=== PATIENT | male | born 1975 | race Caucasian/White ===

== ENCOUNTER → 2019-09-09 16:33 | Outpatient (CLI) | payer OTHER, SELFPAY ==
[2016-07-17 22:47] VITALS: BMI 33.4
[2019-09-09 17:07] LABS: Absolute Neutrophil Count 7.8 X10^3/uL (2.0-7.7); Basophil# 0.14 X10^3/uL; Basophil% 1.2 % (0-1); Eosinophil# 0.31 X10^3/uL; Eosinophils% 2.6 % (0-5); Hematocrit 51.2 % (40-54); Lymphocyte % 18.5 % (19-41); Mean Corp Hgb Conc 33.2 g/dL (32-36); Mean Corpuscular Hgb 29.3 pg (27.0-32.0); Mean Corpuscular Volume 88.1 fL (80-94); Mean Platelet Vol. 10.8 fl (6.2-12.0); Monocyte# 1.34 X10^3/uL; Monocyte% 11.3 % (0-10); NRBC Flagged by Analyzer 0 % (0-5); Neutrophil # 7.78 X10^3/uL (2.7-7.7); Neutrophil % 65.6 % (47-70); Platelet Count 300 K/mm3 (150-450); RBC Distribution Width CV 12.6 % (11.6-14.6); RBC Distribution Width SD 40.9 fl (35.1-43.9); Red Blood Count 5.81 M/mm3 (4.6-6.2); White Blood Count 11.9 K/mm3 (4.4-11.0)
[2019-09-09 17:31] LABS: ALB/GLOB Ratio 0.9 RATIO (0.9-2.4); AST(SGOT) 25 U/L (15-37); Alanine Aminotransfer ALT/SGPT 74 U/L (16-61); Albumin, Serum 3.6 g/dL (3.2-5.0); Alkaline Phosphatase 86 U/L (45-117); Anion Gap 5 (5-15); BUN 13 mg/dL (7-18); BUN/Creat Ratio 13.9 RATIO (10-20); Calcium,Total 9.7 mg/dL (8.5-10.1); Chloride 105 mmol/L (98-107); Creatinine, Serum 0.93 mg/dL (0.70-1.30); EST Glomerular Filtration Rate 94 mL/min (>60); Est Glom Filt Rate - Afr Amer 114 mL/min (>60); Globulin 4.2 g/dL (2.2-4.2); Glucose 94 mg/dL (74-106); Potassium 4.4 mmol/L (3.5-5.1); Protein, Total 7.8 g/dL (6.4-8.2); Sodium Level 141 mmol/L (136-145); Thyroid Stim Hormone (TSH) 2.47 uIU/mL (0.358-3.74)
== END ==
PROVIDERS: Visit Provider Family Medicine Geriatric Medicine
DX: I10 Essential (primary) hypertension (principal)
CPT/HCPCS: 36415; 80053; 84443; 85025

== ENCOUNTER 2019-10-11 21:22 | Emergency (ER) | payer OTHER, SELFPAY ==
[2019-10-11 21:23] VITALS: BP 206/131; PULSE 103; RESP 15; TEMP 36.2; O2SAT 97; BMI 42.4
--- NOTE | 2019-10-11 21:58 | EKG12_ITS ---
Test Reason : CP Blood Pressure : / mmHG Vent. Rate : 100 BPM Atrial Rate : 100 BPM P-R Int : 110 ms QRS Dur : 078 ms QT Int : 344 ms P-R-T Axes : 046 029 047 degrees QTc Int : 443 ms Sinus rhythm with short DC Nonspecific ST and T wave abnormality Abnormal ECG Confirmed by JUICE EDWARDS, MADDY ([id number]), offline editor STACIE SCOTT ([id number]) on 10/14/2019 2:38:04 PM Referred By: MARY Confirmed By:MADDY BOSE MD
[2019-10-11] MEDS: Aspirin 81 MG TAB.CHEW 324 MG PO (22:03)
[2019-10-11 22:04] VITALS: O2SAT 94
--- NOTE | 2019-10-11 22:04 | ED.DCSUM_ITS ---
History of Present Illness Chief Complaint: Chest Pain Informant: Patient Narrative: Patient is a 43-year-old male presenting with 3 days of chest tightness. Patient states he thought it would go away and it has not. He states he is had some slight associated shortness of breath on exertion but has not thought too much of it. He denies any associated cough or fever. He states he feels hot now but thinks it is because the room is hot and he is wearing a mask. He is not had chest pain with it. He denies any associated nausea, vomiting or diaphoresis. He denies any swelling of his legs. He states a couple years ago he had a similar episode of chest tightness and it turned out to be nothing. Patient has been told he has borderline high blood pressure but is not on any medication. He does have obstructive sleep apnea and is compliant with his CPAP. He has had no change in his sleep habits lately. He denies any orthopnea. He denies any sick contacts. He denies any other complaints at this time. Prior Similar Symptoms: No CVD Risk Factors: Hypertension, Smoking Past Medical History - Allergies and Home Meds Allergies/Adverse Reactions: Allergies shellfish derived Allergy (Verified 10/11/19 21:30) Rash Primary Care Physician: Roni Luke MD [Primary Care Provider] - Past Medical History: - - Hypertension?not currently on any medications, obstructive sleep apnea Surgical History: noncontributory Smoking Status: Current every day smoker - Family History Maternal Family History: Reports: No pertinent history Paternal Family History: Reports: No pertinent history Review of Systems General: Denies: Chills, Fever, Sweats Eyes: Denies: Visual changes - bilaterally, Diplopia ENT: Denies: Rhinorrhea, Sore throat Cardiovascular: Reports: Chest pain - Tightness. Denies: Palpitations Respiratory: Reports: Dyspnea. Denies: Cough, Dyspnea on exertion Gastrointestinal: Denies: Abdominal pain, Nausea, Vomiting, Diarrhea, Melena, Hematochezia Genitourinary: Denies: Dysuria, Hematuria, Frequency Musculoskeletal: Denies: Back pain, Extremity Pain Skin: Denies: Rash, Wounds Neurological: Denies: Headache, Weakness, Numbness Physical Exam Vital Signs/Narrative: Vital Signs Temp Pulse Resp BP Pulse Ox 10/11/19 21:23 97.1 F L 103 H 15 206/131 H 97 Inital Vital Signs reviewed: Yes General: Well nourished, Well developed, Obese, No Acute Distress Head: Normocephalic, Atraumatic Eyes: Perrl, EOMI ENT: Moist mucous membranes, No rhinorrhea Neck: Supple, Nontender Cardiovascular: Regular rhythm, No murmurs, Tachycardia Respiratory: No distress, CTA bilaterally, Chest nontender Abdomen: Soft, Nontender, Nondistended, Normal bowel sounds Back: Nontender, Normal Inspection Extremities: Nontender, No edema. Negative for: Calf Tenderness Skin: Normal color, No rash, - - Patient sweating Neurological: Alert, Oriented x3, Cranial nerves II-XII grossly intact, Normal Strength, Normal Sensation Psychological: Normal affect, Normal Mood Diagnostic/Tx/Re-eval Chest X-Ray - ED: 1 View, Read by ED Physician, Read by Radiologist, No Acute Disease Clinical Impression(s) from Imaging Studies Chest X-Ray 10/11/19 22:05 IMPRESSION: Stable elevation of the right hemidiaphragm. No acute pulmonary findings. Electronically Signed: Danny Sanderson MD at 22:25 EDT Tel , Service support , Laboratory Data 10/11/19 10/11/19 10/11/19 21:45 21:45 21:45 WBC 12.9 H RBC 6.01 Hgb 17.9 H Hct 53.4 MCV 88.9 MCH 29.8 MCHC 33.5 RDW Std Deviation 41.0 RDW Coeff of Kassidy 12.6 Plt Count 313 MPV 10.6 Immature Gran % (Auto) 0.800 Neut % (Auto) 66.9 Lymph % (Auto) 18.4 L [place] % (Auto) 10.7 H Eos % (Auto) 2.1 Baso % (Auto) 1.1 H Absolute Neuts (auto) 8.6 H Absolute Lymphs (auto) 2.37 Nucleated RBC % 0 PT 11.8 INR 0.9 D-Dimer Quant (PE/DVT) 0.30 Sodium 139 Potassium 4.5 Chloride 107 Carbon Dioxide 27.0 Anion Gap 5 BUN 11 Creatinine 1.04 Estim Creat Clear Calc 92.53 Est GFR (MDRD) Af Amer 100 Est GFR (MDRD) Non-Af 83 BUN/Creatinine Ratio 10.6 Glucose 167 H Calcium 9.3 Troponin I < 0.015 B-Natriuretic Peptide 10/11/19 21:45 WBC RBC Hgb Hct MCV MCH MCHC RDW Std Deviation RDW Coeff of Kassidy Plt Count MPV Immature Gran % (Auto) Neut % (Auto) Lymph % (Auto) [place] % (Auto) Eos % (Auto) Baso % (Auto) Absolute Neuts (auto) Absolute Lymphs (auto) Nucleated RBC % PT INR D-Dimer Quant (PE/DVT) Sodium Potassium Chloride Carbon Dioxide Anion Gap BUN Creatinine Estim Creat Clear Calc Est GFR (MDRD) Af Amer Est GFR (MDRD) Non-Af BUN/Creatinine Ratio Glucose Calcium Troponin I B-Natriuretic Peptide 29.8 - Rhythm Strip Rhythm Strip: Sinus Tach Rate: 100 Ectopy: None - EKG Initial EKG Interpretation: Sinus Tachycardia, - - Sinus tachycardia at a rate of 100 IL interval 110 QRS 78 QTc [address] segments Treatment: Aspirin TRUDY Risk: No Positive TRUDY Elements Score: 0 - Medical Decision Making Patient is evaluated for hypertension and chest tightness. He denies chest pain per se just has this diffuse tightness in his chest. Is been ongoing for 3 days. He has some very mild shortness of breath associated with it. No associated jaw or arm pain. No swelling of his legs. No upper respiratory or flulike symptoms. Vital signs are significant for hypertension. Patient's been told his blood pressures been elevated the past is not sure how high. He is not on any medications for it. EKG is relatively unremarkable with no dynamic ST segment changes. Is not consistent with a STEMI. As patient is tachycardic on arrival otherwise low risk for PE, I did check a d-dimer. This was normal. Troponin was normal. Chest x-ray not show an acute process. Normal proBNP and no signs of fluid overload. His heart score is 2 and he is low risk. His chest pain is atypical for ACS. While patient is hypertensive he does not have any fi ndings consistent with a hypertensive emergency. He is given 1 dose of hydrochlorothiazide in the emergency room. He is counseled to check his blood pressure over the next few days and to return if it worsens or he is significantly worsening symptoms. He will follow-up with his PCP on [place] for likely blood pressure check and arrangement for outpatient cardiac evaluation. Did discuss with on-call physician, Dr. Smith who is agreeable with this plan. Patient has not started on antihypertensive from the ER as I only have today as evidence of high blood pressures. Patient is counseled on signs and symptoms requiring return to the emergency room. Patient verbalizes agreement and understand this plan. Patient discharged home in stable and improved condition. ED Disposition - Plan for ED Patient: Disposition: Home or Assisted Living Diagnosis: Chest tightness, Hypertension Instructions: ED HBP No Tx, ED Chest Pain Atypical Unkn Cause Referrals: Roni Luke MD [Primary Care Provider] - Additional Instructions: Please check your blood pressure tomorrow. If he continues to be significantly elevated (top number over 200) and you continue to have chest tightness please return to the emergency room. Your symptoms worsen return the emergency room. Otherwise please follow-up with your primary care doctor on Monday for blood pressure check and further evaluation of this chest tightness.
--- NOTE | 2019-10-11 22:05 | RAD_ITS ---
STUDY: X-RAY CHEST REASON FOR EXAM: Male, 43 years old. chest pain TECHNIQUE: Single frontal view of the chest. COMPARISON: 07/17/2016 FINDINGS: Stable elevation of the right hemidiaphragm. No acute pulmonary findings. There is no demonstrated pleural abnormality. Normal size heart. Normal mediastinum and sammy. Normal visualized pulmonary arteries. Normal visualized aortic arch and descending thoracic aorta. Normal visualized thoracic spine. Normal visualized ribs, clavicles, and shoulders. There is no demonstrated abnormality of the visualized soft tissue structures of the upper abdomen. RAD/Chest 1 View (Portable) IMPRESSION: Stable elevation of the right hemidiaphragm. No acute pulmonary findings. Electronically Signed: Danny Sanderson MD at 22:25 EDT Tel , Service support ,
[2019-10-11 22:13] LABS: Absolute Lymphocyte Count 2.37 X10^3/uL (0.83-4.51); Absolute Neutrophil Count 8.6 X10^3/uL (2.0-7.7); Basophil# 0.14 X10^3/uL; Basophil% 1.1 % (0-1); Eosinophil# 0.27 X10^3/uL; Eosinophils% 2.1 % (0-5); Hematocrit 53.4 % (40-54); Hemoglobin 17.9 g/dL (13.0-16.5); Lymphocyte # 2.37 X10^3/ul (4.0); Lymphocyte % 18.4 % (19-41); Mean Corp Hgb Conc 33.5 g/dL (32-36); Mean Corpuscular Hgb 29.8 pg (27.0-32.0); Mean Corpuscular Volume 88.9 fL (80-94); Mean Platelet Vol. 10.6 fl (6.2-12.0); Monocyte# 1.38 X10^3/uL; Monocyte% 10.7 % (0-10); NRBC Flagged by Analyzer 0 % (0-5); Neutrophil # 8.64 X10^3/uL (2.7-7.7); Neutrophil % 66.9 % (47-70); Platelet Count 313 K/mm3 (150-450); RBC Distribution Width CV 12.6 % (11.6-14.6); Red Blood Count 6.01 M/mm3 (4.6-6.2); White Blood Count 12.9 K/mm3 (4.4-11.0)
[2019-10-11 22:16] LABS: International Normalized Ratio 0.9; Prothrombin Time (Protime)PT. 11.8 SECONDS (11.7-14.9)
[2019-10-11 22:20] LABS: Anion Gap 5 (5-15); BUN 11 mg/dL (7-18); BUN/Creat Ratio 10.6 RATIO (10-20); Calcium,Total 9.3 mg/dL (8.5-10.1); Chloride 107 mmol/L (98-107); Creatinine, Serum 1.04 mg/dL (0.70-1.30); EST Glomerular Filtration Rate 83 mL/min (>60); Est Glom Filt Rate - Afr Amer 100 mL/min (>60); Estimated Creatinine Clearance 92.53 ml/min; Glucose 167 mg/dL (74-106); Potassium 4.5 mmol/L (3.5-5.1); Sodium Level 139 mmol/L (136-145)
[2019-10-11 22:22] VITALS: BP 184/102
[2019-10-11 22:34] LABS: BNP,B-Type NATRIURETIC PEPTIDE 29.8 pg/mL (0-100)
[2019-10-11 23:12] VITALS: BP 176/75; PULSE 81; RESP 22
[2019-10-11] MEDS: hydroCHLOROthiazide 25 MG Tablet PO (23:46)
== END 2019-10-12 00:01 | disposition home or self-care (01) ==
PROVIDERS: Emergency Provider Emergency Medicine; PCP Family Medicine
DX: R07.89 Other chest pain (principal); I10 Essential (primary) hypertension; E66.9 Obesity, unspecified; F17.200 Nicotine dependence, unspecified, uncomplicated; R06.02 Shortness of breath
CPT/HCPCS: 71045; 80048; 83880; 84484; 85025; 85379; 85610; 93005; 99284; A4216

== ENCOUNTER 2019-12-13 11:24 | Emergency (ER) | payer OTHER, SELFPAY ==
[2019-12-13 11:25] VITALS: BP 193/120; PULSE 101; RESP 17; TEMP 36.1; O2SAT 96; BMI 41.5
--- NOTE | 2019-12-13 11:35 | CT_ITS ---
STUDY: CT BRAIN WITHOUT CONTRAST REASON FOR EXAM: Male, 44 years old. PT STATED HEADACHE, BP OF 177/123 RADIATION DOSAGE (If Supplied By Facility): CTDIvol = ( 44.99 ) mGy, DLP = ( 796.11 ) mGycm TECHNIQUE: Transaxial CT imaging of the brain was performed without administration of intravenous contrast material. Individualized dose optimization techniques were used for this CT. COMPARISON: No relevant priors. FINDINGS: Normal soft tissue structures. Normal calvarium. Normal size ventricles and extra-axial spaces for the patient''s age. Normal white matter tracts of the cerebral hemispheres. Normal basal ganglia and thalami. Normal brainstem. Normal cerebellum. There is no intracranial hemorrhage. There are no findings of an acute ischemic infarction. Mild mucosal thickening and probable retention cysts in the paranasal sinuses. CT/Brain/Head without Contrast IMPRESSION: Normal unenhanced CT scan of the brain. Mild paranasal sinus disease. Electronically Signed: Sathish Ansari DO at 12:22 EDT Tel [phone], Service support ,
--- NOTE | 2019-12-13 11:35 | EKG12_ITS ---
Test Reason : HTN Blood Pressure : / mmHG Vent. Rate : 071 BPM Atrial Rate : 071 BPM P-R Int : 134 ms QRS Dur : 082 ms QT Int : 422 ms P-R-T Axes : 019 010 157 degrees QTc Int : 458 ms Normal sinus rhythm Nonspecific T wave abnormality Abnormal ECG Confirmed by LUCIANA SHARP ([id number]), editor greeting card MAURA TAYLOR ([id number]) on 12/16/2019 2:12:41 PM Referred By: RONY Confirmed By:LUCIANA SHARP
--- NOTE | 2019-12-13 11:38 | ED.VIS.GEN ---
History of Present Illness Chief Complaint: Hypertension Detail of Chief Complaint: Headache, sweats Informant: Patient, Family Onset: Days - 3 days Current Severity: Mild Maximum Severity: Moderate Narrative: Patient presents with headache for the past 3 days. He points to the bilateral temporal area. states that he has been sweating a lot in spite of having central air conditioning. Blood pressure was checked and he was noted be quite hypertensive. On review of records patient was here 2 months ago with atypical chest pain. He was found to be significantly hypertensive at that time. Plan was to follow-up with his PCPs office for repeat blood pressure check and initiation of medication if needed. Patient never followed up for that visit. Past Medical History - Allergies and Home Meds Allergies/Adverse Reactions: Allergies shellfish derived Allergy (Verified 12/13/19 11:25) Rash Primary Care Physician: Roni Luke MD [Primary Care Provider] - Past Medical History: None Surgical History: noncontributory Lives: With Family Smoking Status: Current every day smoker - Family History Maternal Family History: Reports: No pertinent history Paternal Family History: Reports: No pertinent history Review of Systems General: Denies: Chills, Fever Eyes: Denies: Visual changes - bilaterally ENT: Denies: Bilateral ear pain Cardiovascular: Denies: Chest pain Respiratory: Denies: Dyspnea, Cough Gastrointestinal: Reports: Nausea. Denies: Abdominal pain, Vomiting Genitourinary: Denies: Dysuria Neurological: Reports: Headache Hematologic: Denies: Easy bruising, Easy bleeding Allergy: Denies: Uticaria Physical Exam Vital Signs/Narrative: Vital Signs Temp Pulse Resp BP Pulse Ox 12/13/19 11:25 96.9 F L 101 H 17 193/120 H 96 Inital Vital Signs reviewed: Yes General: Well nourished, Well developed Head: Normocephalic ENT: Moist mucous membranes Neck: Supple Cardiovascular: Regular rate, Regular rhythm Respiratory: No distress, CTA bilaterally Abdomen: Soft, Nontender Extremities: Nontender Skin: Normal color, No rash Neurological: Alert, Oriented x3, Normal Strength, Normal Sensation Psychological: Normal affect Diagnostic/Tx/Re-eval Impressions Brain CT 12/13/19 11:35 IMPRESSION: Normal unenhanced CT scan of the brain. Mild paranasal sinus disease. Electronically Signed: Sathish Ansari DO at 12:22 EDT Tel [phone], Service support , 12/13/19 11:35 Brain/Head without Contrast [CT] Stat Laboratory Results 12/13/19 12/13/19 11:40 11:40 WBC 15.8 H RBC 5.81 Hgb 17.7 H Hct 50.5 MCV 86.9 MCH 30.5 MCHC 35.0 RDW Std Deviation 39.4 RDW Coeff of Kassidy 13.0 Plt Count 315 MPV 10.1 Immature Gran % (Auto) 0.900 Neut % (Auto) 67.9 Lymph % (Auto) 17.8 L [place] % (Auto) 11.1 H Eos % (Auto) 1.4 Baso % (Auto) 0.9 Absolute Neuts (auto) 10.7 H Absolute Lymphs (auto) 2.80 Nucleated RBC % 0 [address] Review May foll Reactive Lymphocytes RARE Platelet Estimate ADEQUATE RBC Morphology NORM C+C Sodium 137 Potassium 3.4 L Chloride 102 Carbon Dioxide 28.0 Anion Gap 7 BUN 12 Creatinine 0.94 Estim Creat Clear Calc 101.33 Est GFR (MDRD) Af Amer 113 Est GFR (MDRD) Non-Af 93 BUN/Creatinine Ratio 12.8 Glucose 125 H Calcium 8.8 Troponin I < 0.015 - EKG Initial EKG Interpretation: Sinus Rhythm - Sinus at [address] change. - Medical Decision Making Patient was given 10 mg of IV labetalol. Blood pressure did come down into the 160s. Blood pressure is currently 180 systolic. Patient does state that his headache feels better. I spoke with Dr. Rodrigues, on-call for the patient's PCP. We will start the patient on Lopressor 50 mg. Patient is to follow-up in the office for repeat blood pressure checks. ED Disposition - Plan for ED Patient: Disposition: Home or Assisted Living Diagnosis: Hypertension Instructions: ED Hypertension New Begin Treatment Prescriptions: Metoprolol Tartrate [Lopressor (Beta Silvio)] 50 mg PO BID #60 tab Transmission Status: Pending to [id number] Referrals: Roni Luke MD [Primary Care Provider] - 1-2 Weeks
[2019-12-13 11:50] LABS: Absolute Neutrophil Count 10.7 X10^3/uL (2.0-7.7); Basophil# 0.14 X10^3/uL; Basophil% 0.9 % (0-1); Eosinophil# 0.22 X10^3/uL; Eosinophils% 1.4 % (0-5); Hematocrit 50.5 % (40-54); Hemoglobin 17.7 g/dL (13.0-16.5); Lymphocyte % 17.8 % (19-41); Mean Corpuscular Hgb 30.5 pg (27.0-32.0); Mean Corpuscular Volume 86.9 fL (80-94); Mean Platelet Vol. 10.1 fl (6.2-12.0); Monocyte# 1.75 X10^3/uL; Monocyte% 11.1 % (0-10); NRBC Flagged by Analyzer 0 % (0-5); Neutrophil # 10.71 X10^3/uL (2.7-7.7); Neutrophil % 67.9 % (47-70); POSITIVE DIFFERENTIAL YES; Platelet Count 315 K/mm3 (150-450); RBC Distribution Width SD 39.4 fl (35.1-43.9); Red Blood Count 5.81 M/mm3 (4.6-6.2); White Blood Count 15.8 K/mm3 (4.4-11.0)
[2019-12-13 11:52] VITALS: BP 193/114
[2019-12-13 11:52] LABS: Differential Indicated SCAN CRITERIA MET
[2019-12-13 11:57] VITALS: BP 163/99; PULSE 75
[2019-12-13 12:08] LABS: Anion Gap 7 (5-15); BUN 12 mg/dL (7-18); BUN/Creat Ratio 12.8 RATIO (10-20); Calcium,Total 8.8 mg/dL (8.5-10.1); Chloride 102 mmol/L (98-107); Creatinine, Serum 0.94 mg/dL (0.70-1.30); EST Glomerular Filtration Rate 93 mL/min (>60); Est Glom Filt Rate - Afr Amer 113 mL/min (>60); Estimated Creatinine Clearance 101.33 ml/min; Glucose 125 mg/dL (74-106); Potassium 3.4 mmol/L (3.5-5.1); Sodium Level 137 mmol/L (136-145)
[2019-12-13 12:24] VITALS: BP 166/113
[2019-12-13 12:31] LABS: Platelet Estimate ADEQUATE (ADEQ); Reactive Lymphocyte RARE; Red Cell Morphology NORM C+C NORMAL (NORM C&C)
[2019-12-13 12:41] VITALS: BP 153/106
[2019-12-13 13:35] VITALS: BP 182/112; PULSE 72; O2SAT 97
[2019-12-13] MEDS: Metoprolol Tartrate 25 MG Tablet 50 MG PO (13:51)
[2019-12-16 11:40] LABS: Pathologist Review Reviewed
== END 2019-12-13 13:52 | disposition home or self-care (01) ==
PROVIDERS: Emergency Provider Emergency Medicine; PCP Family Medicine
DX: I10 Essential (primary) hypertension (principal); F17.200 Nicotine dependence, unspecified, uncomplicated
CPT/HCPCS: 70450; 80048; 84484; 85025; 93005; 96374; 99284; A4216

== ENCOUNTER 2021-07-04 12:33 | Emergency (ER) | payer OTHER, SELFPAY ==
[2021-07-04 12:33] VITALS: BP 158/87; PULSE 68; RESP 18; TEMP 36.4; O2SAT 97; BMI 41.8
--- NOTE | 2021-07-04 13:22 | RAD_ITS ---
STUDY: X-RAY - UNILATERAL RIBS ( RIGHT ) WITH CHEST REASON FOR EXAM: Male, 45 years old. Injury TECHNIQUE - RIBS: 4 view(s) of the ribs. TECHNIQUE - CHEST: Single frontal view of the chest. COMPARISON: Chest x-ray October 11, 2019 FINDINGS - RIBS: There are right fifth through seventh rib fractures of uncertain age. FINDINGS - CHEST: The lungs are clear and expanded. There is no demonstrated pleural abnormality. Normal size heart. Normal mediastinum and sammy. Normal visualized pulmonary arteries. Normal visualized aortic arch and descending thoracic aorta. Normal visualized thoracic spine. There are right fifth through seventh rib fractures of uncertain age. There is no demonstrated abnormality of the visualized soft tissue structures of the upper abdomen. RAD/Ribs Uni Min 3V w/PA Chest IMPRESSION: RIBS: Right rib fractures of uncertain age. CHEST: Right rib fractures of uncertain age. No pneumothorax. Electronically Signed: Mynor Coppola MD at 15:19 EST , Service support ,
[2021-07-04] MEDS: cycloBENZAPRine HCl 10 MG Tablet PO (13:30)
[2021-07-04] MEDS: HYDROcodone Bitartrate/Apap 5/325 Tablet PO (13:30)
[2021-07-04 14:33] VITALS: PULSE 16
[2021-07-04 16:00] VITALS: PULSE 70; RESP 18
--- NOTE | 2021-07-04 16:24 | EDS_ITS ---
HPI History of Present Illness Chief Complaint: Cough Detail of Chief Complaint: Right chest wall pain Informant: patient Onset/Context/Timing Onset: Weeks Current Severity: Moderate Maximum Severity: Moderate Narrative Narrative: Patient presents secondary to right-sided chest wall pain. Patient states just before [place] he had bronchitis. He coughed hard and felt pain in the right lateral ribs. Over the next couple weeks symptoms were improving. Today he had another coughing fit and has increased pain. He will report intermittent spasm-like pain on the right chest wall. No fever or chills. He was diagnosed with COVID 2 weeks ago [facility] Medical History Hypertension Home Medications escitalopram oxalate 20 mg PO DAILY 10/11/19 [History Last Taken Unknown] bupropion HCl 150 mg PO DAILY 12/13/19 [History Last Taken Unknown] metoprolol tartrate 50 mg PO BID #60 tab 12/13/19 [Rx Last Taken Unknown] cyclobenzaprine 10 mg PO BID PRN #10 tab 07/04/21 [Rx Last Taken Unknown] hydrocodone-acetaminophen 1 tab PO Q6H PRN 3 Days #10 tab 07/04/21 [Rx Last Taken Unknown] Allergy/AdvReac Type Severity Reaction Status Date / Time shellfish derived Allergy Rash Verified 07/04/21 13:13 Social History Smoking Status: Current every day smoker tobacco type: cigarettes ROS ROS ED Constitutional Constitutional ED: Denies chills or fever(s) Eyes Eyes: Denies change in vision ENT ENT ED: Denies sore throat Cardiovascular Cardiovascular: Reports chest pain Respiratory/Chest Respiratory/Chest: Reports cough; Denies dyspnea Gastrointestinal Gastrointestinal: Denies abdominal pain, nausea or vomiting Genitourinary Genitourinary ED: Denies dysuria Musculoskeletal Musculoskeletal: Denies back pain Integumentary Denies rash Neurologic Neurologic: Denies headache(s) or weakness Allergic/Immunologic Allergic/Immunologic ED: Denies urticaria EXAM Physical Exam Const Vital Signs: 07/04/21 12:33 07/04/21 13:10 07/04/21 14:33 Temperature 97.6 F L Temperature Source Temporal Pulse Rate 68 16 L Respiratory Rate 18 Respiratory Effort Normal Respiratory Pattern Normal Blood Pressure 158/87 H Blood Pressure Mean 110 Pulse Ox 97 Oxygen Delivery Method Room Air 07/04/21 16:00 07/04/21 16:36 Temperature Temperature Source Pulse Rate 70 Respiratory Rate 18 16 Respiratory Effort Respiratory Pattern Blood Pressure Blood Pressure Mean Pulse Ox Oxygen Delivery Method Positive well nourished and well developed General Appearance ED: well developed HEENT Reports moist mucous membranes Eyes PERRL and EOMs intact bilaterally Neck no lymphadenopathy and supple Chest Wall inspection of chest normal Chest Narrative: Right lateral chest wall pain on palpation. No crepitus. Resp normal respiratory effort and clear to auscultation bilaterally Cardio regular rate and regular rhythm GI non-tender Palpation: soft Extremity normal to inspection Neuro oriented x3 Sensorium / Orientation: alert Psych mental status grossly normal Skin no rashes or lesions noted MDM MDM MDM Narrative Medical decision making narrative: Patient given [place] and Flexeril for pain and spasm. Rib series with chest x-ray obtained. Radiography Diagnostic Testing: Clinical Impression(s) from Imaging Studies Ribs w/Chest X-Ray 07/04/21 13:22 IMPRESSION: RIBS: Right rib fractures of uncertain age. CHEST: Right rib fractures of uncertain age. No pneumothorax. Electronically Signed: Mynor Coppola MD at 15:19 EST , Service support , Treatment and Re-Evaluation Comments:: Rib x-rays per my interpretation reveal right-sided fracture. Radiology to rotation is reviewed and does include fractures of ribs 5, 6, and 7 of uncertain age. No evidence of pneumothorax. Test results discussed with the patient. Patient given prescription for [place] and Flexeril. He is given work restrictions for this week. Discharge Plan Triage Chief Complaint: Cough ED Provider: Sherie Simpson Dx/Rx/DC Orders Clinical Impression: Fracture, ribs Instructions: ED Rib Fracture Prescriptions: New hydrocodone-acetaminophen 5-325 mg tablet 1 tab PO Q6H PRN (Reason: pain) 3 Days Qty: 10 RF: 0 cyclobenzaprine 10 mg tablet 10 mg PO BID PRN (Reason: muscle spasm) Qty: 10 RF: 0 No Action escitalopram oxalate 20 MG tablet 20 mg PO DAILY RF: 0 bupropion HCl 150 MG tablet extended release 24 hr 150 mg PO DAILY RF: 0 metoprolol tartrate 50 MG tablet 50 mg PO BID Qty: 60 RF: 0 Stand Alone Forms: ED Work / School Excuse Primary Care Provider: Roni Luke Referrals: Roni Luke MD [Primary Care Provider] - 1 Week Disposition Disposition: Home, Self Care Discharge Date/Time: 07/04/21 16:36
[2021-07-04 16:36] VITALS: RESP 16
== END 2021-07-04 16:36 | disposition home or self-care (01) ==
PROVIDERS: Emergency Provider Emergency Medicine; PCP Family Medicine; Visit Provider Emergency Medicine
DX: S22.41XA Multiple fractures of ribs, right side, initial encounter for closed fracture (principal); F17.210 Nicotine dependence, cigarettes, uncomplicated; I10 Essential (primary) hypertension; X58.XXXA Exposure to other specified factors, initial encounter; Z79.899 Other long term (current) drug therapy
CPT/HCPCS: 71101; 99283

== ENCOUNTER 2021-07-24 07:01 | Emergency (ER) | payer OTHER, SELFPAY ==
[2021-07-24 07:03] VITALS: BP 116/88; PULSE 75; RESP 18; TEMP 36.7; O2SAT 94; BMI 41.0
--- NOTE | 2021-07-24 07:13 | ED.VIS.CHEST ---
HPI History of Present Illness Chief Complaint: Other, Pain/Inj Detail of Chief Complaint: Right lateral lower chest wall pain with a history of 3 rib fractures. Informant: patient Onset/Context/Timing Onset: Weeks Activity at onset: gradual Timing: Intermittent Quality: Positive for Aching, Sharp and Stabbing Location: Right Chest Current Severity: Mild Maximum Severity: Moderate Worsened By: Movement of Torso and Breathing Relieved By: Remaining Still Associated Symptoms: Positive for Cough; Negative for Nausea, Vomiting, Diaphoresis, Dyspnea, Fever, Acid Reflux and Palpitations Narrative Narrative: 45-year history of hypertension. For the last several weeks he has had a known diagnosis of 3 rib fractures on the right chest from numbers 5 6, 6 and 7. He had a prior emergency visit around July 04 and x-ray obtained at that time. I believe this occurred from coughing. He has had no chest wall trauma. States today he was coughing again on his way to work and got significant right-sided chest wall pain. No shortness of breath. No other symptoms. He has had no fever. Prior Similar Symptoms: Yes Recent Illness/Hospitalization: No CVD Risk Factors: Positive for Hypertension PE Risk Factors: Negative for Recent Travel/Surgery, Recent Immobilization, Prior DVT or PE, Cancer and OCP + Smoking + >/=35 PFSH PFSH Medical History Hypertension Home Medications escitalopram oxalate 20 mg PO DAILY 10/11/19 [History Last Taken Unknown] bupropion HCl 150 mg PO DAILY 12/13/19 [History Last Taken Unknown] metoprolol tartrate 50 mg PO BID #60 tab 12/13/19 [Rx Last Taken Unknown] cyclobenzaprine 10 mg PO BID PRN #10 tab 07/04/21 [Rx Last Taken Unknown] hydrocodone-acetaminophen 1 tab PO Q6H PRN 3 Days #10 tab 07/04/21 [Rx Last Taken Unknown] Allergy/AdvReac Type Severity Reaction Status Date / Time shellfish derived Allergy Rash Verified 07/24/21 07:09 Social History Smoking Status: Current every day smoker tobacco type: cigarettes ROS ROS ED ROS Narrative Right chest wall pain. No recent illness. He had COVID 1 to 2 months ago. Review of Systems ROS Unobtainable: Denies due to encephalopathy Constitutional Constitutional ED: Denies fever(s) or subjective Eyes Eyes: Denies none ENT ENT ED: Denies ear pain or rhinorrhea Cardiovascular Cardiovascular: Reports as per HPI and chest pain; Denies palpitations Respiratory/Chest Respiratory/Chest: Reports cough; Denies dyspnea Gastrointestinal Gastrointestinal: Denies abdominal pain, diarrhea, nausea or vomiting Genitourinary Genitourinary ED: Denies dysuria Musculoskeletal Musculoskeletal: Denies myalgias Integumentary Denies rash Neurologic Neurologic: Denies headache(s) Psychiatric Psychiatric: Denies depression Endocrine Endocrinology: Denies polyuria Hematologic/Lymphatic Hematologic/Lymphatic: Denies easy bruising Allergic/Immunologic Allergic/Immunologic ED: Denies urticaria EXAM Physical Exam Narrative Exam Narrative: 46-year-old male no acute distress. Sitting upright in the chair. Vital signs stable afebrile. Pulse ox 94% on room air. H EENT exam unremarkable. Neck nontender no JVD. No lymphadenopathy. Lungs clear to auscultation bilaterally. Splinting on the right. Right lateral lower rib cage tenderness. No ecchymosis or bruising. No subcu air crepitance. Heart regular rhythm no murmur rate about 80. Abdomen morbidly obese with soft nontender normal bowel sounds no peritoneal signs. Patient moving all 4 extremities. Calves are nontender without edema or cords. Neurologically is awake and alert. Const Vital Signs: 07/24/21 07:03 07/24/21 07:09 Temperature 98.1 F Temperature Source Oral Pulse Rate 75 Respiratory Rate 18 Respiratory Effort Normal Non-Labored Respiratory Pattern Normal Blood Pressure 116/88 H Blood Pressure Mean 97 Pulse Ox 94 Oxygen Delivery Method Room Air Positive well nourished, well developed and obese; Negative for cachectic, contractures or unkempt General Appearance ED: well developed and NAD; Negative for unkempt, cachectic, contractures or pallor Nutritional Appearance: obese; Negative for cachectic HEENT Reports moist mucous membranes normocephalic and atraumatic; Negative for trauma or tenderness Eyes PERRL and EOMs intact bilaterally General Eye ED: Yes pale conjunctiva; Negative for scleral icterus Neck no lymphadenopathy, supple and no JVD General: Negative for tenderness Chest Wall inspection of chest normal and palpation of chest normal Chest: Negative for tenderness Resp normal respiratory effort and clear to auscultation bilaterally Effort and Inspection: respiratory distress Auscultation: Negative for rales, rhonchi or wheezes Cardio regular rate, regular rhythm, S1 normal heart sound, S2 normal heart sound and no murmurs Rate: Negative for bradycardia or tachycardic GI normal to inspection, nondistended, normoactive bowel sounds, soft to palpation, non-tender, non-distended and no masses Back/Spine no CVA tenderness and no thoracic nor lumbar tenderness General Back: Negative for CVA tenderness Extremity normal to inspection General Extremety ED: Negative for edema or tenderness General Extremity: Negative for edema Neuro oriented x3 and CN's II-XII intact bilaterally Sensorium / Orientation: awake, alert, oriented to person, oriented to place and oriented to time Motor Exam: strength 5/5 throughout Psych mental status grossly normal Appearance: Negative for unkempt Mood & Affect: Negative for depressed or tearful Skin no rashes or lesions noted and no wounds General Skin Exam: Negative for jaundice or pallor MDM MDM MDM Narrative Medical decision making narrative: 45-year-old male with known rib fractures on the right numbers 5, 6 and seventh rib. With pain. Chest x-ray being obtained. Otherwise exam benign. I did review his last emergency department visit. Patient was offered but did not anything else for pain. He took Aleve earlier today. Patient doing well on repeat exam at 7:50 AM. We went over his x-rays and discussed the plan and will be discharged home. Radiography Chest X-Ray - ED: 2 View, Read by ED Physician, Heart, Lungs, Mediastinum, Bony Structures, No Acute Disease and Chronic Changes Diagnostic Testing: Clinical Impression(s) from Imaging Studies Chest X-Ray 07/24/21 07:21 IMPRESSION: No active disease. Electronically Signed: Billy Faulkner MD at 7:35 EST , Chest x-ray today, 2 views, AP and lateral, interpreted myself radiology shows no acute abnormality. I reviewed also the old films there is rib fractures on the right that I suspect are old. They are not seen well at all today on the AP and lateral view. There is no infiltrate there is no pneumothorax. I did go over the films with the patient. Discharge Plan Triage Chief Complaint: Other, Pain/Inj ED Provider: Dev Jacob Dx/Rx/DC Orders Clinical Impression: Acute chest wall pain, History of rib fracture, History of chronic hypertension Instructions: ED Rib Fracture Prescriptions: No Action escitalopram oxalate 20 MG tablet 20 mg PO DAILY RF: 0 bupropion HCl 150 MG tablet extended release 24 hr 150 mg PO DAILY RF: 0 metoprolol tartrate 50 MG tablet 50 mg PO BID Qty: 60 RF: 0 hydrocodone-acetaminophen 5-325 mg tablet 1 tab PO Q6H PRN (Reason: pain) 3 Days Qty: 10 RF: 0 cyclobenzaprine 10 mg tablet 10 mg PO BID PRN (Reason: muscle spasm) Qty: 10 RF: 0 Primary Care Provider: Roni Luke Referrals: Roni Luke MD [Primary Care Provider] - As Needed Activity Restrictions/Additional Instructions: Your chest x-ray looks good today. There is no collapsed lung. The ribs are healed or healing and this is probably an old injury. Ice to your chest wall. Use a pillow to brace your chest wall. Motrin, Aleve and/or Tylenol for pain. Disposition Disposition: Home, Self Care
--- NOTE | 2021-07-24 07:21 | RAD_ITS ---
STUDY: X-RAY CHEST REASON FOR EXAM: Male, 45 years old. hx of right rib fractures. pain TECHNIQUE: PA and lateral views of the chest. COMPARISON: 07/04/2021 FINDINGS: The lungs are clear and expanded. There is no demonstrated pleural abnormality. There is moderate cardiac enlargement. Normal mediastinum and sammy. Normal visualized pulmonary arteries. Normal visualized aortic arch and descending thoracic aorta. Normal visualized thoracic spine. Normal visualized ribs, clavicles, and shoulders. There is no demonstrated abnormality of the visualized soft tissue structures of the upper abdomen. RAD/Chest PA and Lateral IMPRESSION: No active disease. Electronically Signed: Billy Faulkner MD at 7:35 EST ,
== END 2021-07-24 07:58 | disposition home or self-care (01) ==
PROVIDERS: Emergency Provider Emergency Medicine; PCP Family Medicine; Visit Provider Emergency Medicine
DX: R07.89 Other chest pain (principal); F17.210 Nicotine dependence, cigarettes, uncomplicated; E66.9 Obesity, unspecified
CPT/HCPCS: 71046; 99282

== ENCOUNTER 2022-03-16 09:28 | Emergency (ER) | payer OTHER, SELFPAY ==
[2022-03-16 09:29] VITALS: BP 132/76; PULSE 65; RESP 18; TEMP 36.6; O2SAT 99; BMI 43.3
--- NOTE | 2022-03-16 09:53 | CT_ITS ---
STUDY: CT ABDOMEN AND PELVIS WITH CONTRAST REASON FOR EXAM: Male, 46 years old. Abdominal pain, abdominal ecchymosis RADIATION DOSAGE (If Supplied By Facility): CTDIvol = ( 18.74 ) mGy, DLP = ( 1435.35 ) mGycm TECHNIQUE: Transaxial images were obtained from the dome of the diaphragm to the symphysis pubis without oral contrast. IV 100mL Isovue-300 was administered. Sagittal and coronal images were reconstructed. Individualized dose optimization techniques were used for this CT. COMPARISON: None. FINDINGS: Minimal right pleural effusion with right basilar atelectasis. Coronary artery calcification. There is decreased attenuation of the liver consistent with steatosis. Hepatomegaly. There is evidence of a soft tissue hematoma overlying the right lower thorax and upper abdominal wall. This extends down into the lower abdomen on the right side. There is evidence of a nondisplaced right lower rib fractures. Normal gallbladder and extrahepatic biliary system. Normal spleen. Normal pancreas. Normal bilateral adrenal glands. Normal right kidney. There is a 4.8 signed by 4.4 cm cyst in the lower pole of the left kidney. There is a small hiatal hernia. Normal small intestine. Normal colon. The appendix is visualized and appears normal. Normal abdominal aorta. Normal inferior vena cava. Normal retroperitoneum. Normal urinary bladder. There are prostatic calcifications. Increased markings in the subcutaneous fat overlying the right lateral abdomen. There are mild degenerative changes of the visualized lumbar spine. CT/Abdomen/Pelvis W IV Cont ONLY IMPRESSION: Soft tissue hematoma overlying the lower right thorax and abdomen as described in keeping with history of trauma. Underlying nondisplaced rib fractures. Minimal right pleural effusion with right basilar atelectasis. Hepatomegaly and diffuse fatty infiltration of the liver. Left renal cyst. Electronically Signed: Jerry Ames MD at 11:15 EDT ,
--- NOTE | 2022-03-16 09:56 | EDS_ITS ---
HPI HPI - GI History of Present Illness Chief Complaint: Abd Pain Detail of Chief Complaint: Abdominal pain x1 week Informant: patient Narrative Narrative: Patient presents to the emergency department complaint not feeling well for the last week. Patient states that he developed a cough and about a week ago when he coughed he felt a pop in his right upper quadrant and flank. This morning he noticed ecchymosis and bruising to the abdomen after showering and he comes in for evaluation. Patient states that he had a similar episode a year ago. Patient denies any fevers. He did not take a COVID test. He has had the COVID- vaccine. Cough is mostly nonproductive. He denies shortness of breath. He denies chest pain. [facility] Medical History (Updated 03/16/22 @ 12:[address] April Martin DO) Depression Hypertension Home Medications escitalopram oxalate 20 mg tablet 20 mg PO DAILY 10/11/19 [History Last Taken Unknown] bupropion HCl 150 mg 24 hr tablet, extended release 150 mg PO DAILY 12/13/19 [History Last Taken Unknown] metoprolol tartrate 50 mg tablet 50 mg PO BID #60 tabs 12/13/19 [Rx Last Taken Unknown] cyclobenzaprine 10 mg tablet 10 mg PO BID PRN muscle spasm #10 tabs 07/04/21 [Rx Last Taken Unknown] hydrocodone-acetaminophen 5-325mg 5mg-325mg 1 tab PO Q4H PRN PRN Pain 3 days #20 TABLETS 03/16/22 [Rx Last Taken Unknown] Allergy/AdvReac Type Severity Reaction Status Date / Time shellfish derived Allergy Rash Verified 03/16/22 09:32 Social History Smoking Status: Current every day smoker tobacco type: cigarettes ROS ROS ED Review of Systems ROS Unobtainable: other Constitutional Constitutional ED: Reports lethargy; Denies chills, fever(s), sweats or weight loss Eyes Eyes: Denies blurry vision, change in vision or diplopia ENT ENT ED: Denies rhinorrhea or sore throat Cardiovascular Cardiovascular: Reports chest pain and racing heartbeat; Denies orthopnea Respiratory/Chest Respiratory/Chest: Reports dyspnea and dyspnea on exertion; Denies cough, orthopnea or sputum Gastrointestinal Gastrointestinal: Reports abdominal pain; Denies diarrhea, nausea or vomiting Genitourinary Genitourinary ED: Denies dysuria, hematuria or urinary frequency Musculoskeletal Musculoskeletal: Denies arthralgias, back pain, myalgias or neck pain Integumentary Reports other Details: Ecchymosis and bruising to abdomen ; Denies abscess, Abrasions or rash Neurologic Neurologic: Denies headache(s) or weakness Psychiatric Psychiatric: Denies anxiety, depression or suicidal thoughts Endocrine Endocrinology: Denies polydipsia, polyphagia or polyuria Hematologic/Lymphatic Hematologic/Lymphatic: Denies easy bleeding, easy bruising or lymphadenopathy Allergic/Immunologic Allergic/Immunologic ED: Denies mouth swelling, tongue swelling or urticaria EXAM Physical Exam Const Vital Signs: 03/16/22 09:29 03/16/22 11:04 Temperature 98 F 97.7 F L Temperature Source Temporal Oral Pulse Rate 65 63 Respiratory Rate 18 22 H Blood Pressure 132/76 H 149/81 H Blood Pressure Mean 94 103 Pulse Ox 99 96 Oxygen Delivery Method Room Air Room Air Positive well nourished and well developed General Appearance ED: well developed and NAD HEENT Reports TM's clear and moist mucous membranes normocephalic and atraumatic; Negative for trauma or tenderness Tympanic Membrane ED: Yes TM's clear Eyes PERRL and EOMs intact bilaterally General Eye ED: Negative for pale conjunctiva or scleral icterus Neck no lymphadenopathy, supple and no JVD General: Negative for tenderness Chest Wall inspection of chest normal and palpation of chest normal Chest: Negative for tenderness Resp normal respiratory effort and clear to auscultation bilaterally Effort and Inspection: Negative for respiratory distress or pain with movement Auscultation: Negative for rhonchi, wheezes or diminished lung sounds Cardio regular rate, regular rhythm, S1 normal heart sound, S2 normal heart sound and no murmurs Peripheral Pulses: pulses 2+ throughout GI normal to inspection, nondistended, normoactive bowel sounds, soft to palpation, non-tender, non-distended and no masses GI Narrative: Patient morbidly obese. Patient has mild diffuse tenderness on exam. Patient has ecchymosis and bruising noted mostly to the right flank and abdomen wrapping around the lower abdomen to the left lower quadrant. Back/Spine no CVA tenderness and no thoracic nor lumbar tenderness Extremity normal to inspection General Extremety ED: Negative for edema General Extremity: Negative for edema Neuro oriented x3, CN's II-XII intact bilaterally, no sensory deficits noted and gait normal Sensorium / Orientation: awake, alert, oriented to person, oriented to place and oriented to time Motor Exam: strength 5/5 throughout and strength abnormal Psych mental status grossly normal Skin no rashes or lesions noted and no wounds MDM MDM MDM Narrative Medical decision making narrative: IV line established on arrival. Lab work-up obtained showed a slightly elevated white count 15.9 which chronically seems to be elevated for this patient. Hemoglobin was 11.8 and hematocrit was 36. Chemistries unremarkable. Lactate was elevated 4.0 although clinical significance unclear. I do not feel patient is septic. CT scan of the abdomen pelvis does show right rib fractures with soft tissue hematoma extending down to the abdomen. This point he has rib fractures likely from coughing and he states that he has broken ribs before with coughing. He again is adamant he has had no other trauma. At this point he will be given a prescription for [place] for pain. Given some work restrictions and off work for few days as he is too uncomfortable to work. Lab Data Attestation: I reviewed the patient's lab results. Labs: Laboratory Results - last 24 hr 03/16/22 03/16/22 03/16/22 09:45 09:45 09:45 WBC 15.9 H RBC 3.81 L Hgb 11.8 L Hct 35.7 L MCV 93.7 MCH 31.0 MCHC 33.1 RDW Std Deviation 43.2 RDW Coeff of Kassidy 12.8 Plt Count 318 MPV 11.1 Neut % (Auto) Not Reportable Absolute Neuts (auto) 11.0 H Absolute Lymphs (auto) 2.10 Total Counted 100 Neutrophils % (Manual) 69 Lymphocytes % (Manual) 13 L Monocytes % (Manual) 12 H Eosinophils % (Manual) 5 Metamyelocytes % 1 Diff Path Review May foll Platelet Estimate ADEQUATE Poikilocytosis RARE Ovalocytes RARE Sodium 136 Potassium 4.2 Chloride 106 Carbon Dioxide 22.0 Anion Gap 8 BUN 12 Creatinine 1.03 Estim Creat Clear Calc 87.62 Est GFR (MDRD) Af Amer 100 Est GFR (MDRD) Non-Af 83 BUN/Creatinine Ratio 11.7 Glucose 208 H Lactic Acid 4.0 H* Calcium 8.9 Total Bilirubin 0.70 AST 38 H ALT 65 H Alkaline Phosphatase 77 Total Protein 7.3 Albumin 3.0 L Globulin 4.3 H Albumin/Globulin Ratio 0.7 L Radiography Diagnostic Testing: Clinical Impression(s) from Imaging Studies Abdomen/Pelvis CT 03/16/22 09:53 IMPRESSION: Soft tissue hematoma overlying the lower right thorax and abdomen as described in keeping with history of trauma. Underlying nondisplaced rib fractures. Minimal right pleural effusion with right basilar atelectasis. Hepatomegaly and diffuse fatty infiltration of the liver. Left renal cyst. Electronically Signed: Jerry Ames MD at 11:15 EDT , Chest X-Ray 03/16/22 09:56 IMPRESSION: 1 tear of the right cusp and angle with mild increased markings at the right lung base. Electronically Signed: Jerry Ames MD at 11:16 EDT , 1 view chest x-ray obtained interpreted by myself as right lower rib fractures relatively nondisplaced. Radiology in agreement. Discharge Plan Triage Chief Complaint: Abd Pain ED Provider: April Martin Dx/Rx/DC Orders Clinical Impression: Right rib fracture, Hematoma Instructions: Rib Fracture (Broken Rib), ED Hematoma Prescriptions: New hydrocodone-acetaminophen [hydrocodone-acetaminophen] 1 TABLET tablet 1 tab PO Q4H PRN PRN (Reason: Pain) 3 Days Qty: 20 0RF No Action escitalopram oxalate 20 MG tablet 20 mg PO DAILY bupropion HCl 150 MG tablet extended release 24 hr 150 mg PO DAILY metoprolol tartrate 50 MG tablet 50 mg PO BID Qty: 60 0RF cyclobenzaprine 10 mg tablet 10 mg PO BID PRN (Reason: muscle spasm) Qty: 10 0RF Primary Care Provider: Roni Luke Referrals: Roni Luke MD [Primary Care Provider] - 5-7 Days Disposition Disposition: Home, Self Care
--- NOTE | 2022-03-16 09:56 | RAD_ITS ---
STUDY: X-RAY CHEST REASON FOR EXAM: Male, 46 years old. Cough TECHNIQUE: Single AP portable view of the chest. COMPARISON: Comparison is made with prior study dated 07/24/2021. FINDINGS: Stable elevation of the right hemidiaphragm. Minimal right basilar atelectasis. There is no demonstrated pleural abnormality. Normal size heart. Normal mediastinum and sammy. Normal visualized pulmonary arteries. Normal visualized aortic arch and descending thoracic aorta. Normal visualized thoracic spine. Healed right rib fractures. There is no demonstrated abnormality of the visualized soft tissue structures of the upper abdomen. RAD/Chest 1 View (Portable) IMPRESSION: 1 tear of the right cusp and angle with mild increased markings at the right lung base. Electronically Signed: Jerry Ames MD at 11:16 EDT ,
[2022-03-16 10:06] LABS: Hematocrit 35.7 % (40-54); Hemoglobin 11.8 g/dL (13.0-16.5); Mean Corp Hgb Conc 33.1 g/dL (32-36); Mean Corpuscular Volume 93.7 fL (80-94); Mean Platelet Vol. 11.1 fl (6.2-12.0); POSITIVE DIFFERENTIAL YES; Platelet Count 318 K/mm3 (150-450); RBC Distribution Width CV 12.8 % (11.6-14.6); RBC Distribution Width SD 43.2 fl (35.1-43.9); Red Blood Count 3.81 M/mm3 (4.6-6.2); White Blood Count 15.9 K/mm3 (4.4-11.0)
[2022-03-16 10:08] LABS: Differential Indicated MANUAL DIFF
[2022-03-16] MEDS: 0.9% Normal Saline 1,000 ML 125 ML IV (10:09)
[2022-03-16 10:20] LABS: ALB/GLOB Ratio 0.7 RATIO (0.9-2.4); AST(SGOT) 38 U/L (15-37); Alanine Aminotransfer ALT/SGPT 65 U/L (16-61); Alkaline Phosphatase 77 U/L (45-117); Anion Gap 8 (5-15); BUN 12 mg/dL (7-18); BUN/Creat Ratio 11.7 RATIO (10-20); Calcium,Total 8.9 mg/dL (8.5-10.1); Chloride 106 mmol/L (98-107); Creatinine, Serum 1.03 mg/dL (0.70-1.30); EST Glomerular Filtration Rate 83 mL/min (>60); Est Glom Filt Rate - Afr Amer 100 mL/min (>60); Estimated Creatinine Clearance 87.62 ml/min; Globulin 4.3 g/dL (2.2-4.2); Glucose 208 mg/dL (74-106); Potassium 4.2 mmol/L (3.5-5.1); Protein, Total 7.3 g/dL (6.4-8.2); Sodium Level 136 mmol/L (136-145)
[2022-03-16 11:04] VITALS: BP 149/81; PULSE 63; RESP 22; TEMP 36.5; O2SAT 96
[2022-03-16 11:11] LABS: Eosinophil 5 % (0-5); Lymphocyte 13 % (19-41); Metamyelocyte 1 % (0-1); Monocyte 12 % (0-10); Neutrophil-Segmented 69 % (47-70); Platelet Estimate ADEQUATE (ADEQ); Total Cells Counted 100 (MANUAL DIFF)
[2022-03-16 11:12] LABS: Ovalocyte RARE
[2022-03-16 11:13] LABS: Poikilocytosis RARE
[2022-03-16 14:01] LABS: Reflex Lactate? Y
[2022-03-17 09:29] LABS: Pathologist Review Reviewed
== END 2022-03-16 13:19 | disposition home or self-care (01) ==
PROVIDERS: Emergency Provider Emergency Medicine; PCP Family Medicine; Visit Provider Emergency Medicine
DX: S22.41XA Multiple fractures of ribs, right side, initial encounter for closed fracture (principal); S20.211A Contusion of right front wall of thorax, initial encounter; F17.210 Nicotine dependence, cigarettes, uncomplicated; X58.XXXA Exposure to other specified factors, initial encounter
CPT/HCPCS: 71045; 74177; 80053; 83605; 85025; 87811; 99283; J7030; Q9967; A4216

== ENCOUNTER 2022-04-01 20:58 | Inpatient (IN) | payer OTHER, SELFPAY ==
[2022-04-01 20:59] VITALS: BP 130/80; PULSE 80; RESP 32; TEMP 35.6; O2SAT 80; BMI 46.5
[2022-04-01 21:02] VITALS: BP 130/80; PULSE 80; RESP 28; TEMP 35.6; O2SAT 92
[2022-04-01 21:09] VITALS: O2SAT 93
--- NOTE | 2022-04-01 21:18 | EKG12_ITS ---
Test Reason : SOB Blood Pressure : / mmHG Vent. Rate : 070 BPM Atrial Rate : 070 BPM P-R Int : 142 ms QRS Dur : 078 ms QT Int : 408 ms P-R-T Axes : 016 030 045 degrees QTc Int : 440 ms Normal sinus rhythm Normal ECG Confirmed by JUICE EDWARDS, MADDY ([id number]), graphic editor MAURA TAYLOR ([id number]) on 04/05/2022 9:45:00 AM Referred By: Confirmed By:MADDY BOSE MD
--- NOTE | 2022-04-01 21:19 | EDS_ITS ---
HPI History of Present Illness Chief Complaint: Shortness of Breath Informant: patient and family Narrative Narrative: Presents worsening dyspnea today. Per family he got up off the couch and ran to the door short of breath. Patient noted more short of breath when laying down. He has been having cough for 3 weeks clear sputum. He was seen approximately 2 weeks ago significant cough causing rib fractures on CT. He has not followed up he took his hydrocodone last dose a week ago. States pain has not been as significant. However progressive dyspnea. Tobacco history denies asthma or COPD. History of hypertension. Denies any leg swelling. [facility] Medical History Depression Hypertension Home Medications escitalopram oxalate 20 mg tablet 20 mg PO DAILY 10/11/19 [History Last Taken Unknown] bupropion HCl 150 mg 24 hr tablet, extended release 150 mg PO DAILY 12/13/19 [History Last Taken Unknown] metoprolol tartrate 50 mg tablet 50 mg PO BID #60 tabs 12/13/19 [Rx Last Taken Unknown] Allergy/AdvReac Type Severity Reaction Status Date / Time shellfish derived Allergy Rash Verified 03/16/22 09:32 Family History (Updated 04/01/22 @ 23:[address] Pa Pollock MD) Other Colon cancer Social History Smoking Status: Light Smoker (<10/day) ROS ROS ED Constitutional Constitutional ED: Denies chills, fever(s) or sweats Eyes Eyes: Denies change in vision ENT ENT ED: Denies dysphagia or sore throat Cardiovascular Cardiovascular: Denies chest pain, leg edema, palpitations or racing heartbeat Respiratory/Chest Respiratory/Chest: Reports cough and dyspnea; Denies dyspnea on exertion Gastrointestinal Gastrointestinal: Denies abdominal pain, diarrhea, nausea or vomiting Genitourinary Genitourinary ED: Denies dysuria, hematuria or urinary frequency Musculoskeletal Musculoskeletal: Denies back pain, extremity pain or neck pain Integumentary Denies rash or wounds Neurologic Neurologic: Denies headache(s), paresthesias or weakness EXAM Physical Exam Const Vital Signs: 04/01/22 20:59 04/01/22 21:02 04/01/22 21:09 Temperature 96.0 F L 96.0 F L Temperature Source Temporal Temporal Pulse Rate 80 80 Pulse Strength Respiratory Rate 32 H 28 H Respiratory Effort Short of Breath Respiratory Depth Shallow Respiratory Pattern Normal Blood Pressure 130/80 H 130/80 H Blood Pressure Mean 96 96 Pulse Ox 80 92 Oxygen Delivery Method Room Air Room Air Nasal Cannula Oxygen Flow Rate (L/min) 2 04/01/22 22:02 Temperature Temperature Source Pulse Rate Pulse Strength Weak (1+) Respiratory Rate Respiratory Effort Respiratory Depth Respiratory Pattern Blood Pressure Blood Pressure Mean Pulse Ox Oxygen Delivery Method Oxygen Flow Rate (L/min) Positive well nourished and well developed Constitutional Narrative: 2 L nasal cannula speaking in short sentences. General Appearance ED: well developed HEENT Reports moist mucous membranes normocephalic and atraumatic Eyes PERRL, EOMs intact bilaterally and conjunctivae normal General Eye ED: Yes normal appearance of both eyes Neck no lymphadenopathy and supple General: Negative for tenderness Chest Wall Chest: Negative for tenderness Resp Resp Narrative: Blunting of breath sounds right middle lung down. Effort and Inspection: symmetric chest movement; Negative for respiratory distress Cardio regular rate, regular rhythm and no murmurs Peripheral Pulses: pulses 2+ throughout GI normal to inspection, nondistended, normoactive bowel sounds and non-tender Palpation: Negative for guarding or rebound tenderness present Back/Spine no CVA tenderness and no thoracic nor lumbar tenderness Extremity normal to inspection General Extremety ED: Negative for edema or tenderness General Extremity: Negative for edema Neuro oriented x3 and no sensory deficits noted Sensorium / Orientation: awake and alert Skin no rashes or lesions noted and no wounds MDM MDM MDM Narrative Medical decision making narrative: Patient blunting sounds hypoxic on arrival right lower chest. Improved with 2 L nasal cannula. EKG sinus rhythm. Labs were checked. Chest x-ray obtained and reviewed myself read by radiology right pleural effusion with atelectasis. Labs stable white count 12.2. Creatinine 0.8. BNP 54. He remained stable on 2 L of oxygen. With his hypoxia and pleural effusion discussed with hospitalist Dr. Pollock for admission for further management. Lab Data Attestation: I reviewed the patient's lab results. Labs: Laboratory Results - last 24 hr 04/01/22 04/01/22 04/01/22 21:31 21:31 21:31 WBC 12.2 H RBC 4.28 L Hgb 12.8 L Hct 39.7 L MCV 92.8 MCH 29.9 MCHC 32.2 RDW Std Deviation 43.9 RDW Coeff of Kassidy 13.1 Plt Count 633 H MPV 10.0 Immature Gran % (Auto) 0.700 Neut % (Auto) 57.8 Lymph % (Auto) 14.5 L Major % (Auto) 10.2 H Eos % (Auto) 14.8 H Baso % (Auto) 2.0 H Absolute Neuts (auto) 7.0 Absolute Lymphs (auto) 1.77 Nucleated RBC % 0 PT 14.2 INR 1.1 APTT 35.0 Sodium 137 Potassium 3.8 Chloride 105 Carbon Dioxide 24.0 Anion Gap 8 BUN 12 Creatinine 0.88 Estim Creat Clear Calc 106.01 Est GFR (MDRD) Af Amer 120 Est GFR (MDRD) Non-Af 99 BUN/Creatinine Ratio 13.6 Glucose 125 H Calcium 8.3 L B-Natriuretic Peptide 04/01/22 21:31 WBC RBC Hgb Hct MCV MCH MCHC RDW Std Deviation RDW Coeff of Kassidy Plt Count MPV Immature Gran % (Auto) Neut % (Auto) Lymph % (Auto) Major % (Auto) Eos % (Auto) Baso % (Auto) Absolute Neuts (auto) Absolute Lymphs (auto) Nucleated RBC % PT INR APTT Sodium Potassium Chloride Carbon Dioxide Anion Gap BUN Creatinine Estim Creat Clear Calc Est GFR (MDRD) Af Amer Est GFR (MDRD) Non-Af BUN/Creatinine Ratio Glucose Calcium B-Natriuretic Peptide 54.1 Radiography Diagnostic Testing: Clinical Impression(s) from Imaging Studies Chest X-Ray 04/01/22 21:50 IMPRESSION: Moderate right pleural effusion with right lower lobe atelectasis. Electronically Signed: Billy Faulkner MD at 22:05 EDT , Discharge Plan Dx/Rx/DC Orders Clinical Impression: Pleural effusion on right, Hypoxia, Dyspnea Disposition Disposition: Acute Care Hospital [facility] Discharge Date/Time: 04/01/22 23:54
[2022-04-01 21:47] LABS: Absolute Lymphocyte Count 1.77 X10^3/uL (0.83-4.51); Basophil# 0.24 X10^3/uL; Eosinophil# 1.81 X10^3/uL; Eosinophils% 14.8 % (0-5); Hematocrit 39.7 % (40-54); Hemoglobin 12.8 g/dL (13.0-16.5); Lymphocyte # 1.77 X10^3/ul (0.83-4.51); Lymphocyte % 14.5 % (19-41); Mean Corp Hgb Conc 32.2 g/dL (32-36); Mean Corpuscular Hgb 29.9 pg (27.0-32.0); Mean Corpuscular Volume 92.8 fL (80-94); Monocyte# 1.25 X10^3/uL; Monocyte% 10.2 % (0-10); NRBC Flagged by Analyzer 0 % (0-5); Neutrophil # 7.04 X10^3/uL (2.7-7.7); Neutrophil % 57.8 % (47-70); Platelet Count 633 K/mm3 (150-450); RBC Distribution Width CV 13.1 % (11.6-14.6); RBC Distribution Width SD 43.9 fl (35.1-43.9); Red Blood Count 4.28 M/mm3 (4.6-6.2); White Blood Count 12.2 K/mm3 (4.4-11.0)
--- NOTE | 2022-04-01 21:50 | RAD_ITS ---
STUDY: X-RAY CHEST REASON FOR EXAM: Male, 46 years old. sob TECHNIQUE: PA and lateral views of the chest. COMPARISON: 03/16/2022 FINDINGS: The lungs are clear and expanded. Moderate right pleural effusion with right lower lobe atelectasis. There is moderate cardiac enlargement. Normal mediastinum and sammy. Normal visualized pulmonary arteries. Normal visualized aortic arch and descending thoracic aorta. Normal visualized thoracic spine. Normal visualized ribs, clavicles, and shoulders. There is no demonstrated abnormality of the visualized soft tissue structures of the upper abdomen. RAD/Chest PA and Lateral IMPRESSION: Moderate right pleural effusion with right lower lobe atelectasis. Electronically Signed: Billy Faulkner MD at 22:05 EDT ,
[2022-04-01 21:51] LABS: International Normalized Ratio 1.1; Prothrombin Time (Protime)PT. 14.2 SECONDS (11.7-14.9)
[2022-04-01 21:53] LABS: Anion Gap 8 (5-15); BUN 12 mg/dL (7-18); BUN/Creat Ratio 13.6 RATIO (10-20); Calcium,Total 8.3 mg/dL (8.5-10.1); Chloride 105 mmol/L (98-107); Creatinine, Serum 0.88 mg/dL (0.70-1.30); EST Glomerular Filtration Rate 99 mL/min (>60); Est Glom Filt Rate - Afr Amer 120 mL/min (>60); Estimated Creatinine Clearance 106.01 ml/min; Glucose 125 mg/dL (74-106); Potassium 3.8 mmol/L (3.5-5.1); Sodium Level 137 mmol/L (136-145)
[2022-04-01 22:14] LABS: BNP,B-Type NATRIURETIC PEPTIDE 54.1 pg/mL (0-100)
--- NOTE | 2022-04-01 23:05 | HP.PCM.HOS_ITS ---
HPI - General General Date of Admission: 04/01/22 Date of Service: 04/01/22 Chief Complaint: Shortness of breath HPI Narrative ERASTO ALMANZAR, is a 46 M with a significant history of hypertension; obstructive sleep apnea on CPAP; depression; tobacco abuse and morbid obesity who presents to the emergency department with 7 to 10-day history of a fluctuating shortness of breath. His shortness of breath is with mild exertion. Associated with his symptoms is a productive cough of clear sputum; and fatigue. He denies fever or anorexia. Of note patient was at our hospital ED on 03/16/2022 for rib fractures secondary to coughing. At that time he had a hematoma. [facility] Medical History Depression Hypertension Home Medications escitalopram oxalate 20 mg tablet 20 mg PO DAILY 10/11/19 [History Last Taken Unknown] bupropion HCl 150 mg 24 hr tablet, extended release 150 mg PO DAILY 12/13/19 [History Last Taken Unknown] metoprolol tartrate 50 mg tablet 50 mg PO BID #60 tabs 12/13/19 [Rx Last Taken Unknown] Allergy/AdvReac Type Severity Reaction Status Date / Time shellfish derived Allergy Rash Verified 03/16/22 09:32 Family History Other Colon cancer Surgical History no surgical history no surgical history Social History Smoking Status: Light Smoker (<10/day) ROS ROS Narrative Pertinent positives and pertinent negatives as noted in HPI. All other systems were reviewed and are negative Vital Signs Vital Signs Vital Signs: 04/01/22 20:59 04/01/22 21:02 04/01/22 21:09 Temperature 96.0 F L 96.0 F L Temperature Source Temporal Temporal Pulse Rate 80 80 Respiratory Rate 32 H 28 H Respiratory Effort Short of Breath Respiratory Depth Shallow Respiratory Pattern Normal Blood Pressure 130/80 H 130/80 H Blood Pressure Mean 96 96 Pulse Ox 80 92 Oxygen Delivery Method Room Air Room Air Nasal Cannula Oxygen Flow Rate (L/min) 2 Weight Weight: 143 kg Body Mass Index (BMI) 46.5 Physical Exam Narrative Physical exam: General: Well-nourished, well-developed. Head: Normocephalic, atraumatic, no tenderness Eyes: Vision is grossly intact. EOMI ENT, no trauma, moist mucous membranes, no rhinorrhea Neck: Nontender, full range of motion, no spinal tenderness, deformities, step- off CVS: Regular rate and rhythm. S1-S2 present. No murmur, gallop or rub. Respiratory : Tachypnea; diminished. chest wall nontender, no wheezing Abdomen: Soft, nontender, nondistended, normal bowel sounds, no masses : Deferred Back: Nontender, no CVA tenderness, no midline spinal tenderness, deformities, step-offs Extremities: Nontender full range of motion, no trauma Skin: Normal color, no trauma, abrasions Neuro: Alert, oriented, cranial nerves II through XII grossly intact. Psychiatry: Normal mood. Normal affect. Not depressed. Not anxious. Results Lab / Micro Data Result Diagrams: 04/01/22 21:31 04/01/22 21:31 Labs: Laboratory Results - last 24 hr 04/01/22 21:31: WBC 12.2 H, RBC 4.28 L, Hgb 12.8 L, Hct 39.7 L, MCV 92.8, MCH 29.9, MCHC 32.2, RDW Std Deviation 43.9, RDW Coeff of Kassidy 13.1, Plt Count 633 H, MPV 10.0, Immature Gran % (Auto) 0.700, Neut % (Auto) 57.8, Lymph % (Auto) 14.5 L, [place] % (Auto) 10.2 H, Eos % (Auto) 14.8 H, Baso % (Auto) 2.0 H, Absolute Neuts (auto) 7.0, Absolute Lymphs (auto) 1.77, Nucleated RBC % 0 04/01/22 21:31: PT 14.2, INR 1.1, APTT 35.0 04/01/22 21:31: Sodium 137, Potassium 3.8, Chloride 105, Carbon Dioxide 24.0, Anion Gap 8, BUN 12, Creatinine 0.88, Estim Creat Clear Calc 106.01, Est GFR (MDRD) Af Amer 120, Est GFR (MDRD) Non-Af 99, BUN/Creatinine Ratio 13.6, Glucose 125 H, Calcium 8.3 L 04/01/22 21:31: B-Natriuretic Peptide 54.1 Micro: Microbiology 04/01/22 21:31 Nasal Secretion SARS-CoV-2 Antigen (Rapid) - Final Radiology Impression Chest X-Ray 04/01/22 21:50 IMPRESSION: Moderate right pleural effusion with right lower lobe atelectasis. Electronically Signed: Billy Faulkner MD at 22:05 EDT , Assessment & Plan Assessment/Plan (1) Pleural effusion: (2) Hypoxia: (3) Morbid (severe) obesity due to excess calories: PLAN: Plan Pleural effusion with hypoxia Chest x-ray image was visualized and independently interpreted. I agree with radiologist interpretation of Moderate right pleural effusion with right lower lobe atelectasis. Abdomen/pelvis CT on 03/16/2022 showed hematoma and nondisplaced right lower rib fractures as well as minimal right pleural effusion with right basilar atelectasis. Thoracentesis with fluid studies ordered. Nasal cannula oxygen placed at the emergency department and continued. Titrate oxygen as necessary. Leukocytosis White count 12.2. Likely reactive. Trend CBC. Thrombocytosis Platelet count of 633. Likely reactive. Trend. Hypertension Blood pressure is not within goal Metoprolol continued. Trend blood pressure and adjust blood pressure medications. Depression Stable Bupropion continued. Morbid Obesity : BMI: 46.5kg/m?. Complicates care. Lifestyle modification recommended. DVT prophylaxis SCD Charges/Coding Visit Charges Inpatient E&M: 33918 Init Hosp L3
[2022-04-01 23:39] VITALS: BP 130/80; PULSE 80; RESP 28; TEMP 35.6; O2SAT 92
[2022-04-02] VITALS (19 sets, daily range): BP systolic 119–140; BP diastolic 64–81; PULSE 65–88; RESP 16–26; TEMP 35.9–36.5; O2SAT 94–96; BMI 46.5
[2022-04-02 06:49] LABS: Absolute Lymphocyte Count 1.85 X10^3/uL (0.83-4.51); Absolute Neutrophil Count 5.5 X10^3/uL (2.0-7.7); Basophil# 0.24 X10^3/uL; Basophil% 2.2 % (0-1); Eosinophil# 1.88 X10^3/uL; Eosinophils% 17.2 % (0-5); Hematocrit 40.4 % (40-54); Hemoglobin 13.2 g/dL (13.0-16.5); Lymphocyte # 1.85 X10^3/ul (0.83-4.51); Mean Corp Hgb Conc 32.7 g/dL (32-36); Mean Corpuscular Hgb 30.1 pg (27.0-32.0); Mean Corpuscular Volume 92.2 fL (80-94); Mean Platelet Vol. 10.1 fl (6.2-12.0); Monocyte# 1.34 X10^3/uL; Monocyte% 12.3 % (0-10); NRBC Flagged by Analyzer 0 % (0-5); Neutrophil # 5.53 X10^3/uL (2.7-7.7); Neutrophil % 50.7 % (47-70); Platelet Count 598 K/mm3 (150-450); RBC Distribution Width SD 43.7 fl (35.1-43.9); Red Blood Count 4.38 M/mm3 (4.6-6.2); White Blood Count 10.9 K/mm3 (4.4-11.0)
[2022-04-02 07:24] LABS: ALB/GLOB Ratio 0.6 RATIO (0.9-2.4); Anion Gap 7 (5-15); BUN 13 mg/dL (7-18); BUN/Creat Ratio 13.1 RATIO (10-20); Calcium,Total 8.9 mg/dL (8.5-10.1); Chloride 104 mmol/L (98-107); Creatinine, Serum 0.99 mg/dL (0.70-1.30); EST Glomerular Filtration Rate 86 mL/min (>60); Est Glom Filt Rate - Afr Amer 105 mL/min (>60); Estimated Creatinine Clearance 94.23 ml/min; Glucose 122 mg/dL (74-106); Potassium 3.9 mmol/L (3.5-5.1); Protein, Total 8.1 g/dL (6.4-8.2); Sodium Level 137 mmol/L (136-145)
--- NOTE | 2022-04-02 10:05 | CASEMGMT ---
NAHED SMITH assessment: Face to Face with patient for initial transition planning/care coordination assessment. RN LUIS introduced self and role at [facility], pt voices understanding and consents to assessment. Pt is lying in bed on cpap and friend, Nancy Priest, is at bedside and answers most questions for pt. Pt is A/Ox4.? Care providers, pharmacy,?and demographics verified. ? Presentation: Pt seen 2 weeks ago for fractured ribs and now c/o cough, increased SOB Admitting dx: Pleural effusion w/ hypoxia [facility] Specialists: None Preferred [facility]acy: [facility] Insurance: [employer] Prescription Benefit:?[facility] Living Will/HPOA: Pt does not have LW/HPOA and declines AD info. LNOK: Pretty Chapman, mother; Nancy Priest, friend Living Arrangements: Pt lives alone in 1 story home and states no concerns at home. Pt is independent with ADL's. Transportation: Pt drives self and states no transportation concerns. DME/HHC: Pt has a cpap at home thru [employer]. Pt states no need for any further DME. Pt states no hx of HHC or SNF. Pt states no concerns with going home at time of discharge. Pt work daytime babysitter. Pt smokes 1/2 pack cigarettes daily and occasionally drinks ETOH. Pt states no further concerns/needs. CM to follow for any further discharge planning/needs. Advised pt to ask for CM if any further questions/concerns/needs arise, voices understanding. Pt Goal: Home ? Plan: [place] NAHED SMITH
[2022-04-02] MEDS: buPROPion (XL) 150 MG TABLET.XL PO (10:48)
[2022-04-02] MEDS: Escitalopram Oxalate 20 MG Tablet PO (10:48)
[2022-04-02] MEDS: Metoprolol Tartrate 50 MG Tablet PO ×2 (10:48→21:52)
--- NOTE | 2022-04-02 12:01 | PN.HOSP_ITS ---
Subjective Subjective Patient seen and examined. He had no active complaints today and had an uneventful night. He is still coughing, but denies any fever, chills, chest pain, nausea, vomiting or diarrhea. Review of systems is otherwise negative. Objective Data Objective Data Vital Signs: Vital Signs Temp Pulse Resp BP Pulse Ox O2 Del Method O2 Flow Rate 96.6 F L 65 18 129/68 H 94 Nasal Cannula 2 04/02/22 10:31 04/02/22 10:48 04/02/22 10:31 04/02/22 10:48 04/02/22 10:31 04/02/22 10:32 04/02/22 10:32 FiO2 28 04/02/22 00:18 Oxygen Flow Rate (L/min) 2 Oxygen Delivery Method Nasal Cannula Weight: 314 lb 13.121 oz Body Mass Index (BMI) 46.5 Lab / Micro Data Result Diagrams: 04/02/22 05:22 04/02/22 05:22 Labs: Laboratory Results - last 24 hr 04/01/22 21:31: WBC 12.2 H, RBC 4.28 L, Hgb 12.8 L, Hct 39.7 L, MCV 92.8, MCH 29.9, MCHC 32.2, RDW Std Deviation 43.9, RDW Coeff of Kassidy 13.1, Plt Count 633 H, MPV 10.0, Immature Gran % (Auto) 0.700, Neut % (Auto) 57.8, Lymph % (Auto) 14.5 L, Kane % (Auto) 10.2 H, Eos % (Auto) 14.8 H, Baso % (Auto) 2.0 H, Absolute Neuts (auto) 7.0, Absolute Lymphs (auto) 1.77, Nucleated RBC % 0 04/01/22 21:31: PT 14.2, INR 1.1, APTT 35.0 04/01/22 21:31: Sodium 137, Potassium 3.8, Chloride 105, Carbon Dioxide 24.0, Anion Gap 8, BUN 12, Creatinine 0.88, Estim Creat Clear Calc 106.01, Est GFR (MDRD) Af Amer 120, Est GFR (MDRD) Non-Af 99, BUN/Creatinine Ratio 13.6, Glucose 125 H, Calcium 8.3 L 04/01/22 21:31: B-Natriuretic Peptide 54.1 04/02/22 05:22: Sodium 137, Potassium 3.9, Chloride 104, Carbon Dioxide 26.0, Anion Gap 7, BUN 13, Creatinine 0.99, Estim Creat Clear Calc 94.23, Est GFR (MDRD) Af Amer 105, Est GFR (MDRD) Non-Af 86, BUN/Creatinine Ratio 13.1, Glucose 122 H, Calcium 8.9, Total Protein 8.1, Globulin 5.0 H, Albumin/Globulin Ratio 0.6 L 04/02/22 05:22: WBC 10.9, RBC 4.38 L, Hgb 13.2, Hct 40.4, MCV 92.2, MCH 30.1, MCHC 32.7, RDW Std Deviation 43.7, RDW Coeff of Kassidy 13.0, Plt Count 598 H, MPV 10.1, Immature Gran % (Auto) 0.600, Neut % (Auto) 50.7, Lymph % (Auto) 17.0 L, Kane % (Auto) 12.3 H, Eos % (Auto) 17.2 H, Baso % (Auto) 2.2 H, Absolute Neuts (auto) 5.5, Absolute Lymphs (auto) 1.85, Nucleated RBC % 0 Micro: Microbiology 04/01/22 21:31 Nasal Secretion SARS-CoV-2 Antigen (Rapid) - Final Radiography Diagnostic Testing: Radiology Impression Chest X-Ray 04/01/22 21:50 IMPRESSION: Moderate right pleural effusion with right lower lobe atelectasis. Electronically Signed: Billy Faulkner MD at 22:05 EDT , Physical Exam Const alert, oriented x3 and no apparent distress Constitutional Narrative: obese HEENT head/scalp atraumatic, moist oral mucous membranes and oropharynx normal Head and Scalp: normocephalic Mouth: oral and palatal mucosa normal Eyes EOMs intact bilaterally and conjunctivae normal Neck no lymphadenopathy, supple and no JVD Resp Resp Narrative: mildly diminished breath sounds in the right mid and lower lung price, no wheezes or crackles. was on CPAP at time of review this morning. Cardio regular rate, regular rhythm, S1 normal heart sound and S2 normal heart sound GI normal to inspection, nondistended, normoactive bowel sounds, soft to palpation and non-tender Extremity normal to inspection, full ROM and no clubbing, cyanosis or edema Neuro oriented x3, CN's II-XII intact bilaterally, moves all extremities and no focal motor deficits Sensorium / Orientation: awake and alert Motor Exam: strength 5/5 throughout Psych affect normal Assessment & Plan Assessment/Plan (1) Pleural effusion on right: (2) Hypoxia: PLAN: Plan #HYpoxia due to right pleural effusion * CXR showed right pleural effusion * he has an associated cough and says he has been coughing excessively for a while now. * he also had mildly elevated wbc on admission * etiology of pleural effusion is unclear. BNP wasnt elevated * I do think it is prudent to cover patient with antibiotics to cover for presumptive parapneumonic effusion * thoracentesis ordered; wont be done till Monday * titrate oxygen to maintain sats >90% * breathing treatment with bronchodilators * COVID test was negative * #Hypertension: well controlled. on metoprolol and lisinopril. IV hydralazine prn. #Nondisplaced right lower rib fractures * imaging from 03/16/2022 showed nondisplaced right lower rib fractures * he said he had excessive coughing which resulted in a pop in his right upper quadrant and flank. * right lower thorax soft tissue hematoma and upper abdominal wall hematoma * on pain meds * #DEpression; stable. On escitalopram and bupropion DVT prophylaxis; lovenox Charges/Coding Visit Charges Inpatient E&M: 35305 Subs Hosp L2
[2022-04-02] MEDS: Ceftriaxone 1 GM/50 ML BAG IV (15:08)
--- NOTE | 2022-04-02 18:40 | NURSING ---
Charting reviewed with Giana Montgomery RN
[2022-04-03] VITALS (17 sets, daily range): BP systolic 104–144; BP diastolic 64–87; PULSE 56–76; RESP 16–18; TEMP 36.1–37; O2SAT 94–99
[2022-04-03 08:33] LABS: Absolute Lymphocyte Count 1.69 X10^3/uL (0.83-4.51); Absolute Neutrophil Count 4.3 X10^3/uL (2.0-7.7); Basophil% 2.2 % (0-1); Eosinophil# 1.81 X10^3/uL; Eosinophils% 20.2 % (0-5); Hematocrit 41.2 % (40-54); Hemoglobin 13.2 g/dL (13.0-16.5); Lymphocyte # 1.69 X10^3/ul (0.83-4.51); Lymphocyte % 18.8 % (19-41); Mean Corpuscular Hgb 29.7 pg (27.0-32.0); Mean Corpuscular Volume 92.6 fL (80-94); Mean Platelet Vol. 9.6 fl (6.2-12.0); Monocyte# 0.93 X10^3/uL; Monocyte% 10.4 % (0-10); NRBC Flagged by Analyzer 0 % (0-5); Neutrophil % 47.8 % (47-70); Platelet Count 560 K/mm3 (150-450); RBC Distribution Width CV 13.1 % (11.6-14.6); RBC Distribution Width SD 44.3 fl (35.1-43.9); Red Blood Count 4.45 M/mm3 (4.6-6.2)
[2022-04-03 08:44] LABS: Anion Gap 4 (5-15); BUN 13 mg/dL (7-18); BUN/Creat Ratio 14.3 RATIO (10-20); Calcium,Total 8.5 mg/dL (8.5-10.1); Chloride 105 mmol/L (98-107); Creatinine, Serum 0.91 mg/dL (0.70-1.30); EST Glomerular Filtration Rate 96 mL/min (>60); Est Glom Filt Rate - Afr Amer 116 mL/min (>60); Estimated Creatinine Clearance 102.51 ml/min; Glucose 139 mg/dL (74-106); Potassium 4.2 mmol/L (3.5-5.1); Sodium Level 138 mmol/L (136-145)
[2022-04-03 09:14] LABS: LDL, Direct 120295 109 mg/dL (0-99)
[2022-04-03] MEDS: Ceftriaxone 1 GM/50 ML BAG IV (10:09)
[2022-04-03] MEDS: Escitalopram Oxalate 20 MG Tablet PO (10:09)
[2022-04-03] MEDS: buPROPion (XL) 150 MG TABLET.XL PO (10:09)
[2022-04-03] MEDS: 0.9% Saline Lock 10 ML Syringe IV (10:09)
[2022-04-03] MEDS: Metoprolol Tartrate 50 MG Tablet PO ×2 (10:09→22:17)
--- NOTE | 2022-04-03 11:14 | PN.HOSP_ITS ---
Subjective Subjective Patient seen and examined. He had no active complaints. His breathing is improving. Review of systems is otherwise negative. Objective Data Objective Data Vital Signs: Vital Signs Temp Pulse Resp BP Pulse Ox O2 Del Method O2 Flow Rate 97.5 F L 70 16 141/87 H 94 Nasal Cannula 2 04/03/22 09:50 04/03/22 10:09 04/03/22 09:50 04/03/22 10:09 04/03/22 09:50 04/03/22 09:50 04/03/22 09:50 FiO2 28 04/03/22 06:00 Oxygen Flow Rate (L/min) 2 Oxygen Delivery Method Nasal Cannula Weight: 314 lb 13.121 oz Body Mass Index (BMI) 46.5 Intake & Output: Intake and Output for Last 24 Hours 04/01/22 04/02/22 04/03/22 23:59 23:59 23:59 Intake Total 1505 / 2330 1225 / 1225 Balance 1505 / 2330 1225 / 1225 Lab / Micro Data Result Diagrams: 04/03/22 08:25 04/03/22 08:25 Labs: Laboratory Results - last 24 hr 04/02/22 05:22: LDL Cholesterol Direct 109 H, LDL Choles Direct Cmmnt TNP 04/03/22 08:25: WBC 9.0, RBC 4.45 L, Hgb 13.2, Hct 41.2, MCV 92.6, MCH 29.7, MCHC 32.0, RDW Std Deviation 44.3 H, RDW Coeff of Kassidy 13.1, Plt Count 560 H, MPV 9.6, Immature Gran % (Auto) 0.600, Neut % (Auto) 47.8, Lymph % (Auto) 18.8 L, [place] % (Auto) 10.4 H, Eos % (Auto) 20.2 H, Baso % (Auto) 2.2 H, Absolute Neuts (auto) 4.3, Absolute Lymphs (auto) 1.69, Nucleated RBC % 0 04/03/22 08:25: Sodium 138, Potassium 4.2, Chloride 105, Carbon Dioxide 29.0, Anion Gap 4 L, BUN 13, Creatinine 0.91, Estim Creat Clear Calc 102.51, Est GFR (MDRD) Af Amer 116, Est GFR (MDRD) Non-Af 96, BUN/Creatinine Ratio 14.3, Glucose 139 H, Calcium 8.5 Micro: Microbiology 04/01/22 21:31 Nasal Secretion SARS-CoV-2 Antigen (Rapid) - Final Physical Exam Const alert, oriented x3 and no apparent distress Constitutional Narrative: obese HEENT head/scalp atraumatic, moist oral mucous membranes and oropharynx normal Head and Scalp: normocephalic Mouth: oral and palatal mucosa normal Eyes PERRL, EOMs intact bilaterally and conjunctivae normal Neck no lymphadenopathy, supple and no JVD Resp Resp Narrative: diminished breath sounds bibasally, no wheezes or crackles. On 2L of oxygen. Cardio regular rate, regular rhythm, S1 normal heart sound and S2 normal heart sound GI normal to inspection, nondistended, normoactive bowel sounds, soft to palpation and non-tender Extremity normal to inspection, full ROM and no clubbing, cyanosis or edema Neuro oriented x3, CN's II-XII intact bilaterally, moves all extremities and no focal motor deficits Sensorium / Orientation: awake and alert Motor Exam: strength 5/5 throughout Psych affect normal Assessment & Plan Assessment/Plan (1) Pleural effusion on right: (2) Hypoxia: PLAN: Plan #HYpoxia due to right pleural effusion * CXR showed right pleural effusion * he has an associated cough and says he has been coughing excessively for a while now. * he also had mildly elevated wbc on admission * etiology of pleural effusion is unclear. BNP wasnt elevated * on IV ceftriaxone and azithromycin to cover for parapneumonic effusion * thoracentesis ordered; wont be done till Monday * titrate oxygen to maintain sats >90% * breathing treatment with bronchodilators * COVID test was negative * #Hypertension: well controlled. on metoprolol and lisinopril. IV hydralazine p rn. #Nondisplaced right lower rib fractures * imaging from 03/16/2022 showed nondisplaced right lower rib fractures * he said he had excessive coughing which resulted in a pop in his right upper quadrant and flank. * right lower thorax soft tissue hematoma and upper abdominal wall hematoma * on pain meds * #DEpression; stable. On escitalopram and bupropion DVT prophylaxis; lovenox Charges/Coding Visit Charges Inpatient E&M: 81517 Subs Hosp L2
[2022-04-03] MEDS: Lisinopril 20 MG Tablet PO (16:51)
[2022-04-03] MEDS: guaiFENesin 1,200 MG Tablet 1200 MG PO ×2 (16:51→22:17)
--- NOTE | 2022-04-03 18:24 | NURSING ---
Charting reviewed with Giana Montgomery RN
[2022-04-04] VITALS (19 sets, daily range): BP systolic 103–140; BP diastolic 37–85; PULSE 57–84; RESP 16–24; TEMP 35.7–37; O2SAT 90–98
--- NOTE | 2022-04-04 | FLU_PTH ---
PATIENT: ERASTO ALMANZAR LOC: [facility] U#:[id number] AGE/SX: 46/M ROOM: [facility] RE04/01/[address]: Dr. Roni Casanova DO : 1975 BED: 1 DIS: 04/04/2022 SPEC #: [id number] RECD: 04/04/22 09:00 STATUS: ANTHONY LURDES #: [id number] NIHARIKA: 04/04/22 00:[address]: Roni Casanova DEPT: CYTOLOGY RECD BY: Saeid Collier ENTERED: 04/05/22 09:00 SP TYPE: Fluid OTHR DR: MD Dr. Roni Marmolejo MD Dr. Nana Yaa Koram, MD Tissues: THORACIC FLUID Procedures: Special Stain Group II Surgery Specimen Level IV Cytospin Fluid HEADER OPERATION: Thoracentesis right PRE-OP DIAGNOSIS: Pleural effusion TISSUE SUBMITTED: Thoracentesis fluid for cytology DIAGNOSIS CYTOLOGY Thoracentesis fluid for cytology (cytospin and cell block): Negative for malignant cells. AM:sanya 04/06/2022 CYTOLOGY STUDY Slides are reviewed. CYTOLOGY GROSS Received is 100 ml of dark red cloudy fluid labeled with the patient's name and and designated per the requisition as thoracentesis. Submitted for cytology preparation including cell block. / sanya 04/05/2022 TC:5 CPT: 54629, 41556
--- NOTE | 2022-04-04 05:00 | US_ITS ---
PROCEDURE: ULTRASOUND GUIDED THORACENTESIS. DATE: 04/02/2022. INDICATION: Male, 46 years old. Right pleural effusion. PHYSICIAN: Jerry Ames M.D. PROCEDURE: The risks, benefits, and alternatives to the procedure were explained to the patient. The specific risks of bleeding, infection, and pneumothorax requiring chest tube insertion were discussed and accepted. Written informed consent was obtained. Ultrasonographic evaluation of the right lower pleural space was carried out. An adequate pocket was identified. The patient was placed in the sitting, upright position. The overlying skin was prepped and draped in sterile fashion. 1% lidocaine was administered subcutaneously for local anesthesia. Under ultrasound guidance, a 5 Estonian thoracentesis needle/catheter system was advanced into the right posterior lower pleural fluid collection. Approximately 1850 mL of bloody fluid was drained. The catheter was removed, and a sterile dressing was applied. A specimen was collected and sent to the laboratory for analysis, as requested by the referring clinician. The patient tolerated the procedure well. A chest x-ray was ordered. US/Thoracentesis W US IMPRESSION: Ultrasound-guided right thoracentesis. Electronically Signed: Jerry Ames MD at 14:00 EDT ,
[2022-04-04 07:20] LABS: Absolute Lymphocyte Count 1.94 X10^3/uL (0.83-4.51); Absolute Neutrophil Count 5.3 X10^3/uL (2.0-7.7); Eosinophil# 1.71 X10^3/uL; Eosinophils% 16.7 % (0-5); Hematocrit 38.9 % (40-54); Hemoglobin 12.7 g/dL (13.0-16.5); Lymphocyte # 1.94 X10^3/ul (0.83-4.51); Mean Corp Hgb Conc 32.6 g/dL (32-36); Mean Corpuscular Hgb 30.5 pg (27.0-32.0); Mean Corpuscular Volume 93.3 fL (80-94); Mean Platelet Vol. 10.1 fl (6.2-12.0); Monocyte# 1.01 X10^3/uL; Monocyte% 9.9 % (0-10); NRBC Flagged by Analyzer 0 % (0-5); Neutrophil # 5.29 X10^3/uL (2.7-7.7); Neutrophil % 51.8 % (47-70); Platelet Count 591 K/mm3 (150-450); RBC Distribution Width SD 44.5 fl (35.1-43.9); Red Blood Count 4.17 M/mm3 (4.6-6.2); White Blood Count 10.2 K/mm3 (4.4-11.0)
[2022-04-04 07:25] LABS: Anion Gap 5 (5-15); BUN 10 mg/dL (7-18); BUN/Creat Ratio 11.4 RATIO (10-20); Calcium,Total 8.5 mg/dL (8.5-10.1); Chloride 103 mmol/L (98-107); Creatinine, Serum 0.88 mg/dL (0.70-1.30); EST Glomerular Filtration Rate 100 mL/min (>60); Est Glom Filt Rate - Afr Amer 121 mL/min (>60); Estimated Creatinine Clearance 106.01 ml/min; Glucose 126 mg/dL (74-106); Sodium Level 136 mmol/L (136-145)
[2022-04-04] MEDS: buPROPion (XL) 150 MG TABLET.XL PO (09:37)
[2022-04-04] MEDS: Escitalopram Oxalate 20 MG Tablet PO (09:37)
[2022-04-04] MEDS: Lisinopril 20 MG Tablet PO (09:37)
[2022-04-04] MEDS: Metoprolol Tartrate 50 MG Tablet PO (09:37)
[2022-04-04] MEDS: guaiFENesin 1,200 MG Tablet 1200 MG PO (09:38)
[2022-04-04] MEDS: Ceftriaxone 1 GM/50 ML BAG IV (09:39)
[2022-04-04] MEDS: Lidocaine 2% (20 ml mdv) 20 ML Vial INFILT (13:35)
--- NOTE | 2022-04-04 13:45 | RAD_ITS ---
STUDY: X-RAY CHEST REASON FOR EXAM: Male, 46 years old. Post thoracentesis TECHNIQUE: AP inspiration and expiration views. COMPARISON: Comparison is made with prior study 04/01/2022. FINDINGS: EKG electrodes are seen the patient is status post right thoracentesis. Minimal residual atelectasis and blunting of the right costo phrenic angle is seen at this time. No evidence of pneumothorax. There is evidence of a subacute right rib fractures. RAD/Chest Insp/Exp 2 View IMPRESSION: Status post right thoracentesis. No evidence of pneumothorax. Electronically Signed: Jerry Ames MD at 13:59 EDT ,
[2022-04-04 14:20] LABS: Body Fluid Mononuclear WBC # 2.933 10^3/uL; Body Fluid Mononuclear WBC % 54.1 %; Body Fluid Polynuclear WBC # 2.485 10^3/uL; Body Fluid Polynuclear WBC % 45.9 %; Red Cell Count/Body Fluid 0.158 10^6/ul; White Blood Count/Body Fluid 5.418 10^3/uL
[2022-04-04 14:27] LABS: Auto B Fluid Analyzer BKGD Ct COUNTS W/IN LIMITS (W/IN LIMITS); Color/Body Fluid RED; Source- Body Fluid PLEURAL FLUID
[2022-04-04 14:28] LABS: Appearance/Body Fluid CLOUDY
[2022-04-04 15:06] LABS: Glucose, Body Fluid 109 mg/dL (40-70); LDH,Body Fluid 809 Units/l (Not Establ.); Lymphocytes 38 %; Monocytes 16 %
[2022-04-04 15:07] LABS: Body Fluid QC Type(s) BF1Q; Neutrophil (Segs) 46 %
--- NOTE | 2022-04-04 15:16 | CHAPLAIN ---
Type of Pastoral Visit _x__ Initial Visit ___ Follow-up Visit ___ On-call Visit ___ General Patient Visit ___ Spiritual Assessment ___ Family Conference ___ Bereavement ___ Rapid Response ___ Code Blue ___ Other (describe below) Pastoral Care Referral From _x__ Patient ___ Family ___ Nurse ___ Physician ___ Director Of Customer Service ___ Ux Researcher ___ Other (describe below) Sacrament/Intervention _x__ Active listening ___ Anointing ___ Cheondoism ___ Bereavement ___ Communion ___ Sola exploration ___ ___ Life review _x__ Prayer ___ Reconciliation ___ Sacrament of Sick _x__ Supportive presence ___ Wedding ___ Other (describe below) Pastoral Comments patient just returned to room from a procedure; pt describes his health issues and admission from ED; SO is with patient; pt requests prayer but is not involved in any jainism organization;
[2022-04-04 15:21] LABS: Protein, Body Fluid 5.2 g/dL (Not Establ.)
--- NOTE | 2022-04-04 16:18 | PCM.DC.SUM ---
Providers Date of Admission: 04/01/22 Date of Discharge: 04/04/22 Primary Care Physician: Dr. Roni Luke MD Reason For Visit: PLEURAL EFFUSION WITH HYPOXIA Diagnosis Discharge Diagnosis (1) Pleural effusion on right: Status: Resolved Code(s): J90 - Pleural effusion, not elsewhere classified (2) Hypoxia: Status: Resolved Code(s): R09.02 - Hypoxemia Plan #1 Right bloody pleural effusion secondary to subacute rib fractures #2 Hypoxia secondary to right pleural effusion #3 essential hypertension #4 chronic depression #5 multiple subacute right lower rib fractures-etiology unclear #6 morbid obesity Medications at Discharge Home Medications escitalopram oxalate 20 mg tablet 20 mg PO DAILY 10/11/19 bupropion HCl 150 mg 24 hr tablet, extended release 150 mg PO DAILY 12/13/19 metoprolol tartrate 50 mg tablet 50 mg PO BID #60 tabs 12/13/19 lisinopril 20 mg PO/SL DAILY blood pressure 04/02/22 Hospital Course Operations None Procedures Thoracentesis Summary of Care Provided Minutes Spent on Discharge: 31 Hospital Course: This 46-year-old white male was seen in the emergency room at [facility] with complaints of shortness of breath which had become worse over the last 24 hours. Patient was seen in the emergency room approximately 2 weeks prior with complaints of right-sided chest pain after coughing, he had noticed ecchymosis and bruising to his upper abdomen and came in for evaluationand was diagnosed as having a soft tissue hematoma overlying the right lower thorax and abdomen on an abdomen and pelvis CT, again nondisplaced rib fractures were noted to be present, patient had been given pain medication and instructed to follow-up with his PCP which he had not done yet. Patient had been seen also in June of this year and rib fractures on the right fifth, sixth, and seventh ribs were noted on that examination-patient stated that he coughed and had onset of severe rib pain, he returned to the emergency room in July of this year with complaints of right-sided chest pain, no new rib fractures were noted at that time. Work-up in the emergency room revealed the patient be hypoxic and he required supplemental nasal cannula oxygen in the low flow rate, chest x-ray was obtained and it showed a right pleural effusion with atelectasis, his white blood cell count was elevated at 12.2. Patient was admitted to PCU, he was given IV antibiotics due to concerns of a parapneumonic effusion, thoracentesis was performed however and it showed a grossly bloody pleural effusion of approximately 1850 cc. This examiner felt that the patient did not have pneumonia and that the bloody pleural effusion was due to rib fractures which occurred again earlier this month. On 04/04/2022, patient was seen and examined: On examination he appeared in good health and spirits, patient is morbidly obese. Vital signs as documented. Skin warm and dry and without overt rashes. Neck without JVD, neck was supple, trachea midline, thyroid was normal. Lungs clear bilaterally, normal air movement was noted. Heart exam notable for regular rhythm, normal sounds and absence of murmurs, rubs or gallops. Abdomen unremarkable and without evidence of organomegaly, masses, or abdominal aortic enlargement. Bowel sounds are present, abdomen is not distended. Extremities nonedematous, no cyanosis was noted, no clubbing was noted. Neuro: Cranial nerves II through XII are grossly intact, no focal motor deficits were noted, sensation to light touch and pinprick intact, motor exam 5/5 throughout. Psych: Patient is alert and oriented x3, he does not appear anxious or depressed, he does not appear agitated. Patient appears stable for discharge on 04/04/2022, he was instructed to follow-up with pulmonary medicine as well as his PCP regarding his rib fractures, I discussed the need for possible further work-up regarding the etiology of the rib fractures with the patient. Patient appeared to understand it was important to follow-up with his PCP and quarantine inspector regarding further work-up. Weight / BMI Weight Weight: 142.8 kg Body Mass Index (BMI) 46.5 ABG / Lab / Microbiology Data Result Diagrams: 04/04/22 05:58 04/04/22 05:58 Microbiology: Microbiology 04/01/22 21:31 Nasal Secretion SARS-CoV-2 Antigen (Rapid) - Final D/C Instructions Discharge Diet: No restrictions Return to work on: 04/08/22 Weight Bearing Status: Full weight bearing Meaningful Use Info Meaningful Use Diagnoses (Choose all that apply): None applicable Discharge Plan Admission Admit Date/Time: 04/01/22 22:56 Primary Reason for Your Visit: right pleural effusion, hypoxia Attending Provider: Roni Casanova Primary Care Provider: Roni Luke Consulting Providers: Pa Pollock ; Ani Villalba Instructions Patient Instructions: GABRIEL RN Thoracentesis Dc Discharge Orders/Prescriptions Prescriptions: Continued escitalopram oxalate 20 MG tablet 20 mg PO DAILY bupropion HCl 150 MG tablet extended release 24 hr 150 mg PO DAILY metoprolol tartrate 50 MG tablet 50 mg PO BID Qty: 60 0RF lisinopril 20 mg tablet 20 mg PO/SL DAILY Referrals / Follow Up: Ammon Liz MD [Med Staff - Active Staff] - See Referral Note (call office to be seen in 3-4 weeks, mention you were hospitalized for a pleural effusion and your hospital physician (Dr. Casanova) talked personally with Dr. Liz about your case) Roni Luke MD [Primary Care Provider] - Within 2 Weeks (you will need a repeat chest x-ray performed) Disposition Disposition (needs filled in before D/C Order can be placed): Home, Self Care Charges/Coding Visit Charges Inpatient E&M: 95726 Disch Hosp
--- NOTE | 2022-04-04 17:13 | DCINST_ITS ---
Discharge Instructions Diet Discharge Diet: No restrictions Activity Discharge Activity: Return to Normal Activity Return to work on:: 04/08/22 Weight Bearing Status: Full weight bearing Follow Up Care Test Results: Test results from this visit will be discussed in further detail at your follow- up appointment, if applicable. Discharge Plan Admission Admit Date/Time: 04/01/22 22:56 Primary Reason for Your Visit: right pleural effusion, hypoxia Attending Provider: Roni Casanova Primary Care Provider: Roni Luke Consulting Providers: Pa Pollock ; Ani Villalba Instructions Patient Instructions: GABRIEL RN Thoracentesis Dc Discharge Orders/Prescriptions Prescriptions: Continued escitalopram oxalate 20 MG tablet 20 mg PO DAILY bupropion HCl 150 MG tablet extended release 24 hr 150 mg PO DAILY metoprolol tartrate 50 MG tablet 50 mg PO BID Qty: 60 0RF lisinopril 20 mg tablet 20 mg PO/SL DAILY Referrals / Follow Up: Ammon Liz MD [Med Staff - Active Staff] - See Referral Note (call office to be seen in 3-4 weeks, mention you were hospitalized for a pleural effusion and your hospital physician (Dr. Casanova) talked personally with Dr. Liz about your case) Roni Luke MD [Primary Care Provider] - Within 2 Weeks (you will need a repeat chest x-ray performed) Disposition Disposition (needs filled in before D/C Order can be placed): Home, Self Care
[2022-04-04 17:22] LABS: LDH 329 U/L (87-241)
[2022-04-05 15:10] LABS: Pathologist Comment/Body Fluid Reviewed
== END 2022-04-04 17:39 | disposition home or self-care (01) | DRG 187 ==
LOC: ED 21:21 → PCU 04-02 03:28
PROVIDERS: Student in an Organized Health Care Education/Training Program; Admitting Provider Hospitalist; Emergency Provider Emergency Medicine; PCP Family Medicine; Visit Provider Internal Medicine
DX: J90 Pleural effusion, not elsewhere classified (principal); Z68.42 Body mass index [BMI] 45.0-49.9, adult; E66.01 Morbid (severe) obesity due to excess calories; F17.200 Nicotine dependence, unspecified, uncomplicated; I10 Essential (primary) hypertension; S20.20XA Contusion of thorax, unspecified, initial encounter; G47.33 Obstructive sleep apnea (adult) (pediatric); S22.41XD Multiple fractures of ribs, right side, subsequent encounter for fracture with routine healing; Z20.822 Contact with and (suspected) exposure to COVID-19; R09.02 Hypoxemia; F32.A Depression, unspecified; Z79.899 Other long term (current) drug therapy; Z87.891 Personal history of nicotine dependence
CPT/HCPCS: 32555; 36415; 71046; 80048; 82945; 83615; 83721; 83880; 84156; 84157; 85025; 85610; 85730; 87811; 88108; 88305; 88313; 89050; 93005; 94002; 94660; 94762; 97802; 99285; 99406; A4216

== ENCOUNTER 2022-05-17 16:50 | Emergency (ER) | payer OTHER, SELFPAY ==
[2022-05-17 16:52] VITALS: BP 125/69; PULSE 96; RESP 16; TEMP 36.2; O2SAT 96; BMI 44.3
[2022-05-17 18:00] LABS: Bedside Glucose > 500 mg/dL (74-106)
[2022-05-17] MEDS: 0.9% Normal Saline 1,000 ML 999 ML IV (18:12)
[2022-05-17 18:18] LABS: Absolute Lymphocyte Count 2.17 X10^3/uL (0.83-4.51); Basophil# 0.11 X10^3/uL; Basophil% 0.9 % (0-1); Eosinophil# 0.05 X10^3/uL; Eosinophils% 0.4 % (0-5); Hematocrit 47.1 % (40-54); Hemoglobin 16.7 g/dL (13.0-16.5); Lymphocyte # 2.17 X10^3/ul (0.83-4.51); Lymphocyte % 17.4 % (19-41); Mean Corp Hgb Conc 35.5 g/dL (32-36); Mean Corpuscular Hgb 29.7 pg (27.0-32.0); Mean Corpuscular Volume 83.8 fL (80-94); Mean Platelet Vol. 11.2 fl (6.2-12.0); Monocyte# 1.11 X10^3/uL; Monocyte% 8.9 % (0-10); NRBC Flagged by Analyzer 0 % (0-5); Platelet Count 331 K/mm3 (150-450); RBC Distribution Width CV 12.4 % (11.6-14.6); RBC Distribution Width SD 37.7 fl (35.1-43.9); Red Blood Count 5.62 M/mm3 (4.6-6.2); White Blood Count 12.5 K/mm3 (4.4-11.0)
[2022-05-17 18:38] LABS: Anion Gap 7 (5-15); BUN 11 mg/dL (7-18); Calcium,Total 9.5 mg/dL (8.5-10.1); Chloride 89 mmol/L (98-107); Creatinine, Serum 1.37 mg/dL (0.70-1.30); EST Glomerular Filtration Rate 60 mL/min (>60); Est Glom Filt Rate - Afr Amer 72 mL/min (>60); Estimated Creatinine Clearance 68.09 ml/min; Glucose 552 mg/dL (74-106); Potassium 4.3 mmol/L (3.5-5.1); Sodium Level 122 mmol/L (136-145)
[2022-05-17 19:51] LABS: Bedside Glucose 459 mg/dL (74-106)
[2022-05-17] MEDS: Insulin Lispro 100 UNIT/ML INSULN.PEN 15 UNIT SC (20:12)
[2022-05-17 20:30] LABS: Mucous, Urine 0 SEEN /hpf (<or=2+); Squamous Epithelial Cells - UA 0 SEEN /hpf (0-5)
[2022-05-17 20:31] LABS: Color, Urine Yellow (Yellow); Glucose, Dipstick 1000 mg/dl (Normal); Ketone-Dipstick 15 mg/dl (Negative); Leukocyte Esterase-Dipstick Negative /ul (Negative); Nitrite-Dipstick Negative (Negative); Occult Blood-Urine 50 /ul (Negative); Protein-Dipstick 30 mg/dl (Negative); Specific Gravity, Urine 1.015 (1.002-1.030); Urine Bilirubin Dipstick Negative (Negative); Urine Clarity Clear (Clear); Urine Urobilinogen Normal (Normal)
[2022-05-17 20:39] LABS: Red Blood Cells-Urine 0-5 SEEN /hpf (0-5); White Blood Cells 5-10 SEEN /hpf (0-5)
[2022-05-17 20:40] LABS: Bacteria 1+ /hpf (None Seen); Hyaline Cast 0-5 SEEN /lpf (0-5)
--- NOTE | 2022-05-17 20:43 | EDS_ITS ---
HPI History of Present Illness Chief Complaint: Hyperglycemia Informant: patient Onset/Context/Timing Onset: Days (5-6) Context: Gradual Onset Timing: Continuous Quality: Blurry vision, polyuria, polydipsia Worsened by: Nothing Relieved by: Nothing Narrative Narrative: Patient presents with elevated blood sugar and blurry vision that has been constant for the past 6 days. Patient states it came on gradually. Patient states it has been waxing and waning. Patient states his vision seemed more blurry today. Patient followed up with his detonator maker today who checked his blood sugar and saw that it was over 500. Patient was then referred to the emergency department. Patient does admit to some polyuria and polydipsia. Patient states nothing makes his symptoms any worse or any better. Patient admits to breaking out into a sweat today. Patient states he has been having some nausea and vomiting. Patient also admits to mild headache. [facility] Medical History Depression Diabetes Hypertension Home Medications escitalopram oxalate 20 mg tablet 20 mg PO DAILY 10/11/19 [History Last Taken Unknown] bupropion HCl 150 mg 24 hr tablet, extended release 150 mg PO DAILY 12/13/19 [History Last Taken Unknown] metoprolol tartrate 50 mg tablet 50 mg PO BID #60 tabs 12/13/19 [Rx Last Taken Unknown] lisinopril 20 mg PO/SL DAILY blood pressure 04/02/22 [History Last Taken Unknown] metformin 500 mg tablet 500 mg PO BID #20 tabs 05/17/22 [Rx Last Taken Unknown] Allergy/AdvReac Type Severity Reaction Status Date / Time shellfish derived Allergy Rash Verified 03/16/22 09:32 Family History Other Colon cancer Social History Smoking Status: Current every day smoker tobacco type: cigarettes ROS ROS ED Constitutional Constitutional ED: Reports sweats; Denies chills or fever(s) Eyes Eyes: Reports blurry vision; Denies diplopia ENT ENT ED: Denies rhinorrhea or sore throat Cardiovascular Cardiovascular: Denies chest pain or palpitations Respiratory/Chest Respiratory/Chest: Denies cough or dyspnea Gastrointestinal Gastrointestinal: Reports nausea and vomiting Genitourinary Genitourinary ED: Reports urinary frequency; Denies dysuria or hematuria Musculoskeletal Musculoskeletal: Denies back pain or neck pain Integumentary Denies abscess or rash Neurologic Neurologic: Reports headache(s); Denies weakness Endocrine Endocrinology: Reports polydipsia and polyuria Allergic/Immunologic Allergic/Immunologic ED: Denies mouth swelling or urticaria EXAM Physical Exam Const Vital Signs: 05/17/22 16:52 05/17/22 21:16 Temperature 97.2 F L Temperature Source Temporal Pulse Rate 96 91 Respiratory Rate 16 15 Blood Pressure 125/69 H 145/82 H Blood Pressure Mean 87 Pulse Ox 96 96 Oxygen Delivery Method Room Air Positive well nourished, well developed and obese General Appearance ED: well developed and NAD Nutritional Appearance: obese HEENT Reports moist mucous membranes Neck supple and no JVD Resp normal respiratory effort and clear to auscultation bilaterally Cardio regular rate, regular rhythm and no murmurs GI normal to inspection, nondistended, normoactive bowel sounds and non-tender Palpation: soft Extremity normal to inspection General Extremety ED: Negative for edema or tenderness General Extremity: Negative for edema Neuro oriented x3, CN's II-XII intact bilaterally and no sensory deficits noted Sensorium / Orientation: alert Motor Exam: strength 5/5 throughout Psych mental status grossly normal Skin no rashes or lesions noted MDM MDM MDM Narrative Medical decision making narrative: Patient was given IV fluids. CBC shows a mild leukocytosis of 12.5. Basic metabolic profile showed an elevated glucose of 552. Sodium was 122 and chloride was 89. Creatinine was slightly elevated at 1.37. Serum acetone was negative. Repeat GGT was obtained after IV fluids and was 459. Urinalysis shows glucosuria of 1000. Leukocyte esterase was negative. There were 5-10 white blood cells and 1+ bacteria. Urine culture will be obtained. Patient was given a dose of Humalog here. Patient was given a prescription for metformin. Patient was given diabetic diet instructions. Patient was instructed to follow- up with his primary care physician in 3 to 5 days. Patient understood and was agreeable with the plan. All questions were answered. Lab Data Attestation: I reviewed the patient's lab results. Labs: Laboratory Results - last 24 hr 05/17/22 05/17/22 05/17/22 16:56 18:05 18:05 WBC 12.5 H RBC 5.62 Hgb 16.7 H Hct 47.1 MCV 83.8 MCH 29.7 MCHC 35.5 RDW Std Deviation 37.7 RDW Coeff of Kassidy 12.4 Plt Count 331 MPV 11.2 Immature Gran % (Auto) 0.400 Neut % (Auto) 72.0 H Lymph % (Auto) 17.4 L [place] % (Auto) 8.9 Eos % (Auto) 0.4 Baso % (Auto) 0.9 Absolute Neuts (auto) 9.0 H Absolute Lymphs (auto) 2.17 Nucleated RBC % 0 Sodium 122 L Potassium 4.3 Chloride 89 L Carbon Dioxide 26.0 Anion Gap 7 BUN 11 Creatinine 1.37 H Estim Creat Clear Calc 68.09 Est GFR (MDRD) Af Amer 72 Est GFR (MDRD) Non-Af 60 BUN/Creatinine Ratio 8.0 L Glucose 552 H* Calcium 9.5 Urine Color Urine Clarity Urine pH Ur Specific [place] Urine Protein Urine Glucose (UA) Urine Ketones Urine Occult Blood Urine Nitrite Urine Bilirubin Urine Urobilinogen Ur Leukocyte Esterase Urine RBC Urine WBC Ur Squamous Epith Cells Urine Bacteria Hyaline Casts Urine Mucus Acetone Level POC Glucose > 500 H* 05/17/22 05/17/22 05/17/22 18:05 19:28 20:22 WBC RBC Hgb Hct MCV MCH MCHC RDW Std Deviation RDW Coeff of [place] Plt Count MPV Immature Gran % (Auto) Neut % (Auto) Lymph % (Auto) [place] % (Auto) Eos % (Auto) Baso % (Auto) Absolute Neuts (auto) Absolute Lymphs (auto) Nucleated RBC % Sodium Potassium Chloride Carbon Dioxide Anion Gap BUN Creatinine Estim Creat Clear Calc Est GFR (MDRD) Af Amer Est GFR (MDRD) Non-Af BUN/Creatinine Ratio Glucose Calcium Urine Color Yellow Urine Clarity Clear Urine pH 6.0 Ur Specific [place] 1.015 Urine Protein 30 H Urine Glucose (UA) 1000 H Urine Ketones 15 H Urine Occult Blood 50 H Urine Nitrite Negative Urine Bilirubin Negative Urine Urobilinogen Normal Ur Leukocyte Esterase Negative Urine RBC 0-5 SEEN Urine WBC 5-10 SEEN Ur Squamous Epith Cells 0 SEEN Urine Bacteria 1+ Hyaline Casts 0-5 SEEN Urine Mucus 0 SEEN Acetone Level NEGATIVE POC Glucose 459 H* Discharge Plan Triage Chief Complaint: Hyperglycemia ED Provider: Fred Stahl Dx/Rx/DC Orders Clinical Impression: Diabetes mellitus, new onset, Hyperglycemia Instructions: ED Diabetes- Overview, ED Diabetic Hyperglycemia, ED Diet: Diabetes Prescriptions: New metformin 500 mg tablet 500 mg PO BID Qty: 20 0RF No Action escitalopram oxalate 20 MG tablet 20 mg PO DAILY bupropion HCl 150 MG tablet extended release 24 hr 150 mg PO DAILY metoprolol tartrate 50 MG tablet 50 mg PO BID Qty: 60 0RF lisinopril 20 mg tablet 20 mg PO/SL DAILY Primary Care Provider: Roni Luke Referrals: Roni Luke MD [Primary Care Provider] - 3-5 Days Disposition Disposition: Home, Self Care Discharge Date/Time: 05/17/22 21:18
[2022-05-17 21:16] VITALS: BP 145/82; PULSE 91; RESP 15; O2SAT 96
[2022-05-17 21:36] LABS: Bedside Glucose 439 mg/dL (74-106)
== END 2022-05-17 21:18 | disposition home or self-care (01) ==
PROVIDERS: Emergency Provider Emergency Medicine; PCP Family Medicine; Visit Provider Emergency Medicine
DX: E11.65 Type 2 diabetes mellitus with hyperglycemia (principal); R51.9 Headache, unspecified; I10 Essential (primary) hypertension; F17.210 Nicotine dependence, cigarettes, uncomplicated; Z79.84 Long term (current) use of oral hypoglycemic drugs
CPT/HCPCS: 80048; 81001; 82009; 82962; 85025; 99283

== ENCOUNTER 2022-11-14 22:52 | Emergency (ER) | payer OTHER, SELFPAY ==
[2022-11-14 22:53] VITALS: BP 130/80; PULSE 56; RESP 17; TEMP 36.4; O2SAT 96; BMI 38.2
--- NOTE | 2022-11-14 23:42 | EKG12_ITS ---
Test Reason : DYSRHYTHMIA Blood Pressure : / mmHG Vent. Rate : 060 BPM Atrial Rate : 060 BPM P-R Int : 154 ms QRS Dur : 090 ms QT Int : 444 ms P-R-T Axes : 041 014 022 degrees QTc Int : 444 ms Normal sinus rhythm Normal ECG Confirmed by SOFI EDWARDS, SAMY ([id number]), sports editor MAURA TAYLOR ([id number]) on 11/16/2022 9:36:59 AM Referred By: MARY Confirmed By:SAMY FARAH MD
[2022-11-14 23:55] LABS: Absolute Lymphocyte Count 3.65 X10^3/uL (0.83-4.51); Absolute Neutrophil Count 7.4 X10^3/uL (2.0-7.7); Basophil% 0.8 % (0-1); Eosinophil# 0.21 X10^3/uL; Eosinophils% 1.6 % (0-5); Hematocrit 46.1 % (40-54); Hemoglobin 16.1 g/dL (13.0-16.5); Lymphocyte # 3.65 X10^3/ul (0.83-4.51); Lymphocyte % 28.1 % (19-41); Mean Corp Hgb Conc 34.9 g/dL (32-36); Mean Corpuscular Hgb 30.2 pg (27.0-32.0); Mean Corpuscular Volume 86.5 fL (80-94); Mean Platelet Vol. 11.3 fl (6.2-12.0); Monocyte# 1.54 X10^3/uL; Monocyte% 11.9 % (0-10); NRBC Flagged by Analyzer 0 % (0-5); Neutrophil # 7.38 X10^3/uL (2.7-7.7); Neutrophil % 56.9 % (47-70); POSITIVE DIFFERENTIAL YES; Platelet Count 329 K/mm3 (150-450); RBC Distribution Width CV 11.9 % (11.6-14.6); RBC Distribution Width SD 37.5 fl (35.1-43.9); Red Blood Count 5.33 M/mm3 (4.6-6.2)
[2022-11-14] MEDS: 0.9% Normal Saline 1,000 ML 1000 ML IV (23:55)
[2022-11-14] MEDS: Ondansetron 4 MG/2 ML Vial IV (23:55)
[2022-11-14] MEDS: diazePAM 5 MG Tablet PO (23:57)
[2022-11-15] LABS: Differential Indicated SCAN CRITERIA MET
--- NOTE | 2022-11-15 00:01 | RAD_ITS ---
INDICATION: dizziness EXAMINATION/TECHNIQUE: X-RAY - XR Chest 1 View COMPARISON: 04/04/2010 FINDINGS: LINES/DEVICES: None. LUNGS: No consolidation, edema or effusion. No pneumothorax. MEDIASTINUM AND CARDIOVASCULAR STRUCTURES: Cardiac silhouette not enlarged. Central airways and mediastinal contour are unremarkable. BONES AND SOFT TISSUES: Unremarkable. RAD/Chest 1 View (Portable) IMPRESSION: No radiographic evidence of acute cardiopulmonary disease. Electronically Signed: Inocencio Xie MD at 0:57 EDT ,
[2022-11-15 00:14] LABS: AST(SGOT) 15 U/L (15-37); Alanine Aminotransfer ALT/SGPT 36 U/L (16-61); Albumin, Serum 3.9 g/dL (3.2-5.0); Alkaline Phosphatase 80 U/L (45-117); Anion Gap 10 (5-15); BUN 11 mg/dL (7-18); BUN/Creat Ratio 12.1 RATIO (10-20); Calcium,Total 9.3 mg/dL (8.5-10.1); Chloride 105 mmol/L (98-107); Creatinine, Serum 0.91 mg/dL (0.70-1.30); EST Glomerular Filtration Rate 95 mL/min (>60); Est Glom Filt Rate - Afr Amer 115 mL/min (>60); Estimated Creatinine Clearance 102.51 ml/min; Globulin 4.1 g/dL (2.2-4.2); Glucose 354 mg/dL (74-106); Potassium 3.1 mmol/L (3.5-5.1); Sodium Level 138 mmol/L (136-145); Troponin-I HS 4 pg/mL (3.0-78.0)
[2022-11-15 00:51] VITALS: BP 115/60; PULSE 58; RESP 21; O2SAT 96
[2022-11-15 00:55] LABS: Differential Comment SCANNED
[2022-11-15] MEDS: Potassium Chloride Oral Tablet 20 MEQ PO (01:53)
--- NOTE | 2022-11-15 01:58 | EX.ED.DYSGE1 ---
HPI History of Present Illness Chief Complaint: Nausea/Vomiting Informant: patient Narrative Narrative: Patient is a 46-year-old male with history of diabetes mellitus, hypertension obstructive sleep apnea on CPAP and anxiety/depression presenting with dizziness. Patient describes it more as a spinning sensation or as if he is on a boat but has had some intermittent lightheadedness as well. Denies any history of vertigo. Had a similar episode Monday or of last week but it self resolved. Notes around the same time he did have cold with sinus congestion and cough. Those symptoms are since resolved. When the dizziness was bad he felt very nauseous and episode of vomiting. He states when he was try to walk to the bathroom he felt like he was stumbling and unsteady. Symptoms do seem to be worse when he looks to the left. No other complaints or concerns at this time. No associated chest pain difficulty breathing. Denies any hearing change or ringing in his ears. PFSH PFSH Medical History Depression Diabetes Hypertension Home Medications escitalopram oxalate 20 mg tablet 20 mg PO DAILY 10/11/19 [History Last Taken Unknown] bupropion HCl 150 mg 24 hr tablet, extended release 150 mg PO DAILY 12/13/19 [History Last Taken Unknown] lisinopril 20 mg PO/SL DAILY blood pressure 04/02/22 [History Last Taken Unknown] metformin 500 mg tablet 500 mg PO BID #20 tabs 05/17/22 [Rx Last Taken Unknown] metoprolol tartrate 50 mg tablet 100 mg PO BID 11/14/22 [History Last Taken Unknown] meclizine 25 mg tablet 25 mg PO 4X/DAY PRN PRN Dizziness #20 tabs 11/15/22 [Rx Last Taken Unknown] Allergy/AdvReac Type Severity Reaction Status Date / Time shellfish derived Allergy Rash Verified 11/14/22 22:56 Family History Other Colon cancer Social History Smoking Status: Current every day smoker tobacco type: cigarettes ROS ROS ED Constitutional Constitutional ED: Denies chills or fever(s) Eyes Eyes: Denies change in vision or diplopia ENT ENT ED: Denies ear pain, rhinorrhea or sore throat Cardiovascular Cardiovascular: Denies chest pain or palpitations Respiratory/Chest Respiratory/Chest: Denies cough Gastrointestinal Gastrointestinal: Reports nausea and vomiting; Denies abdominal pain or diarrhea Genitourinary Genitourinary ED: Denies dysuria or hematuria Musculoskeletal Musculoskeletal: Denies arthralgias or myalgias Integumentary Denies rash Neurologic Neurologic: Reports other Details: Dizziness ; Denies headache(s), paresthesias or weakness Psychiatric Psychiatric: Denies anxiety Hematologic/Lymphatic Hematologic/Lymphatic: Denies easy bleeding or easy bruising EXAM Physical Exam Const Vital Signs: 11/14/22 22:53 11/15/22 00:51 11/15/22 02:17 Temperature 97.6 F L Temperature Source Oral Pulse Rate 56 L 58 L 68 Respiratory Rate 17 21 H 16 Blood Pressure 130/80 H 115/60 136/75 H Blood Pressure Mean 96 78 Pulse Ox 96 96 98 Oxygen Delivery Method Room Air Room Air Positive well nourished, well developed and obese General Appearance ED: well developed and NAD Nutritional Appearance: obese HEENT Reports TM's clear and moist mucous membranes Negative for trauma Tympanic Membrane ED: Yes TM's clear Eyes PERRL and EOMs intact bilaterally Eyes Narrative: Mild fatiguing horizontal nystagmus bilateral, most pronounced with leftward gaze Neck supple and no JVD Chest Wall inspection of chest normal and palpation of chest normal Resp normal respiratory effort and clear to auscultation bilaterally Cardio regular rhythm and no murmurs Rate: bradycardia GI normal to inspection, nondistended, normoactive bowel sounds and non-tender Back/Spine no CVA tenderness Extremity normal to inspection General Extremety ED: Negative for edema or tenderness General Extremity: Negative for edema Neuro oriented x3, CN's II-XII intact bilaterally and no sensory deficits noted Neuro Narrative: NIH equals 0. No truncal ataxia. Normal [id number] and [id number] Sensorium / Orientation: alert Motor Exam: strength 5/5 throughout Psych mental status grossly normal Skin no rashes or lesions noted and no wounds MDM MDM MDM Narrative Medical decision making narrative: Patient evaluated for dizziness. Initially described a near syncopal sensation with more talked with a more such as sound like a peripheral vertigo. Patient has positive nystagmus. He has no signs of central vertigo such as central nystagmus, truncal ataxia or abnormal coordination. His vital signs are normal. He has no other neurologic symptoms. Patient is given a dose of Valium and has resolution of his symptoms. He is feeling much better. He does have a history of poorly controlled diabetes mellitus so I did obtain baseline labs. He is found to be hyperglycemic with a glucose of 354 however he has a normal anion gap and only a mildly low potassium is his electrolyte abnormality. He is given oral potassium replacement the emergency room. He has a mild leukocytosis of 13.0 of uncertain clinical significance. This could be reactive associate with his vomiting earlier today. There is no obvious source of infection at this time. Unable to obtain a urine sample however patient does not complain of any urinary symptoms. Patient is given IV fluids in the emergency room. We discharged with a prescription for meclizine. I counseled the patient that he needs to better control his diabetes to prevent endorgan damage from diabetes such as CKD or neuropathy. Patient counseled that he should follow-up with his primary care doctor to seek more effective treatment for his diabetes and the importance of adhering to a diabetic diet which patient admits he is slacking in. Patient given return precautions. Counseled on the Ryan maneuver. Discharged home in stable and improved condition. Lab Data Attestation: I reviewed the patient's lab results. Labs: Laboratory Results - last 24 hr 11/14/22 11/14/22 22:45 22:45 WBC 13.0 H RBC 5.33 Hgb 16.1 Hct 46.1 MCV 86.5 MCH 30.2 MCHC 34.9 RDW Std Deviation 37.5 RDW Coeff of Kassidy 11.9 Plt Count 329 MPV 11.3 Immature Gran % (Auto) 0.700 Neut % (Auto) 56.9 Lymph % (Auto) 28.1 [place] % (Auto) 11.9 H Eos % (Auto) 1.6 Baso % (Auto) 0.8 Absolute Neuts (auto) 7.4 Absolute Lymphs (auto) 3.65 Nucleated RBC % 0 Differential Comment SCANNED Diff Path Review May foll Sodium 138 Potassium 3.1 L Chloride 105 Carbon Dioxide 23.0 Anion Gap 10 BUN 11 Creatinine 0.91 Estim Creat Clear Calc 102.51 Est GFR (MDRD) Af Amer 115 Est GFR (MDRD) Non-Af 95 BUN/Creatinine Ratio 12.1 Glucose 354 H Calcium 9.3 Total Bilirubin 0.50 AST 15 ALT 36 Alkaline Phosphatase 80 Troponin I High Sens 4 Total Protein 8.0 Albumin 3.9 Globulin 4.1 Albumin/Globulin Ratio 1.0 Radiography Chest X-Ray - ED: 1 View, Read by ED Physician, Read by Radiologist and No Acute Disease Diagnostic Testing: Clinical Impression(s) from Imaging Studies Chest X-Ray 11/15/22 00:01 IMPRESSION: No radiographic evidence of acute cardiopulmonary disease. Electronically Signed: Inocencio Xie MD at 0:57 EDT , Rhythm Strip Rhythm Strip: Sinus Rhythm Rate: 60 Ectopy: None EKG Initial EKG: Attestation: I personally reviewed and interpreted this EKG as follows: Interpretation: Sinus Rhythm Comments: Normal sinus rhythm rate of 60 bpm Normal axis Normal intervals Normal ST segments Prior EKG tracings: available for review Prior: Unchanged Discharge Plan Triage Chief Complaint: Nausea/Vomiting ED Provider: Eli Pedraza Dx/Rx/DC Orders Clinical Impression: Episodic peripheral vertigo, Hyperglycemia, Acute hypokalemia Instructions: ED BPV Vertigo, ED Diabetic Hyperglycemia Prescriptions: New meclizine 25 mg tablet 25 mg PO 4X/DAY PRN PRN (Reason: Dizziness) Qty: 20 0RF No Action escitalopram oxalate 20 MG tablet 20 mg PO DAILY bupropion HCl 150 MG tablet extended release 24 hr 150 mg PO DAILY lisinopril 20 mg tablet 20 mg PO/SL DAILY metformin 500 mg tablet 500 mg PO BID Qty: 20 0RF metoprolol tartrate 50 MG tablet 100 mg PO BID Primary Care Provider: Roni Luke Referrals: Roni Luke MD [Primary Care Provider] - Disposition Disposition: Home, Self Care Discharge Date/Time: 11/15/22 03:01
[2022-11-15 02:17] VITALS: BP 136/75; PULSE 68; RESP 16; O2SAT 98
[2022-11-15 13:49] LABS: Pathologist Review Reviewed
== END 2022-11-15 03:01 | disposition home or self-care (01) ==
PROVIDERS: Emergency Provider Emergency Medicine; PCP Family Medicine; Visit Provider Emergency Medicine
DX: H81.399 Other peripheral vertigo, unspecified ear (principal); E11.65 Type 2 diabetes mellitus with hyperglycemia; E87.6 Hypokalemia; F17.210 Nicotine dependence, cigarettes, uncomplicated; F41.9 Anxiety disorder, unspecified; I10 Essential (primary) hypertension; E66.9 Obesity, unspecified; Z79.899 Other long term (current) drug therapy; Z79.84 Long term (current) use of oral hypoglycemic drugs
CPT/HCPCS: 71045; 80053; 84484; 85025; 93005; 96361; 96374; 99285; J7030; J2405

== ENCOUNTER 2022-12-27 11:41 | Emergency (ER) | payer OTHER, SELFPAY ==
[2022-12-27 11:42] VITALS: BP 142/90; PULSE 55; RESP 14; TEMP 36.6; O2SAT 98
[2022-12-27 11:52] VITALS: BP 137/88; PULSE 56; RESP 16
--- NOTE | 2022-12-27 11:52 | EX.ED.DYSGE1 ---
HPI History of Present Illness Chief Complaint: Dizziness Narrative Narrative: Patient is a 47-year-old male who was sent over from urgent care secondary to being lightheaded, dizzy, and near syncopal. Patient's had vomiting as well. Patient has had vertigo 3 times now in the past 5 to 6 weeks. Patient works in the factory. Patient had his last episode when he was in a car and he was reaching down to get his cup. Patient had a episode previous to that. Patient is never follow-up with PCP or any specific physician for vertigo previously. Patient is diabetic. Patient takes oral meds, metformin. No recent traveling. No head trauma. Patient's girlfriend is at bedside. He currently has no headache or neck pain. No chest pain or shortness of breath. Minimal nausea, no vomiting, diarrhea, or other complaints. Patient was taking out a 55 gallon drum/garbage can to a dumpster to empty today, and patient picked it up to dump it out, then sit back down again, and the vertigo started. This is not a significantly heavy garbage can, no syncopal episode. No vision or hearing changes. [facility] Medical History (Updated 12/27/22 @ 15:[address] Joey Orozco, ) Depression Diabetes Hypertension Vertigo Home Medications escitalopram oxalate 20 mg tablet 20 mg PO DAILY 10/11/19 [History Last Taken Unknown] bupropion HCl 150 mg 24 hr tablet, extended release 150 mg PO DAILY 12/13/19 [History Last Taken Unknown] lisinopril 20 mg PO/SL DAILY blood pressure 04/02/22 [History Last Taken Unknown] metformin 500 mg tablet 500 mg PO BID #20 tabs 05/17/22 [Rx Last Taken Unknown] metoprolol tartrate 50 mg tablet 100 mg PO BID 11/14/22 [History Last Taken Unknown] meclizine 25 mg tablet 25 mg PO 4X/DAY PRN PRN Dizziness #20 tabs 11/15/22 [Rx Last Taken Unknown] diazepam 2 mg tablet (Valium) 2 mg PO QHS PRN anxiety, antivert #5 tabs 12/27/22 [Rx Last Taken Unknown] meclizine 25 mg tablet 25 mg PO BID #10 tabs 12/27/22 [Rx Last Taken Unknown] Allergy/AdvReac Type Severity Reaction Status Date / Time shellfish derived Allergy Rash Verified 12/27/22 11:44 Family History Other Colon cancer Social History Smoking Status: Current every day smoker tobacco type: cigarettes ROS ROS ED ROS Narrative REVIEW OF SYSTEMS: Unless otherwise stated in this report the patient's positive and negative responses for review of systems for constitutional, eyes, ENT, cardiovascular, respiratory, gastrointestinal, neurological, , musculoskeletal, and integument systems and related systems to the presenting problem are either stated in the history of present illness or were not pertinent or were negative for the symptoms and/or complaints related to the presenting medical problem. EXAM Physical Exam Narrative Exam Narrative: Vital signs reviewed and patient is not hypoxic. General: The patient appears well and in no apparent distress. Patient is resting comfortably on cart. Not toxic, lethargic, or listless. Skin: Warm, dry, no pallor noted. There is no rash noted. Head: Normocephalic, atraumatic; no carotid bruits bilateral. Eye: Normal conjunctiva, no drainage, EOMI. PERRL. No nystagmus. Ears, Nose, Mouth, and Throat: oral mucosa is moist. Nares patent. Mouth without vesicles. Patient does have mild cerumen impaction to bilateral ear canals. Bilateral TMs show no erythema, perforation or bulging. Cardiovascular: Regular Rate and Rhythm, no murmurs, gallops, or rubs Respiratory: Patient is in no distress, no accessory muscle use, lungs are clear to auscultation, no wheezing, rales or rhonchi. Back: non-tender, no CVA tenderness bilaterally to percussion. NO CTLS midline or paraspinal tenderness to palpation. GI: Soft, obese, no tenderness to palpation, no masses appreciated. No rebound, guarding, or rigidity noted. Musculoskeletal: The patient has full range of motion of all extremities and joints with no difficulty. Patient has no motor, no sensory deficits. Neurological: A&O x4, normal speech, no focal neurological deficits. NIH 0. Psychiatric: Cooperative Const Vital Signs: 12/27/22 11:42 12/27/22 11:52 12/27/22 11:52 Temperature 97.8 F Temperature Source Temporal Pulse Rate 55 L 56 L Pulse Rate [Lying] Pulse Rate [Standing (for 1 minute prior to obtaining)] Respiratory Rate 14 16 Respiratory Effort Normal Non-Labored Respiratory Pattern Normal Blood Pressure 142/90 H 137/88 H Blood Pressure [Lying] Blood Pressure [Sitting (for 1 minute prior to obtaining)] Blood Pressure [Standing (for 1 minute prior to obtaining)] Blood Pressure Mean 107 104 Blood Pressure Mean [Lying] Blood Pressure Mean [Sitting (for 1 minute prior to obtaining)] Blood Pressure Mean [Standing (for 1 minute prior to obtaining)] Pulse Ox 98 Oxygen Delivery Method Room Air 12/27/22 14:41 12/27/22 13:42 12/27/22 15:16 Temperature Temperature Source Pulse Rate 58 L 68 Pulse Rate [Lying] 62 Pulse Rate [Standing (for 1 minute prior to obtaining)] 60 Respiratory Rate 16 16 Respiratory Effort Respiratory Pattern Blood Pressure 100/71 114/62 Blood Pressure [Lying] 102/59 L Blood Pressure [Sitting (for 1 minute prior to obtaining)] 100/64 Blood Pressure [Standing (for 1 minute prior to obtaining)] 110/77 Blood Pressure Mean 80 Blood Pressure Mean [Lying] 73 Blood Pressure Mean [Sitting (for 1 minute prior to obtaining)] 76 Blood Pressure Mean [Standing (for 1 minute prior to obtaining)] 88 Pulse Ox 98 97 Oxygen Delivery Method Room Air [facility] Lab Data Attestation: I reviewed the patient's lab results. Labs: Laboratory Results - last 24 hr 12/27/22 12/27/22 12:05 13:20 WBC 11.4 H RBC 5.48 Hgb 16.4 Hct 47.2 MCV 86.1 MCH 29.9 MCHC 34.7 RDW Std Deviation 37.2 RDW Coeff of [place]idy 11.8 Plt Count 301 MPV 10.9 Immature Gran % (Auto) 0.800 Neut % (Auto) 61.7 Lymph % (Auto) 23.7 [place] % (Auto) 10.5 H Eos % (Auto) 2.2 Baso % (Auto) 1.1 H Absolute Neuts (auto) 7.0 Absolute Lymphs (auto) 2.69 Nucleated RBC % 0 Sodium 136 Potassium 3.7 Chloride 105 Carbon Dioxide 20.0 L Anion Gap 11 BUN 17 Creatinine 0.95 Estim Creat Clear Calc 97.16 Est GFR (MDRD) Af Amer 110 Est GFR (MDRD) Non-Af 91 BUN/Creatinine Ratio 18.0 Glucose 395 H Calcium 9.1 Total Bilirubin 0.50 AST 12 L ALT 28 Alkaline Phosphatase 90 Troponin I High Sens 5 Total Protein 7.9 Albumin 3.7 Globulin 4.2 Albumin/Globulin Ratio 0.9 Lipase 43 Urine Color Yellow Urine Clarity Clear Urine pH 5.0 Ur Specific [place] 1.020 Urine Protein 30 H Urine Glucose (UA) 1000 H Urine Ketones 50 H Urine Occult Blood 25 H Urine Nitrite Negative Urine Bilirubin Negative Urine Urobilinogen Normal Ur Leukocyte Esterase Negative Urine RBC 0 SEEN Urine WBC 0 SEEN Ur Squamous Epith Cells 0 SEEN Urine Bacteria 0 SEEN Urine Mucus 0 SEEN Radiography Chest X-Ray - ED: Read by ED Physician (Chest x-ray shows no acute cardial pulm disease, no filtrate, no effusion.) Diagnostic Testing: Clinical Impression(s) from Imaging Studies Chest X-Ray 12/27/22 12:10 IMPRESSION: Old healed mid to lower right rib fracture deformities again noted. No acute cardiopulmonary disease. Electronically Signed: Berry Guevara MD at 12:26 EDT Reading Location ID and State: [id number] / Unknown , Service support , Brain CT 12/27/22 14:00 IMPRESSION: No acute intracranial pathology. Stable mucosal thickening versus retention cysts in the bilateral maxillary sinuses. Electronically Signed: Berry Guevara MD at 14:19 EDT Reading Location ID and State: [id number] / Unknown , Service support , CT of the head was negative. This was ordered secondary to having 3 different episodes of vertigo in the past 5 to 6 weeks with no previous medical care that patient has sought after. EKG Initial EKG: Attestation: I personally reviewed and interpreted this EKG as follows: Comments: EKG interpretation. Sinus bradycardia 52 beats a minute. Normal axis deviation. No acute ST elevation, no acute ectopy. QTc of 424 Additional Tests and Interventions Additional Tests or Interventions: CT the brain was negative. Chest x-ray shows no acute disease. Patient's lab work shows no acute findings. Patient's vertigo has been resolved at discharge. Patient was sent with prescription for Antivert and Valium to use as secondary medication needed. Patient understands importance of following up with PCP and ENT for additional testing for air intermittent vertigo this occurred 3 times in the past 5 to 6 weeks. Vestibular training was discussed with patient as well. Patient and girlfriend at bedside and the question of discharge, patient is asymptomatic at discharge. Discharge Plan Triage Chief Complaint: Dizziness ED Provider: Joey Orozco Dx/Rx/DC Orders Clinical Impression: Dizziness, Hyperglycemia, Vertigo, Dehydration, mild Instructions: Dizziness Fainting Causes, Dehydration, Vertigo Medicine Tx, ED BPV Vertigo, ED Vertigo, Unspecified Prescriptions: New meclizine 25 mg tablet 25 mg PO BID Qty: 10 0RF diazepam [Valium] 2 mg tablet 2 mg PO QHS PRN (Reason: anxiety, antivert) Qty: 5 0RF No Action escitalopram oxalate 20 MG tablet 20 mg PO DAILY bupropion HCl 150 MG tablet extended release 24 hr 150 mg PO DAILY lisinopril 20 mg tablet 20 mg PO/SL DAILY metformin 500 mg tablet 500 mg PO BID Qty: 20 0RF metoprolol tartrate 50 MG tablet 100 mg PO BID meclizine 25 mg tablet 25 mg PO 4X/DAY PRN PRN (Reason: Dizziness) Qty: 20 0RF Stand Alone Forms: ED Work / School Excuse Primary Care Provider: Roni Luke Referrals: Mario Jaime MD [Med Staff - Active Staff] - Roni Luke MD [Primary Care Provider] - Activity Restrictions/Additional Instructions: Call PCP today for further follow-up for vertigo. ENT physician information has also been given to you as well. Increase fluids, if vertigo will occur again, use Antivert. Use Valium as a backup if needed. Disposition Disposition: Home, Self Care Discharge Date/Time: 12/27/22 15:29
[2022-12-27 11:53] VITALS: BMI 37.7
[2022-12-27] MEDS: Ondansetron 4 MG/2 ML Vial IV (12:03)
[2022-12-27] MEDS: 0.9% Normal Saline 1,000 ML 1000 ML IV (12:03)
--- NOTE | 2022-12-27 12:10 | RAD_ITS ---
INDICATION: Dizzy EXAMINATION/TECHNIQUE: X-RAY - XR Chest 2 Views COMPARISON: AP upright chest x-ray November 15, 2022 FINDINGS: LINES/DEVICES: None. LUNGS: No consolidation, edema or effusion. No pneumothorax. MEDIASTINUM AND CARDIOVASCULAR STRUCTURES: Cardiac silhouette not enlarged. Central airways and mediastinal contour are unremarkable. BONES AND SOFT TISSUES: A few old healed fracture deformities of anterolateral mid to lower right ribs again noted. RAD/Chest PA and Lateral IMPRESSION: Old healed mid to lower right rib fracture deformities again noted. No acute cardiopulmonary disease. Electronically Signed: Berry Guevara MD at 12:26 EDT Reading Location ID and State: [id number] / Unknown , Service support ,
[2022-12-27 12:19] LABS: Absolute Lymphocyte Count 2.69 X10^3/uL (0.83-4.51); Basophil# 0.13 X10^3/uL; Basophil% 1.1 % (0-1); Eosinophil# 0.25 X10^3/uL; Eosinophils% 2.2 % (0-5); Hematocrit 47.2 % (40-54); Hemoglobin 16.4 g/dL (13.0-16.5); Lymphocyte # 2.69 X10^3/ul (0.83-4.51); Lymphocyte % 23.7 % (19-41); Mean Corp Hgb Conc 34.7 g/dL (32-36); Mean Corpuscular Hgb 29.9 pg (27.0-32.0); Mean Corpuscular Volume 86.1 fL (80-94); Mean Platelet Vol. 10.9 fl (6.2-12.0); Monocyte# 1.19 X10^3/uL; Monocyte% 10.5 % (0-10); NRBC Flagged by Analyzer 0 % (0-5); Neutrophil # 7.01 X10^3/uL (2.7-7.7); Neutrophil % 61.7 % (47-70); Platelet Count 301 K/mm3 (150-450); RBC Distribution Width CV 11.8 % (11.6-14.6); RBC Distribution Width SD 37.2 fl (35.1-43.9); Red Blood Count 5.48 M/mm3 (4.6-6.2); White Blood Count 11.4 K/mm3 (4.4-11.0)
[2022-12-27 12:35] LABS: ALB/GLOB Ratio 0.9 RATIO (0.9-2.4); AST(SGOT) 12 U/L (15-37); Alanine Aminotransfer ALT/SGPT 28 U/L (16-61); Albumin, Serum 3.7 g/dL (3.2-5.0); Alkaline Phosphatase 90 U/L (45-117); Anion Gap 11 (5-15); BUN 17 mg/dL (7-18); Calcium,Total 9.1 mg/dL (8.5-10.1); Chloride 105 mmol/L (98-107); Creatinine, Serum 0.95 mg/dL (0.70-1.30); EST Glomerular Filtration Rate 91 mL/min (>60); Est Glom Filt Rate - Afr Amer 110 mL/min (>60); Estimated Creatinine Clearance 97.16 ml/min; Globulin 4.2 g/dL (2.2-4.2); Glucose 395 mg/dL (74-106); Lipase 43 U/L (13-75); Potassium 3.7 mmol/L (3.5-5.1); Protein, Total 7.9 g/dL (6.4-8.2); Sodium Level 136 mmol/L (136-145); Troponin-I HS 5 pg/mL (3.0-78.0)
[2022-12-27] MEDS: Meclizine HCl 25 MG Tablet PO (12:59)
[2022-12-27] MEDS: diazePAM 5 MG Tablet PO (13:00)
[2022-12-27 13:30] LABS: Bacteria 0 SEEN /hpf (None Seen); Mucous, Urine 0 SEEN /hpf (<or=2+); Red Blood Cells-Urine 0 SEEN /hpf (0-5); Squamous Epithelial Cells - UA 0 SEEN /hpf (0-5); White Blood Cells 0 SEEN /hpf (0-5)
[2022-12-27 13:36] LABS: Color, Urine Yellow (Yellow); Glucose, Dipstick 1000 mg/dl (Normal); Ketone-Dipstick 50 mg/dl (Negative); Leukocyte Esterase-Dipstick Negative /ul (Negative); Nitrite-Dipstick Negative (Negative); Occult Blood-Urine 25 /ul (Negative); Protein-Dipstick 30 mg/dl (Negative); Urine Bilirubin Dipstick Negative (Negative); Urine Clarity Clear (Clear); Urine Urobilinogen Normal (Normal)
[2022-12-27 13:42] VITALS: BP 100/71; PULSE 58; RESP 16; O2SAT 98
--- NOTE | 2022-12-27 14:00 | CT_ITS ---
INDICATION: Vertigo EXAMINATION: CT BRAIN - CT Head or Brain W/O Contrast Injection TECHNIQUE: Multiple axial images were obtained of the head without intravenous contrast. A radiation dose optimization technique was used for this scan. IV Contrast dosage and agent: None. RADIATION DOSAGE (If Supplied By Facility): CTDIvol = ( 44.99 ) mGy, DLP = ( 863.60 ) mGycm COMPARISON: Noncontrast CT brain December 13, 2019. FINDINGS: BRAIN PARENCHYMA: No intra- or extra-axial hemorrhage. No evidence of acute infarct. No intracranial mass or mass effect. There is preservation of the romo/white matter interface. Posterior fossa structures are unremarkable. CSF SPACES: Appropriate for age. No hydrocephalus. Basal cisterns are patent. CALVARIUM, SKULL BASE, PARANASAL SINUSES AND MASTOID AIR CELLS: Stable mucoperiosteal thickening versus retention cysts in the bilateral maxillary antra. No discrete lytic or blastic abnormalities. ORBITS: Both globes, extraocular muscles, optic nerves and retrobulbar fat appear unremarkable. CT/Brain/Head without Contrast IMPRESSION: No acute intracranial pathology. Stable mucosal thickening versus retention cysts in the bilateral maxillary sinuses. Electronically Signed: Berry Guevara MD at 14:19 EDT Reading Location ID and State: [id number] / Unknown , Service support ,
[2022-12-27] MEDS: 0.9% Normal Saline 1,000 ML 999 ML IV (14:34)
[2022-12-27 14:41] VITALS: BP 100/64; BP 102/59; BP 110/77; PULSE 60; PULSE 62
[2022-12-27 15:16] VITALS: BP 114/62; PULSE 68; RESP 16; O2SAT 97
== END 2022-12-27 15:29 | disposition home or self-care (01) ==
PROVIDERS: Emergency Provider Emergency Medicine; PCP Family Medicine; Visit Provider Emergency Medicine
DX: R42 Dizziness and giddiness (principal); E11.65 Type 2 diabetes mellitus with hyperglycemia; E86.0 Dehydration; F17.210 Nicotine dependence, cigarettes, uncomplicated; Z79.84 Long term (current) use of oral hypoglycemic drugs
CPT/HCPCS: 70450; 71046; 80053; 81001; 83690; 84484; 85025; 93005; 96361; 96374; 99285; J7030; A4216; J2405

== ENCOUNTER 2023-02-03 08:12 | Emergency (ER) | payer OTHER, SELFPAY ==
[2023-02-03 08:13] VITALS: BP 117/86; PULSE 57; RESP 14; TEMP 37.2; O2SAT 100
[2023-02-03 08:18] VITALS: BMI 37.2
--- NOTE | 2023-02-03 08:43 | EX.ED.DYSGE1 ---
HPI History of Present Illness Chief Complaint: Dizziness Informant: patient Onset/Context/Timing Onset: Hours (1) Context: Sudden Onset (When turned his head 1 way) Timing: Continuous Quality: Spinning vertigo Location: Head Current Severity: Moderate Maximum Severity: Severe Worsened by: Moving Relieved by: Remaining still Associated Symptoms Associated Symptoms: Nausea/vomiting no other symptoms Narrative Narrative: Recurrent episode of vertigo patient states he has had this multiple times, he saw someone with ENT and states they basically told him that there was nothing else to do. He has never taken any medication for this. Episodes typically last hours. He denies any symptoms of hearing issues or tinnitus or headache. No vision disturbance, trouble, or diplopia. No lateralizing neurologic symptoms. Just feels off balance when walking and nauseated due to the spinning. He was feeling fine prior to this starting, he was at work and turned his head 1 way and triggered severe vertigo similar to the prior episodes. [facility] Medical History Depression Diabetes Hypertension Vertigo Home Medications escitalopram oxalate 20 mg tablet 20 mg PO DAILY 10/11/19 [History Last Taken Unknown] bupropion HCl 150 mg 24 hr tablet, extended release 150 mg PO DAILY 12/13/19 [History Last Taken Unknown] lisinopril 20 mg PO/SL DAILY blood pressure 04/02/22 [History Last Taken Unknown] metformin 500 mg tablet 500 mg PO BID #20 tabs 05/17/22 [Rx Last Taken Unknown] metoprolol tartrate 50 mg tablet 100 mg PO BID 11/14/22 [History Last Taken Unknown] meclizine 25 mg tablet 25 mg PO 4X/DAY PRN PRN Dizziness #20 tabs 11/15/22 [Rx Last Taken Unknown] diazepam 2 mg tablet (Valium) 2 mg PO QHS PRN anxiety, antivert #5 tabs 12/27/22 [Rx Last Taken Unknown] meclizine 25 mg tablet 25 mg PO BID #10 tabs 12/27/22 [Rx Last Taken Unknown] meclizine 25 mg tablet 25 mg PO Q6H PRN PRN Dizziness #20 tabs 02/03/23 [Rx Last Taken Unknown] Allergy/AdvReac Type Severity Reaction Status Date / Time shellfish derived Allergy Rash Verified 02/03/23 08:13 Family History Other Colon cancer Social History Smoking Status: Current every day smoker tobacco type: cigarettes ROS ROS ED Constitutional Constitutional ED: Denies chills or fever(s) Eyes Eyes: Denies change in vision or diplopia ENT ENT ED: Reports as per HPI and vertigo; Denies hearing loss, hoarseness, nasal congestion, rhinorrhea, sinus pain, sore throat or tinnitus Cardiovascular Cardiovascular: Denies chest pain or palpitations Respiratory/Chest Respiratory/Chest: Denies cough or dyspnea Gastrointestinal Gastrointestinal: Reports nausea and vomiting; Denies abdominal pain or diarrhea Genitourinary Genitourinary ED: Denies dysuria or hematuria Musculoskeletal Musculoskeletal: Denies back pain or neck pain Integumentary Denies abscess or rash Neurologic Neurologic: Denies headache(s), paresthesias or weakness Psychiatric Psychiatric: Denies anxiety or suicidal thoughts EXAM Physical Exam Const Vital Signs: 02/03/23 08:13 Temperature 99 F Temperature Source Temporal Pulse Rate 57 L Respiratory Rate 14 Blood Pressure 117/86 H Blood Pressure Mean 96 Pulse Ox 100 Oxygen Delivery Method Room Air Positive well nourished and well developed General Appearance ED: well developed and NAD HEENT Reports TM's clear and moist mucous membranes normocephalic and atraumatic Tympanic Membrane ED: Yes TM's clear Eyes PERRL and EOMs intact bilaterally Eyes Narrative: None fatigable horizontal nystagmus, worse to the left. No vertical or rotatory nystagmus. Neck full ROM and supple Resp normal respiratory effort and clear to auscultation bilaterally Cardio regular rate, regular rhythm and no murmurs GI non-tender and non-distended Auscultation: normoactive bowel sounds Palpation: soft Back/Spine no CVA tenderness General Back: other FROM Extremity normal to inspection General Extremety ED: Negative for edema, pulses abnormal or tenderness General Extremity: Negative for edema or pulses abnormal Neuro oriented x3, CN's II-XII intact bilaterally and no sensory deficits noted Neuro Narrative: Normal [id number] and [id number] bilaterally Sensorium / Orientation: awake and alert Motor Exam: strength 5/5 throughout Psych mental status grossly normal Skin no rashes or lesions noted and no wounds MDM MDM MDM Narrative Medical decision making narrative: Patient with an abnormal jolt test, clearly having peripheral vertigo here. He was given meclizine 50 mg on reevaluation he is doing much better, is able to walk back and forth to the bathroom, he is comfortable with discharge. Otolaryngology follow-up advised. Discharge Plan Triage Chief Complaint: Dizziness ED Provider: Mynor Key Dx/Rx/DC Orders Clinical Impression: Episodic peripheral vertigo Instructions: ED BPV Vertigo Prescriptions: Changed meclizine 25 mg tablet 25 mg PO Q6H PRN PRN (Reason: Dizziness) Qty: 20 0RF No Action escitalopram oxalate 20 MG tablet 20 mg PO DAILY bupropion HCl 150 MG tablet extended release 24 hr 150 mg PO DAILY lisinopril 20 mg tablet 20 mg PO/SL DAILY metformin 500 mg tablet 500 mg PO BID Qty: 20 0RF metoprolol tartrate 50 MG tablet 100 mg PO BID meclizine 25 mg tablet 25 mg PO 4X/DAY PRN PRN (Reason: Dizziness) Qty: 20 0RF meclizine 25 mg tablet 25 mg PO BID Qty: 10 0RF diazepam [Valium] 2 mg tablet 2 mg PO QHS PRN (Reason: anxiety, antivert) Qty: 5 0RF Primary Care Provider: Roni Luke Referrals: Addy Liang MD [Med Staff - Active Staff] - Roni Luke MD [Primary Care Provider] - Disposition Disposition: Home, Self Care
[2023-02-03] MEDS: Meclizine HCl 25 MG Tablet 50 MG PO (09:02)
[2023-02-03] MEDS: Ondansetron 4 MG/2 ML Vial IV (09:02)
[2023-02-03 10:12] VITALS: BP 123/76; PULSE 78; RESP 14; O2SAT 98
[2023-02-03 11:00] VITALS: BP 134/78; PULSE 64; RESP 14; TEMP 37; O2SAT 99
== END 2023-02-03 11:02 | disposition home or self-care (01) ==
PROVIDERS: Emergency Provider Emergency Medicine; PCP Family Medicine; Visit Provider Emergency Medicine
DX: H81.399 Other peripheral vertigo, unspecified ear (principal); F17.210 Nicotine dependence, cigarettes, uncomplicated
CPT/HCPCS: 96374; 99284; A4216; J2405

== ENCOUNTER 2023-07-07 08:25 | Emergency (ER) | payer OTHER, SELFPAY ==
[2023-07-07 08:27] VITALS: BP 115/70; PULSE 59; RESP 16; TEMP 35; O2SAT 98; BMI 35.6
--- NOTE | 2023-07-07 08:32 | EDS_ITS ---
HPI History of Present Illness Chief Complaint: Hyperglycemia Informant: patient Onset/Context/Timing Onset: Days (3) Context: Gradual Onset Timing: Continuous Worsened by: Nothing Relieved by: Nothing Narrative Narrative: Patient presents with elevated blood sugars that have been getting progressively worse over the past 3 days. Patient states that today he was at work and the nurse at work checked his blood sugar and it was in the upper 300s and low 400s. Patient states the nurse at work sent him into the emergency department to get some insulin . Patient denies any polyuria or polydipsia. Patient denies any fevers but admits to some subjective chills recently. Patient denies any chest pain or shortness of breath. Patient denies any nausea or vomiting. Patient denies any abdominal pain. Patient states he takes metformin daily but is not on any insulin. PFSH PFS Medical History Depression Diabetes Hypertension Vertigo Home Medications escitalopram oxalate 20 mg tablet 20 mg PO DAILY 10/11/19 [History Last Taken 07/06/23] bupropion HCl 150 mg 24 hr tablet, extended release 150 mg PO DAILY 12/13/19 [History Last Taken 07/07/23] lisinopril 20 mg PO DAILY blood pressure 04/02/22 [History Last Taken 07/06/23] metformin 500 mg tablet 500 mg PO BID #20 tabs 05/17/22 [Rx Last Taken 07/07/23] metoprolol tartrate 100 mg tablet 100 mg PO Q12H 07/07/23 [History Last Taken 07/07/23] Allergy/AdvReac Type Severity Reaction Status Date / Time shellfish derived Allergy Rash Verified 07/07/23 08:27 Family History Other Colon cancer Surgical History no surgical history no surgical history Social History Smoking Status: Current every day smoker tobacco type: cigarettes ROS ROS ED Constitutional Constitutional ED: Reports chills and subjective; Denies fever(s) Eyes Eyes: Denies blurry vision or change in vision ENT ENT ED: Denies rhinorrhea or sore throat Cardiovascular Cardiovascular: Denies chest pain or palpitations Respiratory/Chest Respiratory/Chest: Denies cough or dyspnea Gastrointestinal Gastrointestinal: Denies nausea or vomiting Genitourinary Genitourinary ED: Denies dysuria or hematuria Musculoskeletal Musculoskeletal: Denies back pain or neck pain Integumentary Reports rash; Denies abscess Neurologic Neurologic: Denies headache(s) or weakness Allergic/Immunologic Allergic/Immunologic ED: Denies mouth swelling or urticaria EXAM Physical Exam Const Vital Signs: 07/07/23 08:27 07/07/23 09:11 07/07/23 11:04 Temperature 95 F L Temperature Source Temporal Pulse Rate 59 L 97 Respiratory Rate 16 15 Respiratory Effort Normal Non-Labored Respiratory Pattern Normal Blood Pressure 115/70 134/77 H Blood Pressure Mean 85 96 Pulse Ox 98 97 Oxygen Delivery Method Room Air Positive well nourished, well developed and obese General Appearance ED: well developed and NAD Nutritional Appearance: obese HEENT Reports moist mucous membranes Neck supple and no JVD Resp normal respiratory effort and clear to auscultation bilaterally Cardio regular rate and regular rhythm GI non-tender and non-distended Auscultation: normoactive bowel sounds Palpation: soft Extremity normal to inspection General Extremety ED: Negative for edema or tenderness General Extremity: Negative for edema Neuro oriented x3, CN's II-XII intact bilaterally and no sensory deficits noted Sensorium / Orientation: alert Motor Exam: strength 5/5 throughout Psych mental status grossly normal MDM MDM MDM Narrative Medical decision making narrative: Differential diagnosis includes hyperglycemia, diabetic ketoacidosis, hyperosmolar hyperglycemic state, and urinary tract infection. CBC will be obtained to assess for leukocytosis and anemia. Basic metabolic profile will be obtained to assess for hyperglycemia, electrolyte abnormality, and renal function. Urinalysis will be obtained to assess for glucosuria, ketonuria, and urinary tract infection. Lab Data Attestation: I reviewed the patient's lab results. Lab results narrative: CBC was reviewed and was within normal limits. Basic metabolic profile was reviewed. Glucose was elevated at 392. Sodium was low at 128 and chloride was 97. CO2 was also low at 17. Anion gap was 14. Urinalysis was reviewed. Glucose was 1000. Ketones were 150. There is no evidence of urinary tract infection or hematuria. Serum acetone was reviewed and was moderate. Labs: Laboratory Results - last 24 hr 07/07/23 07/07/23 07/07/23 08:55 09:09 09:50 WBC 9.7 RBC 5.04 Hgb 15.1 Hct 43.3 MCV 85.9 MCH 30.0 MCHC 34.9 RDW Std Deviation 37.0 RDW Coeff of Kassidy 11.9 Plt Count 251 MPV 11.2 Immature Gran % (Auto) 0.700 Neut % (Auto) 67.8 Lymph % (Auto) 19.4 Cass % (Auto) 8.9 Eos % (Auto) 2.1 Baso % (Auto) 1.1 H Absolute Neuts (auto) 6.6 Absolute Lymphs (auto) 1.88 Nucleated RBC % 0 Sodium 128 L Potassium 3.9 Chloride 97 L Carbon Dioxide 17.0 L Anion Gap 14 BUN 16 Creatinine 0.84 Estim Creat Clear Calc 129.83 Est GFR (MDRD) Af Amer 126 Est GFR (MDRD) Non-Af 104 BUN/Creatinine Ratio 19.0 Glucose 392 H Calcium 8.6 Urine Color Yellow Urine Clarity Clear Urine pH 5.0 Ur Specific [place] 1.020 Urine Protein 15 H Urine Glucose (UA) 1000 H Urine Ketones 150 A* Urine Occult Blood 25 H Urine Nitrite Negative Urine Bilirubin Negative Urine Urobilinogen Normal Ur Leukocyte Esterase Negative Urine RBC 0-5 SEEN Urine WBC 0 SEEN Ur Squamous Epith Cells 0-5 SEEN Urine Bacteria 0 SEEN Urine Mucus 0 SEEN Acetone Level MODERATE H Management Discussion w/another healthcare provider: Hospitalist Treatment and Re-Evaluation :: Patient was advised of his findings. Patient was started on insulin drip. Case will be discussed with the hospitalist for admission. Patient understood and was agreeable with the plan. All questions were answered. I was informed by nursing staff that the patient did not want to stay in the hospital and wanted his IV to be taken out. Patient left prior to being admitted. Nurse states that she discussed his results and the risks of hyperg lycemia and DKA with the patient. He did not want to stay. Patient left AGAINST MEDICAL ADVICE. Critical Care Time Critical Care Time: Yes Critical care time (excluding procedures): 30-74 minutes (31), Including time spent:, Discussing w/Patient &/or Family/Insurance Investigator, Discussing w/Consultants, Arranging Admission or Transfer and Performing Direct Patient Care at Bedside Discharge Plan Triage Chief Complaint: Hyperglycemia ED Provider: Fred Stahl Dx/Rx/DC Orders Clinical Impression: Diabetic ketoacidosis, Hypokalemia Prescriptions: No Action escitalopram oxalate 20 MG tablet 20 mg PO DAILY bupropion HCl 150 MG tablet extended release 24 hr 150 mg PO DAILY lisinopril 20 mg tablet 20 mg PO DAILY metformin 500 mg tablet 500 mg PO BID Qty: 20 0RF metoprolol tartrate 100 mg tablet 100 mg PO Q12H Primary Care Provider: Roni Luke Referrals: Roni Luke MD [Primary Care Provider] - Disposition Disposition: Against Medical Advice
[2023-07-07 09:14] LABS: Absolute Lymphocyte Count 1.88 X10^3/uL (0.83-4.51); Absolute Neutrophil Count 6.6 X10^3/uL (2.0-7.7); Basophil# 0.11 X10^3/uL; Basophil% 1.1 % (0-1); Eosinophils% 2.1 % (0-5); Hematocrit 43.3 % (40-54); Hemoglobin 15.1 g/dL (13.0-16.5); Lymphocyte # 1.88 X10^3/ul (0.83-4.51); Lymphocyte % 19.4 % (19-41); Mean Corp Hgb Conc 34.9 g/dL (32-36); Mean Corpuscular Volume 85.9 fL (80-94); Mean Platelet Vol. 11.2 fl (6.2-12.0); Monocyte# 0.86 X10^3/uL; Monocyte% 8.9 % (0-10); NRBC Flagged by Analyzer 0 % (0-5); Neutrophil # 6.55 X10^3/uL (2.7-7.7); Neutrophil % 67.8 % (47-70); Platelet Count 251 K/mm3 (150-450); RBC Distribution Width CV 11.9 % (11.6-14.6); Red Blood Count 5.04 M/mm3 (4.6-6.2); White Blood Count 9.7 K/mm3 (4.4-11.0)
[2023-07-07 09:17] LABS: Bacteria 0 SEEN /hpf (None Seen); Mucous, Urine 0 SEEN /hpf (<or=2+); White Blood Cells 0 SEEN /hpf (0-5)
[2023-07-07 09:21] LABS: Color, Urine Yellow (Yellow); Glucose, Dipstick 1000 mg/dl (Normal); Leukocyte Esterase-Dipstick Negative /ul (Negative); Nitrite-Dipstick Negative (Negative); Occult Blood-Urine 25 /ul (Negative); Protein-Dipstick 15 mg/dl (Negative); Urine Bilirubin Dipstick Negative (Negative); Urine Clarity Clear (Clear); Urine Urobilinogen Normal (Normal)
[2023-07-07 09:25] LABS: Anion Gap 14 (5-15); BUN 16 mg/dL (7-18); Calcium,Total 8.6 mg/dL (8.5-10.1); Chloride 97 mmol/L (98-107); Creatinine, Serum 0.84 mg/dL (0.70-1.30); EST Glomerular Filtration Rate 104 mL/min (>60); Est Glom Filt Rate - Afr Amer 126 mL/min (>60); Estimated Creatinine Clearance 129.83 ml/min; Glucose 392 mg/dL (74-106); Potassium 3.9 mmol/L (3.5-5.1); Sodium Level 128 mmol/L (136-145)
[2023-07-07 09:30] LABS: Red Blood Cells-Urine 0-5 SEEN /hpf (0-5); Squamous Epithelial Cells - UA 0-5 SEEN /hpf (0-5)
[2023-07-07 09:31] LABS: Ketone-Dipstick 150 mg/dl (Negative)
--- OUTSIDE RECORDS SUMMARY | 2023-07-07 09:47 | XMS RPT_ITS | CCD ---
Author Name Unknown Address [address] [place] [address] Organization [facility] Care Team Providers Care Sandblaster Supervisor Name Role Phone Luiz Savage MD Primary Care Provider LUIZ SAVAGE Primary Care Unavailable LUIZ SAVAGE Attending Unavailable LUIZ SAVAGE Primary Care Unavailable Allergies Allergy Classification Reported Allergen(s) Allergy Type Date of Onset Reaction(s) Facility (10 sources) Shellfish; Translations: [SHELLFISH DERIVED] Drug Allergy 07-17-2016 [facility] Medications Completed/Discontinued Medications Medication Drug Class(es) Dates Sig (Normalized) Sig (Original) [id number] 200 actuat albuterol 0.09 mg/actuat metered dose inhaler (4 sources) beta2-Adrenergic Agonist Start: 06-22-2021 End: 05-25-2022 take 2 puff(s) by inhalation every six hours as needed for wheezing albuterol HFA (PROVENTIL HFA, VENTOLIN HFA) 90 mcg/actuation inhaler Inhale 2 Puffs as instructed every 6 hours as needed for wheezing/shortness of breath. 1 Each 0 06/22/2021 05/25/2022 Discontinued Problems Active Problems Problem Classification Problem Date Documented Da te Episodic/Chronic Abdominal pain (1 source) Abdominal discomfort; Translations: [Unspecified abdominal pain] 12-27-2022 Episodic Conditions associated with dizziness or vertigo (1 source) Vertigo; Translations: [Dizziness and giddiness] 03-03-2023 Episodic Diabetes mellitus with complications (2 sources) Type 2 diabetes mellitus; Translations: [Type 2 diabetes mellitus with hyperglycemia] Chronic Essential hypertension (9 sources) Essential hypertension; Translations: [Essential (primary) hypertension] Onset: 01-07-2020 01-07-2020 Chronic Mood disorders (10 sources) Recurrent major depression in partial remission; Translations: [Major depressive disorder, recurrent, in partial remission] Onset: 02-10-2016 02-10-2016 Chronic Nausea and vomiting (1 source) Nausea and vomiting; Translations: [Nausea with vomiting, unspecified] 12-27-2022 Episodic Residual codes; unclassified (9 sources) Obstructive sleep apnea syndrome; Translations: [Obstructive sleep apnea (adult) (pediatric)] Onset: 09-05-2018 09-05-2018 Chronic Substance-related disorders (9 sources) Smoker; Translations: [Nicotine dependence, unspecified, uncomplicated] Onset: 09-05-2018 09-05-2018 Chronic Past or Other Problems Problem Classification Problem Date Documented Da te Episodic/Chronic Calculus of urinary tract (9 sources) Kidney stone; Translations: [Calculus of kidney] Onset: 01-11-2017 01-11-2017 Episodic Other diseases of kidney and ureters (9 sources) Cyst of kidney; Translations: [Cyst of kidney, acquired] Onset: 01-11-2017 01-11-2017 Episodic Residual codes; unclassified (9 sources) Insomnia; Translations: [Insomnia, unspecified] Onset: 02-10-2016 02-10-2016 Episodic Results Test Name Value Interpretation Reference Range Facil ity Vital Signs Date Time Vital Sign Value Performing Clinician Faci lity 05-25-2022 17:50-0500 Body weight 135.44 kg Luiz Savage MD Work Phone: [facility] 05-25-2022 17:50-0500 Diastolic blood pressure 84 mm[Hg] Luiz Savage MD Work Phone: [facility] 05-25-2022 17:50-0500 Heart rate 76 /min Luiz Savage MD Work Phone: [facility] 05-25-2022 17:50-0500 Respiratory rate 16 /min Luiz Savage MD Work Phone: [facility] 05-25-2022 17:50-0500 Systolic blood pressure 130 mm[Hg] Luiz Savage MD Work Phone: [facility] Encounters Encounter Date Encounter Type Care Provider Facility Start: 03-02-2023 Telephone encounter Nuzhat [address] Procedures Date Procedure Procedure Detail Performing Clinician Start: 04-04-2019 Lipid 1996 panel - S pat or Plasma Nuzhat [facility] Plan of Treatment Date Care Activity Detail Author Start: 02-14-2028 Urine microalbumin profile [facility] Start: 04-04-2024 Lipid 1996 panel - S pat or Plasma Lipid Screening [facility] Start: 04-04-2024 LIPID SCREEN LIPID SCREEN [facility] Start: 05-25-2023 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 ANNUAL PCP TEAM CHRONIC DISEASE VISIT [facility] Start: 02-10-2023 Influenza vaccination C [facility] Start: 06-25-2022 End: 08-25-2022 Comprehensive metabolic 2000 panel - Serum or Plasma COMP METABOLIC PANEL Lab Routine Type 2 diabetes mellitus with hyperglycemia, without long-term current use of insulin (HCC) Expected: 06/25/2022 (Approximate), Expires: 08/25/2022 [facility] Work Phone: Immunizations Immunization Date Immunization Notes Care Provider Delmar saleh 10-02-2020 COVID-19 original vaccine, age 12+ yr, monovalent (PFIZER-BIONTECH - PURPLE TOP) Luiz Savage MD Work Phone: [facility] 09-11-2020 COVID-19 original vaccine, age 12+ yr, monovalent (PFIZER-BIONTECH - PURPLE TOP) Luiz Savage MD Work Phone: [facility] 03-12-2020 influenza, seasonal, injectable Luiz Savage MD Work Phone: [facility] 03-12-2020 influenza virus vaccine, unspecified formulation Nuzhat Laureano [facility] 03-26-2019 influenza, seasonal, injectable Luiz Savage MD Work Phone: [facility] 04-12-2018 influenza, seasonal, injectable Luiz Savage MD Work Phone: [facility] 02-13-2018 tetanus toxoid, redu kelli diphtheria toxoid, and acellular pertussis vaccine, adsorbed Luiz Savage MD Work Phone: [facility] Payers Date Payer Category Payer Private Health Insurance [facility] [employer] [id number] 2018-Present [phone] [address] [address] [place] [address] [facility] [id number] 2018 Unknown [id number] Social History Date Type Detail Facility Start: 12-23-2020 End: 05-25-2022 Tobacco smoking status NHIS Smokes tobacco daily [facility] End: 11-08-2008 History of tobacco use Cigarette Smoker [facility] Start: 12-23-2020 End: 06-28-2022 Cigarettes smoked current (pack per day) - Reported 0.5 [facility] Start: 12-23-2020 End: 05-25-2022 Tobacco use and exposure Former smokeless tobacco user [facility] History of tobacco use Chews Tobacco [facility] Start: 06-22-2021 End: 05-25-2022 Alcohol intake Current drinker of alcohol (finding) [facility] Start: 12-21-2020 End: 05-23-2022 History SDOH Alcohol Frequency 3 [facility] Start: 12-21-2020 End: 05-23-2022 History SDOH Alcohol Std Drinks 2 [facility] Start: 12-21-2020 End: 05-23-2022 History SDOH Social Connections Get Together 1 [facility] Start: 12-21-2020 End: 05-23-2022 History SDOH Social Connections Living 5 [facility] Start: 12-21-2020 History SDOH Stress 4 [facility] Start: 12-21-2020 Education 12 [facility] Start: 04-04-2019 End: 05-25-2022 Tobacco Comment Trying to quit [facility] Start: 1975 Sex Assigned At Male C [facility] Start: 05-23-2022 History SDOH Social Connections Phone 98 [facility] Start: 05-23-2022 End: 06-28-2022 Social connection and isolation panel [facility] In a typical week, h ow many times do you talk on the telephone with family, friends, or neighbors? Patient refused [facility] Do you belong to any clubs or organizations such as yarsani groups, unions, fraternal or athletic groups, or school groups? No [facility] Are you now , , , , never or living with a partner? [facility] How often to you hav e a drink containing alcohol? 2-4 times a month [facility] How many standard dr inks containing alcohol do you have on a typical day? 3 or 4 [facility] How often do you hav e 6 or more drinks on 1 occasion? Less than monthly [facility] Do you feel stress - tense, restless, nervous, or anxious, or unable to sleep at night because your mind is troubled all the time - these days [OSQ] Only a little [facility] (I/We) worried an er (my/our) food would run out before (I/we) got money to buy more. Never true [facility] Start: 12-18-2020 Gender identity Identifies as male gender (finding) [facility] Clinical Notes 01-09-2009 to 03-03-2023 Telephone Encounter - Candi Perez RN - 03/03/2023 11:15 AM EDTTelephone Encounter - Jamia Teague LPN - 03/03/2023 9:13 AM EDTTelephone Encounter - Nuzhat Laureano PSS - 03/02/2023 8:54 AM EDT Note Date & Type Note Facility 03-03-2023 Miscellaneous Notes Formattin g of this note might be different from the original. Pt returned call and given provider's message below with verbalized understanding. TC to pt. LM to call office, ask for triage nurse to get results. Jamia Teague LPN Referral placed for ENT. Can go to my [facility] at [facility] or go to [facility] which is an outside facility. Manohar Nagel APRN.[place]ENCIA Patient is asking for a referral to an ENT provider for vertigo attacks he has been having recently. His employer will not let him go back to work until he sees the ENT due to the frequency of the issues. Please advise. BRYANT Garcia March 02, 2023 8:55 AM documented in this encounter [facility] 12-27-2022 Note HNO ID: [id number] Author: Juno Chamorro APRN.[employer] HE[employer] STIFFENER Service: ? Author Type: Nurse Practitioner Type: Progress Notes Filed: 12/27/2022 11:49 AM Note Text: Patient triaged at [facility] care, here for abdominal discomfort, profuse vomiting, high blood sugar. Patient sweating diffusely and vomiting during triage. I recommend ER, patient declines squad, coworker to drive pov to [facility]. [facility] 12-27-2022 History of Presen t illness Narrative Patient triaged at [facility], here for abdominal discomfort, profuse vomiting, high blood sugar. Patient sweating diffusely and vomiting during triage. I recommend ER, patient declines squad, coworker to drive pov to [facility]. documented in this encounter [facility] 09-05-2022 Miscellaneous Notes Formattin g of this note might be different from the original. Pt was d/c from ED with Metformin 500 mg bid. Rx written on med list is for once daily. Please advise. Alyssia Tapia Ma documented in this encounter [facility] 05-30-2022 Miscellaneous Notes Formattin g of this note might be different from the original. OK; noted Luiz Savage MD Routed to PCP to make him aware of this. Any other suggestions? Alyssia Tapia Ma Spoke with the patient and declined to schedule this as he stated he can not miss that much work. Pt has been referred to DM Management. Can we please contact him and help get him setup with these appt's. Thanks, Alyssia Tapia Ma documented in this encounter [facility] 05-26-2022 Miscellaneous Notes Formattin g of this note might be different from the original. Telephoned the patient to schedule a new Primary Care pharmacy appt. Left a message. documented in this encounter [facility] 05-25-2022 Note HNO ID: [id number] Author: Luiz Savage MD Service: ? Author Type: Physician Type: Progress Notes Filed: 05/25/2022 6:53 PM Note Text: Chief Complaint ER follow up/Diabetes new diagnosis HPI Erasto Chapman is a 46 year old male who presents here today for ER Follow Up.. Pt presented to [facility] ER on 05/17/22 for abdominal pain, elevated blood sugar and pleural effusion with hypoxia. He was started on Metformin 500 mg 1 pill BID. Glucose level at ER was 552. DM - About two weeks ago noticed that his vision was blurry. Went to [facility], they checked finger stick sugar and sent him to ER. He had been having increased thirst and urination also. Reports improvement in some of the symptoms he was having when he went to the ED. Still has some symptoms but better. No neuropathy symptoms. He did get a home glucometer and is checking sugars 2-3 x per day. FBS ranging from 200-220. He's changing his diet but still craves sugary type drinks. Currently taking Metformin 500 mg bid. No family history of DM. Below copied from [facility] [employer]: History of Present Illness Chief Complaint: Hyperglycemia Informant: patient Onset/Context/Timing Onset: Days (5-6) Context: Gradual Onset Timing: Continuous Quality: Blurry vision, polyuria, polydipsia Worsened by: Nothing Relieved by: Nothing Narrative Narrative: Patient presents with elevated blood sugar and blurry vision that has been constant for the past 6 days. Patient states it came on gradually. Patient states it has been waxing and waning. Patient states his vision seemed more blurry today. 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 Patient was then referred to the emergency department. Patient does admit to some polyuria and polydipsia. Patient states nothing makes his symptoms any worse or any better. Patient admits to breaking out into a sweat today. Patient states he has been having some nausea and vomiting. Patient also admits to mild headache. [facility] Narrative Medical decision making narrative: Patient was given IV fluids. CBC shows a mild leukocytosis of 12.5. Basic metabolic profile showed an elevated glucose of 552. Sodium was 122 and chloride was 89. Creatinine was slightly elevated at 1.37. Serum acetone was negative. Repeat GGT was obtained after IV fluids and was 459. Urinalysis shows glucosuria of 1000. Leukocyte esterase was negative. There were 5-10 white blood cells and 1+ bacteria. Urine culture will be obtained. Patient was given a dose of Humalog here. Patient was given a prescription for metformin. Patient was given diabetic diet instructions. Patient was instructed to follow-up with his primary care physician in 3 to 5 days. Patient understood and was agreeable with the plan. All questions were answered. Past medical history, appointments, medications, allergies reviewed. Previous Medical History No past medical history on file. Previous Surgical History No past surgical history on file. Family History FAMILY HISTORY Problem Relation Age of Onset Hypertension Mother Lipids Mother Patient Allergies ALLERGIES Allergen Reactions Shellfish Derived Rash Current Medications Current Outpatient Medications on File Prior to Visit Medication Sig escitalopram oxalate (LEXAPRO) 20 mg tablet Take 1 tablet by mouth once daily. buPROPion XL (WELLBUTRIN XL) 150 mg 24 hr tablet Take 1 tablet by mouth once daily. metoprolol tartrate, short acting, (LOPRESSOR) 100 mg tablet Take 1 tablet by mouth twice daily. lisinopril (ZESTRIL, PRINIVIL) 20 mg tablet Take 1 tablet by mouth once daily. albuterol HFA (PROVENTIL HFA, VENTOLIN HFA) 90 mcg/actuation inhaler Inhale 2 Puffs as instructed every 6 hours as needed for wheezing/shortness of breath. CPAP Initiate Auto PAP @ 8-14 cm of water with humidification. Mask (per patient preference) optional chin strap (if indicated) , filters, tubing, humidifier and lifetime supplies. No current facility-administered medications on file prior to visit. Social History Social History Tobacco Use Smoking status: Every Day Packs/day: 0.50 Years: 15.00 Pack years: 7.50 Types: Cigarettes Last attempt to quit: 11/08/2008 Years since quittin.5 Smokeless tobacco: Former Types: Chew Tobacco comments: Trying to quit Vaping Use Vaping Use: Never used Substance Use Topics Alcohol use: Yes Alcohol/week: 2.0 standard drinks Types: 2 Cans of beer per week Drug use: No EXAM: BP 130/84 (BP Site: Left Arm, BP Position: Sitting, BP Cuff Size: Large Adult) Pulse 76 Resp 16 Wt 135.4 kg (298 lb 9.6 oz) BMI 45.40 kg/m? General Appearance: Well appearing, alert, in no acute distress, well-hydrated, well nourished. and Morbidly obese. Lungs: Lungs clear to auscultation. No wheezing, rhonchi, rales.. Heart: RRR without murmur, gallop, or rubs. No ectopy. Health M (more content not included)... [facility] 05-25-2022 History of Presen t illness Narrative Chief Complaint ER follow up/Diabetes new diagnosis HPI Erasto Chapman is a 46 year old male who presents here today for ER Follow Up.. Pt presented to [facility] ER on 05/17/22 for abdominal pain, elevated blood sugar and pleural effusion with hypoxia. He was started on Metformin 500 mg 1 pill BID. Glucose level at ER was 552. DM - About two weeks ago noticed that his vision was blurry. Went to [facility], they checked finger stick sugar and sent him to ER. He had been having increased thirst and urination also. Reports improvement in some of the symptoms he was having when he went to the ED. Still has some symptoms but better. No neuropathy symptoms. He did get a home glucometer and is checking sugars 2-3 x per day. FBS ranging from 200-220. He's changing his diet but still craves sugary type drinks. Currently taking Metformin 500 mg bid. No family history of DM. Below copied from [facility]: History of Present Illness Chief Complaint: Hyperglycemia Informant: patient Onset/Context/Timing Onset: Days (5-6) Context: Gradual Onset Timing: Continuous Quality: Blurry vision, polyuria, polydipsia Worsened by: Nothing Relieved by: Nothing Narrative Narrative: Patient presents with elevated blood sugar and blurry vision that has been constant for the past 6 days. Patient states it came on gradually. Patient states it has been waxing and waning. Patient states his vision seemed more blurry today. 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 Patient was then referred to the emergency department. Patient does admit to some polyuria and polydipsia. Patient states nothing makes his symptoms any worse or any better. Patient admits to breaking out into a sweat today. Patient states he has been having some nausea and vomiting. Patient also admits to mild headache. [facility] Narrative Medical decision making narrative: Patient was given IV fluids. CBC shows a mild leukocytosis of 12.5. Basic metabolic profile showed an elevated glucose of 552. Sodium was 122 and chloride was 89. Creatinine was slightly elevated at 1.37. Serum acetone was negative. Repeat GGT was obtained after IV fluids and was 459. Urinalysis shows glucosuria of 1000. Leukocyte esterase was negative. There were 5-10 white blood cells and 1+ bacteria. Urine culture will be obtained. Patient was given a dose of Humalog here. Patient was given a prescription for metformin. Patient was given diabetic diet instructions. Patient was instructed to follow-up with his primary care physician in 3 to 5 days. Patient understood and was agreeable with the plan. All questions were answered. Past medical history, appointments, medications, allergies reviewed. Previous Medical History No past medical history on file. Previous Surgical History No past surgical history on file. Family History FAMILY HISTORY Problem Relation Age of Onset Hypertension Mother Lipids Mother Patient Allergies ALLERGIES Allergen Reactions Shellfish Derived Rash Current Medications Current Outpatient Medications on File Prior to Visit Medication Sig escitalopram oxalate (LEXAPRO) 20 mg tablet Take 1 tablet by mouth once daily. buPROPion XL (WELLBUTRIN XL) 150 mg 24 hr tablet Take 1 tablet by mouth once daily. metoprolol tartrate, short acting, (LOPRESSOR) 100 mg tablet Take 1 tablet by mouth twice daily. lisinopril (ZESTRIL, PRINIVIL) 20 mg tablet Take 1 tablet by mouth once daily. albuterol HFA (PROVENTIL HFA, VENTOLIN HFA) 90 mcg/actuation inhaler Inhale 2 Puffs as instructed every 6 hours as needed for wheezing/shortness of breath. CPAP Initiate Auto PAP @ 8-14 cm of water with humidification. Mask (per patient preference) optional chin strap (if indicated) , filters, tubing, humidifier and lifetime supplies. No current facility-administered medications on file prior to visit. Social History Social History Tobacco Use Smoking status: Every Day Packs/day: 0.50 Years: 15.00 Pack years: 7.50 Types: Cigarettes Last attempt to quit: 11/08/2008 Years since quittin.5 Smokeless tobacco: Former Types: Chew Tobacco comments: Trying to quit Vaping Use Vaping Use: Never used Substance Use Topics Alcohol use: Yes Alcohol/week: 2.0 standard drinks Types: 2 Cans of beer per week Drug use: No EXAM: BP 130/84 (BP Site: Left Arm, BP Position: Sitting, BP Cuff Size: Large Adult) Pulse 76 Resp 16 Wt 135.4 kg (298 lb 9.6 oz) BMI 45.40 kg/m General Appearance: Well appearing, alert, in no acute distress, well-hydrated, well nourished. and Morbidly obese. Lungs: Lungs clear to auscultation. No wheezing, rhonchi, rales.. Heart: RRR without murmur, gallop, or rubs. No ectopy. Health Maintenance List HEPATITIS B(1 of 3 - 3-dose series) Never done PNEUMOCOCCAL(1 - PCV) Never done HEPATITIS C SCREENING Never done HIV SCREENING Never done BP CONTROLLED (<130/80) Never done COVID-19 VACCINE(3 - Booster for Pfizer series) due on 11/27/2020 COLORECTAL CANCER SCREENING Never done ANNUAL PCP TEAM CHRONIC DISEASE VISIT due on 12/23/2021 INFLUENZA(1) due on 02/10/2022 DIABETES SCREEN due on 04/04/2022 LIPID SCREEN due on 04/04/2024 DTAP,TDAP,TD(2 - Td or Tdap) due on 02/14/2028 Data reviewed [facility] ER records from 05/17/22 ASSESSMENT/PLAN: 1. Type 2 diabetes mellitus with hyperglycemia, without long-term current use of insulin (HCC) - ICD9: 250.00, 790.29, ICD10: E11.65 newly diagnosed - Continue current medications - Structured Diabetes Program for education and assistance - CONSULT TO INTM NURSE DIABETES - DIRECTOR OF BLOOD [CONSULT TO SOCIAL WORK] - CONSULT TO DIABETES EDUCATION - CONSULT TO PHARMACY - METFORMIN 500 MG TABLET - COMP METABOLIC PANEL - LIPID PANEL BASIC - HGB A1C Follow up in 1 month with labs prior Medical Decision Making: Problems: Moderate: New problem with uncertain prognosis Data: Unique test(s) ordered: 3+ Risk: Moderate: Drug management Medical Decision Making Level: 4 - Moderate Luiz Savage MD documented in this encounter [facility] 04-27-2022 Miscellaneous Notes Formattin g of this note is different from the original. The following approved medication requests have been transmitted electronically. Requested Prescriptions Pending Prescriptions Disp Refills escitalopram oxalate (LEXAPRO) 20 mg tablet 30 tablet 5 Sig: Take 1 tablet by mouth once daily. buPROPion XL (WELLBUTRIN XL) 150 mg 24 hr tablet 30 tablet 5 Sig: Take 1 tablet by mouth once daily. Manohar Nagel APRN.FLORENCIA Patient phones requesting refills as follows: Requested Prescriptions Pending Prescriptions Disp Refills escitalopram oxalate (LEXAPRO) 20 mg tablet 30 tablet 5 Sig: Take 1 tablet by mouth once daily. buPROPion XL (WELLBUTRIN XL) 150 mg 24 hr tablet 30 tablet 5 Sig: Take 1 tablet by mouth once daily. ИВАН-12/23/20 Labs-10/29/19 NOV-none med filled 10/05/21 Please review and advise. Jamia Teague LPN documented in this encounter [facility] 04-19-2022 Note HNO ID: [id number] Author: Alyssia Tapia Ma Service: ? Author Type: ? Type: Progress Notes Filed: 04/19/2022 11:27 AM Note Text: Pt was contacted, see TE from today, 04/19/22. Closing this encounter. Alyssia Tapia Ma [facility] 04-18-2022 Note HNO ID: [id number] Author: Luiz Savage MD Service: ? Author Type: Physician Type: Progress Notes Filed: 04/19/2022 11:27 AM Note Text: Telephone call from Dr Casanova at [facility] with an update on pt. Renard was recently admitted to [facility] with recurrent rib fractures and pleural effusion. He should have appt for follow up in our office - he needs workup for his recurrent fractures ,and he is to follow up with María Garcia at [facility]. Please try to reach pt again about scheduling follow up. Luiz Savage MD [facility] 04-07-2022 Miscellaneous Notes Formattin g of this note might be different from the original. See pt outreach encounter. Amanda Bright Ma 1st attempt to reach patient for TCM appointment. Unable to reach patient. Left VM to return call to office. Please assist patient with scheduling. Olivia Abdalla MA documented in this encounter [facility] 04-06-2022 Note HNO ID: [id number] Author: Olivia Abdalla MA Service: ? Author Type: Air Conditioning Supervisor Type: Progress Notes Filed: 04/07/2022 11:55 AM Note Text: TRANSITION CARE MANAGEMENT (TCM) INITIAL CONTACT Air Conditioning Supervisor Outreach Provider Action/FYI: No contact made-04/06 VM left to call back Initial contact with patient post discharge, spoke to: N/A-contact not made left message on VM to RCTO to schedule. TRANSITION CARE MANAGEMENT INITIAL OUTREACH DOCUMENTATION: Date of Outreach: 04/06/2022 Date of Discharge 04/04/2022 Some recent data might be hidden SUMMARY: -Pt discharged from [facility] on 04/04/22. -Admitted for: Pleural effusion on right, Hypoxia, Dyspnea Do you have a hospital follow up appointment with your PCP? No. Assist patient with follow-up appointment within 1-14 calendar days from discharge date. If patient prefers not to schedule follow-up appointment at this time, notify PCP. MEDICATIONS: Many patients have questions or concerns about their medications once they are home. Were you prescribed any new medications? No Were you told to hold any medications? No Were any of your medications discontinued? No Do you have any questions about getting or taking your medications? N/A Your discharge instructions/After visit Summary (AVS) are important in guiding you through the recovery process. Is there anything I might help you understand? N/A Do you have all the necessary equipment and supplies at home? N/A Medical records from recent hospitalization: Placed for provider to review [facility] 04-06-2022 History of Presen t illness Narrative TRANSITION CARE MANAGEMENT (TCM) INITIAL CONTACT Air Conditioning Supervisor Outreach Provider Action/FYI: No contact made-04/06 VM left to call back Initial contact with patient post discharge, spoke to: N/A-contact not made left message on VM to RCTO to schedule. TRANSITION CARE MANAGEMENT INITIAL OUTREACH DOCUMENTATION: Date of Outreach: 04/06/2022 Date of Discharge 04/04/2022 Some recent data might be hidden SUMMARY: -Pt discharged from [facility] on 04/04/22. -Admitted for: Pleural effusion on right, Hypoxia, Dyspnea Do you have a hospital follow up appointment with your PCP? No. Assist patient with follow-up appointment within 1-14 calendar days from discharge date. If patient prefers not to schedule follow-up appointment at this time, notify PCP. MEDICATIONS: Many patients have questions or concerns about their medications once they are home. Were you prescribed any new medications? No Were you told to hold any medications? No Were any of your medications discontinued? No Do you have any questions about getting or taking your medications? N/A Your discharge instructions/After visit Summary (AVS) are important in guiding you through the recovery process. Is there anything I might help you understand? N/A Do you have all the necessary equipment and supplies at home? N/A Medical records from recent hospitalization: Placed for provider to review documented in this encounter [facility] 04-06-2022 Note Patient Outreach (FA MPWS) ERASTO CHAPMAN ([id number]) 1975 M Date Time Provider Department 04/06/22 OLIVIA ABDALLA During your visit today, we recorded the following information about you: Olivia Abdalla MA 04/07/2022 11:55 AM Signed TRANSITION CARE MANAGEMENT (TCM) INITIAL CONTACT Air Conditioning Supervisor Outreach Provider Action/FYI: No contact made-04/06 VM left to call back Initial contact with patient post discharge, spoke to: N/A-contact not made left message on VM to RCTO to schedule. TRANSITION CARE MANAGEMENT INITIAL OUTREACH DOCUMENTATION: Date of Outreach: 04/06/2022 Date of Discharge 04/04/2022 Some recent data might be hidden SUMMARY: -Pt discharged from [facility] on 04/04/22. -Admitted for: Pleural effusion on right, Hypoxia, Dyspnea Do you have a hospital follow up appointment with your PCP? No. Assist patient with follow-up appointment within 1-14 calendar days from discharge date. If patient prefers not to schedule follow-up appointment at this time, notify PCP. MEDICATIONS: Many patients have questions or concerns about their medications once they are home. Were you prescribed any new medications? No Were you told to hold any medications? No Were any of your medications discontinued? No Do you have any questions about getting or taking your medications? N/A Your discharge instructions/After visit Summary (AVS) are important in guiding you through the recovery process. Is there anything I might help you understand? N/A Do you have all the necessary equipment and supplies at home? N/A Medical records from recent hospitalization: Placed for provider to review Allergies As of Date: 04/06/2022 Noted Allergy Reaction SHELLFISH DERIVED 07/17/2016 2 - Rash Date Reviewed: 06/22/2021 Reviewed by: Angi Lopez LPN - Fully Assessed Reason for Visit: TCM [facility] D/C 04/04/22 [Other] Prescriptions as of 04/07/2022 - metoprolol tartrate, short acting, (LOPRESSOR) 100 mg tablet Take 1 tablet by mouth twice daily. - lisinopril (ZESTRIL, PRINIVIL) 20 mg tablet Take 1 tablet by mouth once daily. - escitalopram oxalate (LEXAPRO) 20 mg tablet Take 1 tablet by mouth once daily. - buPROPion XL (WELLBUTRIN XL) 150 mg 24 hr tablet Take 1 tablet by mouth once daily. - albuterol HFA (PROVENTIL HFA, VENTOLIN HFA) 90 mcg/actuation inhaler Inhale 2 Puffs as instructed every 6 hours as needed for wheezing/shortness of breath. - CPAP Initiate Auto PAP @ 8-14 cm of water with humidification. Mask (per patient preference) optional chin strap (if indicated) , filters, tubing, humidifier and lifetime supplies. Meds Comments as of 07/24/2014: No Rx, routine otc or Supplement Problem List As Of Date 04/06/2022 Noted Resolved Crushing injury of finger(s) [S67.10XA] 01/09/2009 02/10/2016 Recurrent major depression in partial remission*02/10/2016 Insomnia [G47.00] 02/10/2016 Renal calculi [N20.0] 01/11/2017 Renal cyst [N28.1] 01/11/2017 Smoker [F17.200] 09/05/2018 BILLY (obstructive sleep apnea) [G47.33] 09/05/2018 Essential hypertension [I10] 01/07/2020 Encounter Status:Closed by AMANDA BRIGHT MA on 04/07/22 [facility] documented as of this encounter (statuses as of 04/07/2022) [facility] History of Past illness Narrative* Problem Noted Date Resolved Date Crushing injury of finger(s) 01/09/2009 documented as of this encounter (statuses as of 04/27/2022) [facility] History of Past illness Narrative* Problem Noted Date Resolved Date Crushing injury of finger(s) 01/09/2009 documented as of this encounter (statuses as of 05/25/2022) [facility] History of Past illness Narrative* Problem Noted Date Resolved Date Crushing injury of finger(s) 01/09/2009 documented as of this encounter (statuses as of 05/26/2022) [facility] History of Past illness Narrative* Problem Noted Date Resolved Date Crushing injury of finger(s) 01/09/2009 documented as of this encounter (statuses as of 05/30/2022) [facility] History of Past illness Narrative* Problem Noted Date Resolved Date Crushing injury of finger(s) 01/09/2009 documented as of this encounter (statuses as of 09/06/2022) [facility] History of Past illness Narrative* Problem Noted Date Diagnosed Date Resolved Date Crushing injury of finger(s) 01/09/2009 02/10/2016 documented as of this encounter (statuses as of 12/27/2022) [facility] History of Past illness Narrative* Problem Noted Date Diagnosed Date Resolved Date Crushing injury of finger(s) 01/09/2009 02/10/2016 documented as of this encounter (statuses as of 03/03/2023) [facility] Diagnosis Recurrent major depression in partial remission (HCC) Major depressive disorder, recurrent episode, in partial or unspecified remission [facility] Diagnosis Type 2 diabetes mellitus with hyperglycemia, without long-term current use of insulin (HCC)- Primary [facility] Diagnosis Type 2 diabetes mellitus with hyperglycemia, without long-term current use of insulin (HCC) [facility] Diagnosis Nausea and vomiting, unspecified vomiting type- Primary Abdominal discomfort Abdominal pain, unspecified site [facility] Diagnosis Vertigo- Primary Dizziness and giddiness documented in this encounter [facility] Summary Purpose Family History No Family History Records FoundNo Family History Records Found Advance Directives No Advanced Directives Records FoundNo Advanced Directives Records Found Reason for Referral Specialty Diagnoses / Procedures Referred By Contac t Referred To Contact Diagnoses Type 2 diabetes mellitus with hyperglycemia, without long-term current use of insulin (HCC) Procedures CONSULT TO DIABETES EDUCATION OFFICE/OUTPATIENT NEW HIGH MDM 60-74 MINUTES Luiz Savage MD [address] [place] [address] [facility] [address] [place] [address] Referral ID Status Reason Start Date Expiration Date Visits Requested Visits Authorized [id number] Authorized PCP Requested Referral 2 05/25/2023 1 1 Specialty Diagnoses / Procedures Referred By Contac t Referred To Contact Ent - Otolaryngology Diagnoses Vertigo Procedures CONSULT TO ENT OFFICE/OUTPATIENT [facility] 60-74 MINUTES Manohar Nagel APRN.[employer] STIFFENER [address] [place] [address] Referral ID Status Reason Start Date Expiration Date Visits Requested Visits Authorized [id number] Authorized PCP Requested Referral 03/03/2023 03/02/2024 1 1 Additional Source Comments (unrecognized sect ion and content) No Status Records FoundNo Status Records Found INFORMATION SOURCE (unrecogn ized section and content) DATE CREATED AUTHOR AUTHOR'S ORGANIZ ATION 03/05/2023 [facility] Source Comments (unrecognize d section and content) In the event this informatio n is protected by the Federal Confidentiality of Alcohol and Drug Abuse Patient Records regulations: The Federal rules restrict any use of the information to criminally investigate or prosecute any alcohol or drug abuse patient.[facility] the event this information is protected by the Federal Confidentiality of Alcohol and Drug Abuse Patient Records regulations: The Federal rules restrict any use of the information to criminally investigate or prosecute any alcohol or drug abuse patient.[facility] the event this information is protected by the Federal Confidentiality of Alcohol and Drug Abuse Patient Records regulations: The Federal rules restrict any use of the information to criminally investigate or prosecute any alcohol or drug abuse patient.[facility] the event this information is protected by the Federal Confidentiality of Alcohol and Drug Abuse Patient Records regulations: The Federal rules restrict any use of the information to criminally investigate or prosecute any alcohol or drug abuse patient.[facility] the event this information is protected by the Federal Confidentiality of Alcohol and Drug Abuse Patient Records regulations: The Federal rules restrict any use of the information to criminally investigate or prosecute any alcohol or drug abuse patient.[facility] the event this information is protected by the Federal Confidentiality of Alcohol and Drug Abuse Patient Records regulations: The Federal rules restrict any use of the information to criminally investigate or prosecute any alcohol or drug abuse patient.[facility] the event this information is protected by the Federal Confidentiality of Alcohol and Drug Abuse Patient Records regulations: The Federal rules restrict any use of the information to criminally investigate or prosecute any alcohol or drug abuse patient.[facility] the event this information is protected by the Federal Confidentiality of Alcohol and Drug Abuse Patient Records regulations: The Federal rules restrict any use of the information to criminally investigate or prosecute any alcohol or drug abuse patient.[facility] the event this information is protected by the Federal Confidentiality of Alcohol and Drug Abuse Patient Records regulations: The Federal rules restrict any use of the information to criminally investigate or prosecute any alcohol or drug abuse patient.[facility] Reason for Visit (unrecogniz ed section and content) Reason Onset Date Comments TCM [facility] D/C 04/04/22 04/06/2022 Reason Onset Date Comments Refill Request 04/27/2022 Reason Comments New Primary Care Pharmacy Appt. Reason Comments Appointment Reason Comments Orders Care Teams (unrecognized sec tion and content) Sandblaster Supervisor Relationship Specialty Start Date End Date Luiz Savage MD [address] [place] [address] PCP - General Family Medicine 11/04/14 Sandblaster Supervisor Relationship Specialty Start Date End Date Luiz Savage MD [address] [place] [address] PCP - General Family Medicine 11/04/14 Sandblaster Supervisor Relationship Specialty Start Date End Date Luiz Savage MD [address] [place] [address] PCP - General Family Medicine 11/04/14 Sandblaster Supervisor Relationship Specialty Start Date End Date Luiz Savage MD [address] [place] [address] PCP - General Family Medicine 11/04/14 Sandblaster Supervisor Relationship Specialty Start Date End Date Luiz Savage MD [address] [place] [address] PCP - General Family Medicine 11/04/14 Sandblaster Supervisor Relationship Specialty Start Date End Date Luiz Savage MD [address] [place] [address] PCP - General Family Medicine 11/04/14 Sandblaster Supervisor Relationship Specialty Start Date End Date Liuz Savage MD [address] [place] [address] PCP - General Family Medicine 11/04/14 FOR RECORDS PERTAINING TO PATIENTS WHO ARE OR HAVE BEEN ENROLLED IN A CHEMICAL DEPENDENCY/SUBSTANCEABUSE PROGRAM, SOME INFORMATION MAY BE OMITTED. This clinical summary was aggregated from multiple sources. Caution should be exercised in using it in the provision of clinical care. This summary normalizes information from multiple sources, and as a consequence, information in this document may materially change the coding, format and clinical context of patient data. In addition, data may be omitted in some cases. CLINICAL DECISIONS SHOULD BE BASED ON THE PRIMARY CLINICAL RECORDS. [facility] [facility]. provides no warranty or guarantee of the accuracy or completeness of information in this document.
[2023-07-07 11:04] VITALS: BP 134/77; PULSE 97; RESP 15; O2SAT 97
--- NOTE | 2023-07-07 11:10 | PCM.HP.STD ---
HPI - General General Date of Admission: 07/07/23 Date of Service: 07/07/23 HPI Narrative ERASTO ALMANZAR, is a 47 M who presents [facility] Medical History Depression Diabetes Hypertension Vertigo Home Medications escitalopram oxalate 20 mg tablet 20 mg PO DAILY 10/11/19 [History Last Taken 07/06/23] bupropion HCl 150 mg 24 hr tablet, extended release 150 mg PO DAILY 12/13/19 [History Last Taken 07/07/23] lisinopril 20 mg PO DAILY blood pressure 04/02/22 [History Last Taken 07/06/23] metformin 500 mg tablet 500 mg PO BID #20 tabs 05/17/22 [Rx Last Taken 07/07/23] metoprolol tartrate 100 mg tablet 100 mg PO Q12H 07/07/23 [History Last Taken 07/07/23] Allergy/AdvReac Type Severity Reaction Status Date / Time shellfish derived Allergy Rash Verified 07/07/23 08:27 Family History Other Colon cancer Surgical History no surgical history Social History Smoking Status: Current every day smoker tobacco type: cigarettes Vital Signs Vital Signs Vital Signs: 07/07/23 08:27 07/07/23 09:11 07/07/23 11:04 Temperature 95 F L Temperature Source Temporal Pulse Rate 59 L 97 Respiratory Rate 16 15 Respiratory Effort Normal Non-Labored Respiratory Pattern Normal Blood Pressure 115/70 134/77 H Blood Pressure Mean 85 96 Pulse Ox 98 97 Oxygen Delivery Method Room Air Weight Weight: 234 lb 3.2 oz Body Mass Index (BMI) 35.6 Results Lab / Micro Data 07/07/23 08:55 07/07/23 08:55 Labs: Laboratory Results - last 24 hr 07/07/23 08:55: WBC 9.7, RBC 5.04, Hgb 15.1, Hct 43.3, MCV 85.9, MCH 30.0, MCHC 34.9, RDW Std Deviation 37.0, RDW Coeff of Kassidy 11.9, Plt Count 251, MPV 11.2, Immature Gran % (Auto) 0.700, Neut % (Auto) 67.8, Lymph % (Auto) 19.4, [place] % (Auto) 8.9, Eos % (Auto) 2.1, Baso % (Auto) 1.1 H, Absolute Neuts (auto) 6.6, Absolute Lymphs (auto) 1.88, Nucleated RBC % 0, Sodium 128 L, Potassium 3.9, Chloride 97 L, Carbon Dioxide 17.0 L, Anion Gap 14, BUN 16, Creatinine 0.84, Estim Creat Clear Calc 129.83, Est GFR (MDRD) Af Amer 126, Est GFR (MDRD) Non-Af 104, BUN/Creatinine Ratio 19.0, Glucose 392 H, Calcium 8.6 07/07/23 09:09: Urine Color Yellow, Urine Clarity Clear, Urine pH 5.0, Ur Specific Irving 1.020, Urine Protein 15 H, Urine Glucose (UA) 1000 H, Urine Ketones 150 A*, Urine Occult Blood 25 H, Urine Nitrite Negative, Urine Bilirubin Negative, Urine Urobilinogen Normal, Ur Leukocyte Esterase Negative, Urine RBC 0-5 SEEN, Urine WBC 0 SEEN, Ur Squamous Epith Cells 0-5 SEEN, Urine Bacteria 0 SEEN, Urine Mucus 0 SEEN 07/07/23 09:50: Acetone Level MODERATE H
--- NOTE | 2023-07-07 11:28 | ED.RN ---
THIS RN WALKED DOWN BACK HALLWAY TO PATIENT STANDING OUTSIDE HIS ROOM FULLY DRESSED AND ASKING TO HAVE THE IV TAKEN OUT SO HE COULD LEAVE. PT STATES HE DOES NOT WANT TO STAY. THIS RN REMOVED IV AND PT AMBULATED WITH FEMALE VISITOR OUT OF DEPARTMENT IN NO DISTRESS. DR. CARDONA NOTIFIED
--- NOTE | 2023-07-07 11:37 | PCM.HOSP.N ---
Hospitalist Note Patient signed AMA from ED shortly after called by ER for DKA admission.
--- OUTSIDE RECORDS SUMMARY | 2023-07-07 11:52 | XMS RPT_ITS | CCD ---
Author Name Unknown Address [address] [place] [address] Organization [facility] Care Team Providers Care Vocational Placement Specialist Name Role Phone Luiz Savage MD Primary Care Provider LUIZ SAVAGE Primary Care Unavailable LUIZ SAVAGE Attending Unavailable LUIZ SAVAGE Primary Care Unavailable Allergies Allergy Classification Reported Allergen(s) Allergy Type Date of Onset Reaction(s) Facility (10 sources) Shellfish; Translations: [SHELLFISH DERIVED] Drug Allergy 07-17-2016 [facility] Medications Completed/Discontinued Medications Medication Drug Class(es) Dates Sig (Normalized) Sig (Original) [id number] 200 actuat albuterol 0.09 mg/actuat metered dose [...] 135.44 kg Luiz Savage MD Work Phone: [facility] 05-25-2022 17:50-0500 Diastolic blood pressure 84 mm[Hg] Luiz Savage MD Work Phone: [facility] 05-25-2022 17:50-0500 Heart rate 76 /min Luiz Savage MD Work Phone: [facility] 05-25-2022 17:50-0500 Respiratory rate 16 /min Luiz Savage MD Work Phone: [facility] 05-25-2022 17:50-0500 Systolic blood pressure 130 mm[Hg] Luiz Savage MD Work Phone: [facility] Encounters Encounter Date Encounter Type Care Provider Facility Start: 03-02-2023 Telephone encounter Nuzhat [address] Procedures Date Procedure Procedure Detail Performing Clinician Start: 04-04-2019 Lipid 1996 panel - S pat or Plasma Nuzhat [facility] Plan of Treatment Date Care Activity Detail Author Start: 02-14-2028 Urine microalbumin profile [facility] Start: 04-04-2024 Lipid 1996 panel - S pat or Plasma Lipid Screening [facility] Start: 04-04-2024 LIPID SCREEN LIPID SCREEN [facility] Start: 05-25-2023 ANNUAL PCP TEAM BUSINESS CENTER ATTENDANT JOSE F DISEASE VISIT ANNUAL PCP TEAM CHRONIC DISEASE VISIT [facility] Start: 02-10-2023 Influenza vaccination [facility] Start: 06-25-2022 End: 08-25-2022 Comprehensive metabolic 2000 panel - Serum or Plasma COMP METABOLIC PANEL Lab Routine Type 2 diabetes mellitus with hyperglycemia, without long-term current use of insulin (HCC) Expected: 06/25/2022 (Approximate), Expires: 08/25/2022 [facility] Work Phone: Immunizations Immunization Date Immunization Notes Care Provider Delmar saleh 10-02-2020 COVID-19 original vaccine, age 12+ yr, monovalent (PFIZER-BIONTECH - PURPLE TOP) Luiz Savage MD Work Phone: [facility] 09-11-2020 COVID-19 original vaccine, age 12+ yr, monovalent (PFIZER-BIONTECH - PURPLE TOP) Luiz Savage MD Work Phone: [facility] 03-12-2020 influenza, seasonal, injectable Luiz Savage MD Work Phone: [facility] 03-12-2020 influenza virus vaccine, unspecified formulation Nuzhat [facility]ure[facility] 03-26-2019 influenza, seasonal, injectable Luiz Savage MD Work Phone: [facility] 04-12-2018 influenza, seasonal, injectable Luiz Savage MD Work Phone: [facility] 02-13-2018 tetanus toxoid, redu kelli diphtheria toxoid, and acellular pertussis vaccine, adsorbed Luiz Savage MD Work Phone: [facility] Payers Date Payer Category Payer Private Health Insurance [facility] [id number] 2018-Present [phone] [address] [address] [place] [address] [facility] [id number] 2018 Unknown [id number] Social History Date Type Detail Facility Start: 12-23-2020 End: 05-25-2022 Tobacco smoking status NHIS Smokes tobacco daily [facility] End: 11-08-2008 History of tobacco use Cigarette Smoker [facility] Start: 12-23-2020 End: 06-28-2022 Cigarettes smoked current (pack per day) - Reported 0.5 [facility] Start: 12-23-2020 End: 05-25-2022 Tobacco use and exposure Former smokeless tobacco user [facility] History of tobacco use Chews Tobacco [facility] Start: 06-22-2021 End: 05-25-2022 Alcohol intake Current drinker of alcohol (finding) [facility] Start: 12-21-2020 End: 05-23-2022 History SDOH Alcohol Frequency 3 [facility] Start: 12-21-2020 End: 05-23-2022 History SDOH Alcohol Std Drinks 2 [facility] Start: 12-21-2020 End: 05-23-2022 History SDOH Social Connections Get Together 1 [facility] Start: 12-21-2020 End: 05-23-2022 History SDOH Social Connections Living 5 [facility] Start: 12-21-2020 History SDOH Stress 4 [facility] Start: 12-21-2020 Education 12 [facility] Start: 04-04-2019 End: 05-25-2022 Tobacco Comment Trying to quit [facility] Start: 1975 Sex Assigned At Male [facility] Start: 05-23-2022 History SDOH Social Connections Phone 98 [facility] Start: 05-23-2022 End: 06-28-2022 Social connection and isolation panel [facility] In a typical week, h ow many times do you talk on the telephone with family, friends, or neighbors? Patient refused [facility] Do you belong to any clubs or organizations such as sikh groups, unions, fraternal or athletic groups, or school groups? No [facility] Are you now , , , , never or living with a partner? [facility] How often to you hav e a drink containing alcohol? 2-4 times a month [facility] How many standard dr inks containing alcohol do you have on a typical day? 3 or 4 [facility] How often do you hav e 6 or more drinks on 1 occasion? Less than monthly [facility] Do you feel stress - tense, restless, nervous, or anxious, or unable to sleep at night because your mind is troubled all the time - these days [OSQ] Only a little [facility] (I/We) worried an er (my/our) food would run out before (I/we) got money to buy more. Never true [facility] Start: 12-18-2020 Gender identity Identifies as male gender (finding) [facility] Clinical Notes 01-09-2009 to 03-03-2023 Telephone Encounter [...] Can go to my [facility] at [facility] or go to [facility] which [...] 2023 8:55 AM documented in this encounter [facility] 12-27-2022 Note HNO ID: [id number] Author: Juno Chamorro APRN.FAMILY DAY CARER Service: ? Author Type: Nurse Practitioner Type: Progress Notes Filed: 12/27/2022 11:49 AM Note Text: Patient triaged at [facility] care, here for abdominal discomfort, profuse vomiting, high blood sugar. Patient sweating diffusely and vomiting during triage. I recommend ER, patient declines squad, coworker to drive pov to [facility]. [facility] 12-27-2022 History of Presen t illness Narrative Patient triaged at [facility], here for abdominal discomfort, profuse vomiting, high blood sugar. Patient sweating diffusely and vomiting during triage. I recommend ER, patient declines squad, coworker to drive pov to [facility]. documented in this encounter [facility] 09-05-2022 Miscellaneous Notes Formattin g of this note might be different from the original. Pt was d/c from ED with Metformin 500 mg bid. Rx written on med list is for once daily. Please advise. Alyssia Tapia Ma documented in this encounter [facility] 05-30-2022 Miscellaneous Notes Formattin g of this [...] Alyssia Tapia Ma documented in this encounter [facility] 05-26-2022 Miscellaneous Notes Formattin g of this note might be different from the original. Telephoned the patient to schedule a new Primary Care pharmacy appt. Left a message. documented in this encounter [facility] 05-25-2022 Note HNO ID: [id number] Author: Luiz Savage MD Service: ? Author Type: Physician Type: Progress Notes Filed: 05/25/2022 6:53 PM Note Text: Chief Complaint ER follow up/Diabetes new diagnosis HPI Erasto Chapman is a 46 year old male who presents here today for ER Follow Up.. Pt presented to [facility] ER on 05/17/22 for abdominal pain, elevated [...] family history of DM. Below copied from [facility] Meiyou: History of Present Illness Chief Complaint: Hyperglycemia [...] blurry today. 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 Patient also admits to mild headache. [facility] Narrative Medical decision making narrative: Patient [...] ectopy. Health M (more content not included)... [facility] 05-25-2022 History of Presen t illness Narrative Chief Complaint ER follow up/Diabetes new diagnosis HPI Erasto Chapman is a 46 year old male who presents here today for ER Follow Up.. Pt presented to [facility] ER on 05/17/22 for abdominal pain, elevated [...] family history of DM. Below copied from [facility]: History of Present Illness Chief Complaint: Hyperglycemia [...] blurry today. 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 Patient also admits to mild headache. [facility] Narrative Medical decision making narrative: Patient [...] or Tdap) due on 02/14/2028 Data reviewed [facility] ER records from 05/17/22 ASSESSMENT/PLAN: 1. Type 2 diabetes mellitus with hyperglycemia, without long-term current use of insulin (HCC) - ICD9: 250.00, 790.29, ICD10: E11.65 newly diagnosed - Continue current medications - Structured Diabetes Program for education and assistance - CONSULT TO [facility] NURSE DIABETES - TECHNICAL SALES CONSULTANT [CONSULT TO SOCIAL WORK] - CONSULT TO [...] Luiz Savage MD documented in this encounter [facility] 04-27-2022 Miscellaneous Notes Formattin g of this [...] Jamia Teague LPN documented in this encounter [facility] 04-19-2022 Note HNO ID: [id number] Author: Alyssia Tapia Ma Service: ? Author Type: ? Type: Progress Notes Filed: 04/19/2022 11:27 AM Note Text: Pt was contacted, see TE from today, 04/19/22. Closing this encounter. Alyssia Tapia Ma [facility] 04-18-2022 Note HNO ID: [id number] Author: Luiz Savage MD Service: ? Author Type: Physician Type: Progress Notes Filed: 04/19/2022 11:27 AM Note Text: Telephone call from Dr Casanova at [facility] with an update on pt. Renard was recently admitted to [facility] with recurrent rib fractures and pleural effusion. He should have appt for follow up in our office - he needs workup for his recurrent fractures ,and he is to follow up with María Garcia at [facility]. Please try to reach pt again about scheduling follow up. Luiz Savage MD [facility] 04-07-2022 Miscellaneous Notes Formattin g of this note might be different from the original. See pt outreach encounter. Amanda Bright Ma 1st attempt to reach patient for TCM appointment. Unable to reach patient. Left VM to return call to office. Please assist patient with scheduling. Olivia Abdalla MA documented in this encounter [facility] 04-06-2022 Note HNO ID: [id number] Author: Olivia Abdalla MA Service: ? Author Type: Psychologist Military Personnel Type: Progress Notes Filed: 04/07/2022 11:55 AM Note Text: TRANSITION CARE MANAGEMENT (TCM) INITIAL CONTACT Psychologist [employer] Person[employer] Outreach Provider Action/FYI: No contact made-04/06 VM left to call back Initial contact with patient post discharge, spoke to: N/A-contact not made left message on VM to [facility]O to schedule. TRANSITION CARE MANAGEMENT INITIAL OUTREACH DOCUMENTATION: Date of Outreach: 04/06/2022 Date of Discharge 04/04/2022 Some recent data might be hidden SUMMARY: -Pt discharged from [facility] on 04/04/22. -Admitted for: Pleural effusion on [...] recent hospitalization: Placed for provider to review [facility] 04-06-2022 History of Presen t illness Narrative TRANSITION CARE MANAGEMENT (TCM) INITIAL CONTACT Psychologist Military Person[employer] Outreach Provider Action/FYI: No contact made-04/06 VM left to call back Initial contact with patient post discharge, spoke to: N/A-contact not made left message on VM to [facility]O to schedule. TRANSITION CARE MANAGEMENT INITIAL OUTREACH DOCUMENTATION: Date of Outreach: 04/06/2022 Date of Discharge 04/04/2022 Some recent data might be hidden SUMMARY: -Pt discharged from [facility] on 04/04/22. -Admitted for: Pleural effusion on [...] provider to review documented in this encounter [facility] 04-06-2022 Note Patient Outreach (FA MPWS) ERASTO CHAPMAN ([id number]) 1975 M Date Time Provider Department 04/06/22 OLIVIA ABDALLA During your visit today, we recorded the following information about you: Olivia Abdalla MA 04/07/2022 11:55 AM Signed TRANSITION CARE MANAGEMENT (TCM) INITIAL CONTACT Psychologist Military Person[employer] Outreach Provider Action/FYI: No contact made-04/06 VM left to call back Initial contact with patient post discharge, spoke to: N/A-contact not made left message on VM to [facility]O to schedule. TRANSITION CARE MANAGEMENT INITIAL OUTREACH DOCUMENTATION: Date of Outreach: 04/06/2022 Date of Discharge 04/04/2022 Some recent data might be hidden SUMMARY: -Pt discharged from [facility] on 04/04/22. -Admitted for: Pleural effusion on [...] - Fully Assessed Reason for Visit: TCM [facility] D/C 04/04/22 [Other] Prescriptions as of 04/07/2022 [...] Status:Closed by AMANDA BRIGHT MA on 04/07/22 [facility] documented as of this encounter (statuses as of 04/07/2022) [facility]07-31-2009 History of Past illness Narrative* Problem Noted Date Resolved Date Crushing injury of finger(s) 01/09/2009 documented as of this encounter (statuses as of 04/27/2022) [facility] History of Past illness Narrative* Problem Noted Date Resolved Date Crushing injury of finger(s) 01/09/2009 documented as of this encounter (statuses as of 05/25/2022) [facility] History of Past illness Narrative* Problem Noted Date Resolved Date Crushing injury of finger(s) 01/09/2009 documented as of this encounter (statuses as of 05/26/2022) [facility] History of Past illness Narrative* Problem Noted Date Resolved Date Crushing injury of finger(s) 01/09/2009 documented as of this encounter (statuses as of 05/30/2022) [facility] History of Past illness Narrative* Problem Noted Date Resolved Date Crushing injury of finger(s) 01/09/2009 documented as of this encounter (statuses as of 09/06/2022) [facility] History of Past illness Narrative* Problem Noted Date Diagnosed Date Resolved Date Crushing injury of finger(s) 01/09/2009 02/10/2016 documented as of this encounter (statuses as of 12/27/2022) [facility] History of Past illness Narrative* Problem Noted Date Diagnosed Date Resolved Date Crushing injury of finger(s) 01/09/2009 02/10/2016 documented as of this encounter (statuses as of 03/03/2023) [facility] Diagnosis Recurrent major depression in partial remission (HCC) Major depressive disorder, recurrent episode, in partial or unspecified remission documented [facility] encounter [facility] Diagnosis Type 2 diabetes mellitus with hyperglycemia, without long-term current use of insulin (HCC)- Primary documented [facility] Diagnosis Type 2 diabetes mellitus with hyperglycemia, without long-term current use of insulin (HCC) documented [facility] Diagnosis Nausea and vomiting, unspecified vomiting type- Primary Abdominal discomfort Abdominal pain, unspecified site [facility] Diagnosis Vertigo- Primary Dizziness and giddiness documented in this encounter [facility] Summary Purpose Family History No Family History [...] MDM 60-74 MINUTES Luiz Savage MD [address] [place] [address] [facility] [address] [place] [address] Referral ID Status Reason Start Date Expiration Date Visits Requested Visits Authorized [id number] Authorized PCP Requested Referral 2 05/25/2023 1 1 Specialty Diagnoses / Procedures Referred By Contac t Referred To Contact Ent - Otolaryngology Diagnoses Vertigo Procedures CONSULT TO ENT OFFICE/OUTPATIENT [facility] 60-74 MINUTES Manohar Nagel APRN.FAMILY DAY CARER [address] [place] [address] Referral ID Status Reason Start Date Expiration Date Visits Requested Visits Authorized [id number] Authorized PCP Requested Referral 03/03/2023 03/02/2024 1 1 Additional Source Comments (unrecognized sect ion and content) No Status Records FoundNo Status Records Found INFORMATION SOURCE (unrecogn ized section and content) DATE CREATED AUTHOR AUTHOR'S ORGANIZ ATION 03/05/2023 [facility] Source Comments (unrecognize d section and content) In the event this informatio n is protected by the Federal Confidentiality of Alcohol and Drug Abuse Patient Records regulations: The Federal rules restrict any use of the information to criminally investigate or prosecute any alcohol or drug abuse patient.[facility] the event this information is protected by the Federal Confidentiality of Alcohol and Drug Abuse Patient Records regulations: The Federal rules restrict any use of the information to criminally investigate or prosecute any alcohol or drug abuse patient.[facility] the event this information is protected by the Federal Confidentiality of Alcohol and Drug Abuse Patient Records regulations: The Federal rules restrict any use of the information to criminally investigate or prosecute any alcohol or drug abuse patient.[facility] the event this information is protected by the Federal Confidentiality of Alcohol and Drug Abuse Patient Records regulations: The Federal rules restrict any use of the information to criminally investigate or prosecute any alcohol or drug abuse patient.[facility] the event this information is protected by the Federal Confidentiality of Alcohol and Drug Abuse Patient Records regulations: The Federal rules restrict any use of the information to criminally investigate or prosecute any alcohol or drug abuse patient.[facility] the event this information is protected by the Federal Confidentiality of Alcohol and Drug Abuse Patient Records regulations: The Federal rules restrict any use of the information to criminally investigate or prosecute any alcohol or drug abuse patient.[facility] the event this information is protected by the Federal Confidentiality of Alcohol and Drug Abuse Patient Records regulations: The Federal rules restrict any use of the information to criminally investigate or prosecute any alcohol or drug abuse patient.[facility] the event this information is protected by the Federal Confidentiality of Alcohol and Drug Abuse Patient Records regulations: The Federal rules restrict any use of the information to criminally investigate or prosecute any alcohol or drug abuse patient.[facility] North[facility] the event this information is protected by the Federal Confidentiality of Alcohol and Drug Abuse Patient Records regulations: The Federal rules restrict any use of the information to criminally investigate or prosecute any alcohol or drug abuse patient.[facility] Reason for Visit (unrecogniz ed section and content) Reason Onset Date Comments TCM [facility] D/C 04/04/22 04/06/2022 Reason Onset Date Comments Refill Request 04/27/2022 Reason Comments New Primary Care Pharmacy Appt. Reason Comments Appointment Reason Comments Orders Care Teams (unrecognized sec tion and content) Vocational Placement Specialist Relationship Specialty Start Date End Date Luiz Savage MD [address] [facility] [place] [address] PCP - General Family Medicine 11/04/14 Vocational Placement Specialist Relationship Specialty Start Date End Date Luiz Savage MD [address] [facility] [place] [address] PCP - General Family Medicine 11/04/14 Vocational Placement Specialist Relationship Specialty Start Date End Date Luiz Savage MD [address] [facility] [place] [address] PCP - General Family Medicine 11/04/14 Vocational Placement Specialist Relationship Specialty Start Date End Date Luiz Savage MD [address] [facility] [place] [address] PCP - General Family Medicine 11/04/14 Vocational Placement Specialist Relationship Specialty Start Date End Date Luiz Savage MD [address] [facility] [place] [address] PCP - General Family Medicine 11/04/14 Vocational Placement Specialist Relationship Specialty Start Date End Date Luiz Savage MD [address] [facility] [place] [address] PCP - General Family Medicine 11/04/14 Vocational Placement Specialist Relationship Specialty Start Date End Date Luiz Savage MD [address] [facility] [place] [address] PCP - General Family Medicine 11/04/14 FOR [...] BE BASED ON THE PRIMARY CLINICAL RECORDS. [facility] [employer] [facility]. provides no warranty or guarantee of the accuracy or completeness of information in this document.
[2023-07-07 11:56] LABS: AST(SGOT) 25 U/L (15-37); Alanine Aminotransfer ALT/SGPT 41 U/L (16-61); Albumin, Serum 3.1 g/dL (3.2-5.0); Alkaline Phosphatase 117 U/L (45-117); Bilirubin, Direct 0.07 mg/dL (0.00-0.30); Globulin 3.7 g/dL (2.2-4.2); Magnesium 1.9 mg/dL (1.6-2.6); Phosphorus 2.5 mg/dL (2.5-4.9); Protein, Total 6.8 g/dL (6.4-8.2)
[2023-07-07 12:14] LABS: Osmolality, Serum 294 mOsm/KG (275-295)
== END 2023-07-07 11:40 | disposition left against medical advice (07) ==
PROVIDERS: Internal Medicine; Emergency Provider Emergency Medicine; PCP Family Medicine; Visit Provider Emergency Medicine
DX: E11.10 Type 2 diabetes mellitus with ketoacidosis without coma (principal); Z79.4 Long term (current) use of insulin; E87.6 Hypokalemia; F17.210 Nicotine dependence, cigarettes, uncomplicated; F32.A Depression, unspecified; I10 Essential (primary) hypertension; E66.9 Obesity, unspecified; Z79.899 Other long term (current) drug therapy; Z79.84 Long term (current) use of oral hypoglycemic drugs
CPT/HCPCS: 80048; 80076; 81001; 82009; 83735; 83930; 84100; 85025; 99283; A4216

== ENCOUNTER 2023-07-07 13:35 | Emergency (ER) | payer OTHER, SELFPAY ==
[2023-07-07 13:36] VITALS: BP 138/84; PULSE 69; RESP 15; TEMP 36.2; O2SAT 96; BMI 36.0
--- NOTE | 2023-07-07 13:59 | EDS_ITS ---
HPI History of Present Illness Chief Complaint: Hyperglycemia Informant: patient Onset/Context/Timing Onset: Days (3) Context: Gradual Onset Timing: Continuous Quality: Hyperglycemia Location: Generalized Worsened by: Nothing Relieved by: Nothing Narrative Narrative: Patient presents with elevated blood sugar that has been getting worse over the past 3 days. Patient was seen here earlier today and was diagnosed with DKA. Patient did not want to stay at that time. Patient left AGAINST MEDICAL ADVICE. Patient states he went to his primary care physician's office and was told to come back to the hospital for admission. Patient denies any new symptoms. Patient denies any fevers or chills. Patient denies any nausea or vomiting. [facility] Medical History Depression Diabetes Hypertension Vertigo Home Medications escitalopram oxalate 20 mg tablet 20 mg PO DAILY 10/11/19 [History Last Taken 07/07/23] bupropion HCl 150 mg 24 hr tablet, extended release 150 mg PO DAILY 12/13/19 [History Last Taken 07/07/23] lisinopril 20 mg PO DAILY blood pressure 04/02/22 [History Last Taken 07/07/23] metformin 500 mg tablet 500 mg PO BID #20 tabs 05/17/22 [Rx Last Taken 07/07/23] insulin aspart (niacinamide)(U-100) 100 unit/mL(3 mL) subcutaneous pen (Fiasp FlexTouch U-100 Insulin) 10 unit subcut BID #6 mL 07/07/23 [Rx Last Taken Unknown] metoprolol tartrate 100 mg tablet 100 mg PO Q12H 07/07/23 [History Last Taken 07/07/23] Allergy/AdvReac Type Severity Reaction Status Date / Time shellfish derived Allergy Rash Verified 07/07/23 08:27 Family History Other Colon cancer Surgical History no surgical history no surgical history Social History Smoking Status: Current every day smoker tobacco type: cigarettes ROS ROS ED Constitutional Constitutional ED: Reports chills and subjective; Denies fever(s) Eyes Eyes: Denies blurry vision or change in vision ENT ENT ED: Denies rhinorrhea or sore throat Cardiovascular Cardiovascular: Denies chest pain or palpitations Respiratory/Chest Respiratory/Chest: Denies cough or dyspnea Gastrointestinal Gastrointestinal: Denies nausea or vomiting Genitourinary Genitourinary ED: Denies dysuria or hematuria Musculoskeletal Musculoskeletal: Denies back pain or neck pain Integumentary Reports rash; Denies abscess Neurologic Neurologic: Denies headache(s) or weakness Allergic/Immunologic Allergic/Immunologic ED: Denies mouth swelling or urticaria EXAM Physical Exam Const Vital Signs: 07/07/23 13:36 07/07/23 14:57 Temperature 97.2 F L Temperature Source Temporal Pulse Rate 69 Respiratory Rate 15 Respiratory Effort Normal Blood Pressure 138/84 H Blood Pressure Mean 102 Pulse Ox 96 Oxygen Delivery Method Room Air Positive well nourished, well developed and obese General Appearance ED: well developed and NAD Nutritional Appearance: obese HEENT Reports moist mucous membranes Neck supple and no JVD Resp normal respiratory effort and clear to auscultation bilaterally Cardio regular rate and regular rhythm GI non-tender Palpation: soft Neuro oriented x3, CN's II-XII intact bilaterally and no sensory deficits noted Sensorium / Orientation: alert Motor Exam: strength 5/5 throughout Psych mental status grossly normal MDM MDM MDM Narrative Medical decision making narrative: Patient was diagnosed earlier today with DKA. Patient is willing to be admitted at this time. Patient will be given IV fluids and started on IV insulin. Repeat CBC and basic metabolic profile will be obtained to assess for leukocytosis, hyperglycemia, electrolyte abnormality, and renal function. Lab Data Attestation: I reviewed the patient's lab results. Lab results narrative: CBC was reviewed and was within normal limits. Basic metabolic profile was reviewed. Glucose was elevated at 498. Anion gap was normal at 11. CO2 was normal at 22. These were improved from previous results. Labs: Laboratory Results - last 24 hr 07/07/23 14:07 WBC 10.5 RBC 5.10 Hgb 15.0 Hct 43.4 MCV 85.1 MCH 29.4 MCHC 34.6 RDW Std Deviation 36.0 RDW Coeff of [place] 11.8 Plt Count 248 MPV 11.1 Immature Gran % (Auto) 0.900 Neut % (Auto) 65.3 Lymph % (Auto) 21.9 [place] % (Auto) 8.9 Eos % (Auto) 2.1 Baso % (Auto) 0.9 Absolute Neuts (auto) 6.9 Absolute Lymphs (auto) 2.29 Nucleated RBC % 0 Sodium 131 L Potassium 3.7 Chloride 98 Carbon Dioxide 22.0 Anion Gap 11 BUN 14 Creatinine 0.89 Estim Creat Clear Calc 123.28 Est GFR (MDRD) Af Amer 118 Est GFR (MDRD) Non-Af 97 BUN/Creatinine Ratio 15.7 Glucose 498 H* Calcium 8.7 Triglycerides 716 H Cholesterol 268 H LDL Cholesterol TNP VLDL Cholesterol TNP HDL Cholesterol 37 L TSH 2.27 Management Discussion w/another healthcare provider: Hospitalist Treatment and Re-Evaluation :: Patient was given IV fluids. Patient was given subcu insulin. Patient's repeat BGT was 392. Patient is feeling better. Patient was given a prescription for Humalog to take with meals twice daily. Patient was given signs and symptoms which should prompt return to the emergency department. Patient understood and was agreeable with the plan. All questions were answered. Discharge Plan Triage Chief Complaint: Hyperglycemia ED Provider: Fred Stahl Dx/Rx/DC Orders Clinical Impression: Diabetic ketoacidosis, Hypokalemia Instructions: ED Diabetic Hyperglycemia Prescriptions: New Fiasp FlexTouch U-100 Insulin 100 unit/mL (3 mL) insulin pen 10 unit subcut BID Qty: 6 0RF No Action escitalopram oxalate 20 MG tablet 20 mg PO DAILY bupropion HCl 150 MG tablet extended release 24 hr 150 mg PO DAILY lisinopril 20 mg tablet 20 mg PO DAILY metformin 500 mg tablet 500 mg PO BID Qty: 20 0RF metoprolol tartrate 100 mg tablet 100 mg PO Q12H Primary Care Provider: Roni Luke Referrals: Roni Luke MD [Primary Care Provider] - Disposition Disposition: Home, Self Care
[2023-07-07 14:14] LABS: Absolute Lymphocyte Count 2.29 X10^3/uL (0.83-4.51); Absolute Neutrophil Count 6.9 X10^3/uL (2.0-7.7); Basophil# 0.09 X10^3/uL; Basophil% 0.9 % (0-1); Eosinophil# 0.22 X10^3/uL; Eosinophils% 2.1 % (0-5); Hematocrit 43.4 % (40-54); Lymphocyte # 2.29 X10^3/ul (0.83-4.51); Lymphocyte % 21.9 % (19-41); Mean Corp Hgb Conc 34.6 g/dL (32-36); Mean Corpuscular Hgb 29.4 pg (27.0-32.0); Mean Corpuscular Volume 85.1 fL (80-94); Mean Platelet Vol. 11.1 fl (6.2-12.0); Monocyte# 0.93 X10^3/uL; Monocyte% 8.9 % (0-10); NRBC Flagged by Analyzer 0 % (0-5); Neutrophil # 6.85 X10^3/uL (2.7-7.7); Neutrophil % 65.3 % (47-70); Platelet Count 248 K/mm3 (150-450); RBC Distribution Width CV 11.8 % (11.6-14.6); White Blood Count 10.5 K/mm3 (4.4-11.0)
--- NOTE | 2023-07-07 14:18 | HP.PCM.HOS_ITS ---
HPI - General HPI Narrative ERASTO ALMANZAR, is a 47 M who presents [facility] Medical History Depression Diabetes Hypertension Vertigo Home Medications escitalopram oxalate 20 mg tablet 20 mg PO DAILY 10/11/19 [History Last Taken 07/07/23] bupropion HCl 150 mg 24 hr tablet, extended release 150 mg PO DAILY 12/13/19 [History Last Taken 07/07/23] lisinopril 20 mg PO DAILY blood pressure 04/02/22 [History Last Taken 07/07/23] metformin 500 mg tablet 500 mg PO BID #20 tabs 05/17/22 [Rx Last Taken 07/07/23] metoprolol tartrate 100 mg tablet 100 mg PO Q12H 07/07/23 [History Last Taken 07/07/23] Allergy/AdvReac Type Severity Reaction Status Date / Time shellfish derived Allergy Rash Verified 07/07/23 08:27 Family History Other Colon cancer Surgical History no surgical history Social History Smoking Status: Current every day smoker tobacco type: cigarettes Vital Signs Vital Signs Vital Signs: 07/07/23 13:36 Temperature 97.2 F L Temperature Source Temporal Pulse Rate 69 Respiratory Rate 15 Blood Pressure 138/84 H Blood Pressure Mean 102 Pulse Ox 96 Oxygen Delivery Method Room Air Weight Weight: 107.501 kg Body Mass Index (BMI) 36.0 Results Lab / Micro Data 07/07/23 14:07 07/07/23 14:07 Labs: Laboratory Results - last 24 hr 07/07/23 14:07: WBC 10.5, RBC 5.10, Hgb 15.0, Hct 43.4, MCV 85.1, MCH 29.4, MCHC 34.6, RDW Std Deviation 36.0, RDW Coeff of [place] 11.8, Plt Count 248, MPV 11.1, Immature Gran % (Auto) 0.900, Neut % (Auto) 65.3, Lymph % (Auto) 21.9, [place] % (Auto) 8.9, Eos % (Auto) 2.1, Baso % (Auto) 0.9, Absolute Neuts (auto) 6.9, Absolute Lymphs (auto) 2.29, Nucleated RBC % 0 Assessment & Plan Assessment/Plan PLAN: Plan DKA, type 2 DM
[2023-07-07 14:29] LABS: Anion Gap 11 (5-15); BUN 14 mg/dL (7-18); BUN/Creat Ratio 15.7 RATIO (10-20); Calcium,Total 8.7 mg/dL (8.5-10.1); Chloride 98 mmol/L (98-107); Creatinine, Serum 0.89 mg/dL (0.70-1.30); EST Glomerular Filtration Rate 97 mL/min (>60); Est Glom Filt Rate - Afr Amer 118 mL/min (>60); Estimated Creatinine Clearance 123.28 ml/min; Glucose 498 mg/dL (74-106); Potassium 3.7 mmol/L (3.5-5.1); Sodium Level 131 mmol/L (136-145)
--- OUTSIDE RECORDS SUMMARY | 2023-07-07 14:34 | XMS RPT_ITS | CCD ---
Author Name Unknown Address [address] [place] [address] Organization [facility] Care Team Providers Care Tar Worker Name Role Phone Luiz Savage MD Primary Care Provider LUIZ SAVAGE Primary Care Unavailable LUIZ SAVAGE Attending Unavailable LUIZ SAVAGE Primary Care Unavailable Allergies Allergy Classification Reported Allergen(s) Allergy Type Date of Onset Reaction(s) Facility (10 sources) Shellfish; Translations: [SHELLFISH DERIVED] Drug Allergy 07-17-2016 [facility] Medications Completed/Discontinued Medications Medication Drug Class(es) Dates Sig (Normalized) Sig (Original) [id number] 200 actuat albuterol 0.09 mg/actuat metered dose [...] 135.44 kg Luiz Savage MD Work Phone: [facility] 05-25-2022 17:50-0500 Diastolic blood pressure 84 mm[Hg] Luiz Savage MD Work Phone: [facility] 05-25-2022 17:50-0500 Heart rate 76 /min Luiz Savage MD Work Phone: [facility] 05-25-2022 17:50-0500 Respiratory rate 16 /min Luiz Savage MD Work Phone: [facility] 05-25-2022 17:50-0500 Systolic blood pressure 130 mm[Hg] Luiz Savage MD Work Phone: [facility] Encounters Encounter Date Encounter Type Care Provider Facility Start: 03-02-2023 Telephone encounter Nuzhat [address] Procedures Date Procedure Procedure Detail Performing Clinician Start: 04-04-2019 Lipid 1996 panel - S pat or Plasma Nuzhat [facility] Plan of Treatment Date Care Activity Detail Author Start: 02-14-2028 Urine microalbumin profile [facility] Start: 04-04-2024 Lipid 1996 panel - S pat or Plasma Lipid Screening [facility] Start: 04-04-2024 LIPID SCREEN LIPID SCREEN [facility] Start: 05-25-2023 ANNUAL PCP TEAM QUALITY CONTROL OPERATOR JOSE F DISEASE VISIT ANNUAL PCP TEAM CHRONIC DISEASE VISIT [facility] Start: 02-10-2023 Influenza vaccination C [facility] Start: 06-25-2022 End: 08-25-2022 Comprehensive metabolic 2000 panel - Serum or Plasma COMP METABOLIC PANEL Lab Routine Type 2 diabetes mellitus with hyperglycemia, without long-term current use of insulin (HCC) Expected: 06/25/2022 (Approximate), Expires: 08/25/2022 [facility] Work Phone: Immunizations Immunization Date Immunization Notes Care Provider Delmar saleh 10-02-2020 COVID-19 original vaccine, age 12+ yr, monovalent (PFIZER-BIONTECH - PURPLE TOP) Luiz Savage MD Work Phone: [facility] 09-11-2020 COVID-19 original vaccine, age 12+ yr, monovalent (PFIZER-BIONTECH - PURPLE TOP) Luiz Savage MD Work Phone: [facility] 03-12-2020 influenza, seasonal, injectable Luiz Savage MD Work Phone: [facility] 03-12-2020 influenza virus vaccine, unspecified formulation Nuzhat Laureano [facility] 03-26-2019 influenza, seasonal, injectable Luiz Savage MD Work Phone: [facility] 04-12-2018 influenza, seasonal, injectable Luiz Savage MD Work Phone: [facility] 02-13-2018 tetanus toxoid, redu kelli diphtheria toxoid, and acellular pertussis vaccine, adsorbed Luiz Savage MD Work Phone: [facility] Payers Date Payer Category Payer Private Health [facility] [id number] 2018-Present [phone] [address] [address] [place] [address] [facility] [id number] 06-12-2018 Unknown [id number] Social History Date Type Detail Facility Start: 12-23-2020 End: 05-25-2022 Tobacco smoking status NHIS Smokes tobacco daily [facility] End: 11-08-2008 History of tobacco use Cigarette Smoker [facility] Start: 12-23-2020 End: 06-28-2022 Cigarettes smoked current (pack per day) - Reported 0.5 [facility] Start: 12-23-2020 End: 05-25-2022 Tobacco use and exposure Former smokeless tobacco user [facility] History of tobacco use Chews Tobacco [facility] Start: 06-22-2021 End: 05-25-2022 Alcohol intake Current drinker of alcohol (finding) [facility] Start: 12-21-2020 End: 05-23-2022 History SDOH Alcohol Frequency 3 [facility] Start: 12-21-2020 End: 05-23-2022 History SDOH Alcohol Std Drinks 2 [facility] Start: 12-21-2020 End: 05-23-2022 History SDOH Social Connections Get Together 1 [facility] Start: 12-21-2020 End: 05-23-2022 History SDOH Social Connections Living 5 [facility] Start: 12-21-2020 History SDOH Stress 4 [facility] Start: 12-21-2020 Education 12 [facility] Start: 04-04-2019 End: 05-25-2022 Tobacco Comment Trying to quit [facility] Start: 1975 Sex Assigned At Male [facility] Start: 05-23-2022 History SDOH Social Connections Phone 98 [facility] Start: 05-23-2022 End: 06-28-2022 Social connection and isolation panel [facility] In a typical week, h ow many times do you talk on the telephone with family, friends, or neighbors? Patient refused [facility] Do you belong to any clubs or organizations such as hinduism groups, unions, fraternal or athletic groups, or school groups? No [facility] Are you now , , , , never or living with a partner? [facility] How often to you hav e a drink containing alcohol? 2-4 times a month [facility] How many standard dr inks containing alcohol do you have on a typical day? 3 or 4 [facility] How often do you hav e 6 or more drinks on 1 occasion? Less than monthly [facility] Do you feel stress - tense, restless, nervous, or anxious, or unable to sleep at night because your mind is troubled all the time - these days [OSQ] Only a little [facility] (I/We) worried an er (my/our) food would run out before (I/we) got money to buy more. Never true [facility] Start: 12-18-2020 Gender identity Identifies as male gender (finding) [facility] Clinical Notes 01-09-2009 to 03-03-2023 Telephone [...] Can go to my [facility] at [facility] or go to [facility] which [...] 2023 8:55 AM documented in this encounter [facility] 12-27-2022 Note HNO ID: [id number] Author: Juno Chamorro APRN.FITNESS SALES ASSOCIATE Service: ? Author Type: Nurse Practitioner Type: Progress Notes Filed: 12/27/2022 11:49 AM Note Text: Patient triaged at [facility], here for abdominal discomfort, profuse vomiting, high blood sugar. Patient sweating diffusely and vomiting during triage. I recommend ER, patient declines squad, coworker to drive pov to [facility]. [facility] 12-27-2022 History of Presen t illness Narrative Patient triaged at [facility], here for abdominal discomfort, profuse vomiting, high blood sugar. Patient sweating diffusely and vomiting during triage. I recommend ER, patient declines squad, coworker to drive pov to [facility]. documented in this encounter [facility] 09-05-2022 Miscellaneous Notes Formattin g of this note might be different from the original. Pt was d/c from ED with Metformin 500 mg bid. Rx written on med list is for once daily. Please advise. Alyssia Tapia Ma documented in this encounter [facility] 05-30-2022 Miscellaneous Notes Formattin g of [...] Alyssia Tapia Ma documented in this encounter [facility] 05-26-2022 Miscellaneous Notes Formattin g of this note might be different from the original. Telephoned the patient to schedule a new Primary Care pharmacy appt. Left a message. documented in this encounter [facility] 05-25-2022 Note HNO ID: [id number] Author: Luiz Savage MD Service: ? Author Type: Physician Type: Progress Notes Filed: 05/25/2022 6:53 PM Note Text: Chief Complaint ER follow up/Diabetes new diagnosis HPI Erasto Chapman is a 46 year old male who presents here today for ER Follow Up.. Pt presented to [facility] ER on 05/17/22 for abdominal pain, elevated [...] family history of DM. Below copied from [facility] [employer]: History of Present Illness Chief Complaint: Hyperglycemia [...] blurry today. 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 Patient also admits to mild headache. [facility] Narrative Medical decision making narrative: Patient [...] ectopy. Health M (more content not included)... [facility] 05-25-2022 History of Presen t illness Narrative Chief Complaint ER follow up/Diabetes new diagnosis HPI Erasto Chapman is a 46 year old male who presents here today for ER Follow Up.. Pt presented to [facility] ER on 05/17/22 for abdominal pain, elevated [...] family history of DM. Below copied from [facility]: History of Present Illness Chief Complaint: [...] blurry today. 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 Patient also admits to mild headache. [facility] Narrative Medical decision making narrative: Patient [...] or Tdap) due on 02/14/2028 Data reviewed [facility] ER records from 05/17/22 ASSESSMENT/PLAN: 1. Type 2 diabetes mellitus with hyperglycemia, without long-term current use of insulin (HCC) - ICD9: 250.00, 790.29, ICD10: E11.65 newly diagnosed - Continue current medications - Structured Diabetes Program for education and assistance - CONSULT TO [facility] NURSE DIABETES - OPERATIONAL COMMUNICATION CHIEF [CONSULT TO SOCIAL WORK] - CONSULT TO [...] Luiz Savage MD documented in this encounter [facility] 04-27-2022 Miscellaneous Notes Formattin g of [...] Jamia Teague LPN documented in this encounter [facility] 04-19-2022 Note HNO ID: [id number] Author: Alyssia Tapia Ma Service: ? Author Type: ? Type: Progress Notes Filed: 04/19/2022 11:27 AM Note Text: Pt was contacted, see TE from today, 04/19/22. Closing this encounter. Alyssia Tapia Ma [facility] 04-18-2022 Note HNO ID: [id number] Author: Luiz Savage MD Service: ? Author Type: Physician Type: Progress Notes Filed: 04/19/2022 11:27 AM Note Text: Telephone call from Dr Casanova at [facility] with an update on pt. Renard was recently admitted to [facility] with recurrent rib fractures and pleural effusion. He should have appt for follow up in our office - he needs workup for his recurrent fractures ,and he is to follow up with María Garcia at [facility]. Please try to reach pt again about scheduling follow up. Luiz Savage MD [facility] 04-07-2022 Miscellaneous Notes Formattin g of this note might be different from the original. See pt outreach encounter. Amanda Bright Ma 1st attempt to reach patient for TCM appointment. Unable to reach patient. Left VM to return call to office. Please assist patient with scheduling. Olivia Abdalla MA documented in this encounter [facility] 04-06-2022 Note HNO ID: [id number] Author: Olivia Abdalla MA Service: ? Author Type: [employer] Type: Progress Notes Filed: 04/07/2022 11:55 AM Note Text: TRANSITION CARE MANAGEMENT (TCM) INITIAL CONTACT [employer] Outreach Provider Action/FYI: No contact made-04/06 VM left to call back Initial contact with patient post discharge, spoke to: N/A-contact not made left message on VM to RCTO to schedule. TRANSITION CARE MANAGEMENT INITIAL OUTREACH DOCUMENTATION: Date of Outreach: 04/06/2022 Date of Discharge 04/04/2022 Some recent data might be hidden SUMMARY: -Pt discharged from [facility] on 04/04/22. -Admitted for: Pleural effusion on [...] recent hospitalization: Placed for provider to review [facility] 04-06-2022 History of Presen t illness Narrative TRANSITION CARE MANAGEMENT (TCM) INITIAL CONTACT [employer] Outreach Provider Action/FYI: No contact made-04/06 VM left to call back Initial contact with patient post discharge, spoke to: N/A-contact not made left message on VM to RCTO to schedule. TRANSITION CARE MANAGEMENT INITIAL OUTREACH DOCUMENTATION: Date of Outreach: 04/06/2022 Date of Discharge 04/04/2022 Some recent data might be hidden SUMMARY: -Pt discharged from [facility] on 04/04/22. -Admitted for: Pleural effusion on [...] provider to review documented in this encounter [facility] 04-06-2022 Note Patient Outreach (FA MPWS) ERASTO CHAPMAN ([id number]) 1975 M Date Time Provider Department 04/06/22 OLIVIA ABDALLA During your visit today, we recorded the following information about you: Olivia Abdalla MA 04/07/2022 11:55 AM Signed TRANSITION CARE MANAGEMENT (TCM) INITIAL CONTACT [employer] Outreach Provider Action/FYI: No contact made-04/06 VM left to call back Initial contact with patient post discharge, spoke to: N/A-contact not made left message on VM to [facility]O to schedule. TRANSITION CARE MANAGEMENT INITIAL OUTREACH DOCUMENTATION: Date of Outreach: 04/06/2022 Date of Discharge 04/04/2022 Some recent data might be hidden SUMMARY: -Pt discharged from [facility] on 04/04/22. -Admitted for: Pleural effusion on [...] - Fully Assessed Reason for Visit: TCM [facility] D/C 04/04/22 [Other] Prescriptions as of 04/07/2022 [...] Status:Closed by AMANDA BRIGHT MA on 04/07/22 [facility] documented as of this encounter (statuses as of 04/07/2022) [facility] History of Past illness Narrative* Problem Noted Date Resolved Date Crushing injury of finger(s) 01/09/2009 documented as of this encounter (statuses as of 04/27/2022) [facility] History of Past illness Narrative* Problem Noted Date Resolved Date Crushing injury of finger(s) 01/09/2009 documented as of this encounter (statuses as of 05/25/2022) [facility] History of Past illness Narrative* Problem Noted Date Resolved Date Crushing injury of finger(s) 01/09/2009 documented as of this encounter (statuses as of 05/26/2022) [facility] History of Past illness Narrative* Problem Noted Date Resolved Date Crushing injury of finger(s) 01/09/2009 documented as of this encounter (statuses as of 05/30/2022) [facility] History of Past illness Narrative* Problem Noted Date Resolved Date Crushing injury of finger(s) 01/09/2009 documented as of this encounter (statuses as of 09/06/2022) [facility] History of Past illness Narrative* Problem Noted Date Diagnosed Date Resolved Date Crushing injury of finger(s) 01/09/2009 02/10/2016 documented as of this encounter (statuses as of 12/27/2022) [facility] History of Past illness Narrative* Problem Noted Date Diagnosed Date Resolved Date Crushing injury of finger(s) 01/09/2009 02/10/2016 documented as of this encounter (statuses as of 03/03/2023) [facility] Recurrent major depression in partial remission (HCC) Major depressive disorder, recurrent episode, in partial or unspecified remission [facility] Diagnosis Type 2 diabetes mellitus with hyperglycemia, without long-term current use of insulin (HCC)- Primary [facility] Diagnosis Type 2 diabetes mellitus with hyperglycemia, without long-term current use of insulin (HCC) [facility] Diagnosis Nausea and vomiting, unspecified vomiting type- Primary Abdominal discomfort Abdominal pain, unspecified site [facility] Diagnosis Vertigo- Primary Dizziness and giddiness documented in this encounter [facility] Summary Purpose Family History No Family [...] MDM 60-74 MINUTES Luiz Savage MD [address] [place] [address] End[facility] [address] [place] [address] Referral ID Status Reason Start Date Expiration Date Visits Requested Visits Authorized [id number] Authorized PCP Requested Referral 2 05/25/2023 1 1 Specialty Diagnoses / Procedures Referred By Contac t Referred To Contact Ent - Otolaryngology Diagnoses Vertigo Procedures CONSULT TO ENT OFFICE/OUTPATIENT [facility] 60-74 MINUTES Manohar Nagel APRN.FITNESS SALES ASSOCIATE [address] [place] [address] Referral ID Status Reason Start Date Expiration Date Visits Requested Visits Authorized [id number] Authorized PCP Requested Referral 03/03/2023 03/02/2024 1 1 Additional Source Comments (unrecognized sect ion and content) No Status Records FoundNo Status Records Found INFORMATION SOURCE (unrecogn ized section and content) DATE CREATED AUTHOR AUTHOR'S ORGANIZ ATION 03/05/2023 [facility] Source Comments (unrecognize d section and content) In the event this informatio n is protected by the Federal Confidentiality of Alcohol and Drug Abuse Patient Records regulations: The Federal rules restrict any use of the information to criminally investigate or prosecute any alcohol or drug abuse patient.[facility] the event this information is protected by the Federal Confidentiality of Alcohol and Drug Abuse Patient Records regulations: The Federal rules restrict any use of the information to criminally investigate or prosecute any alcohol or drug abuse patient.[facility] the event this information is protected by the Federal Confidentiality of Alcohol and Drug Abuse Patient Records regulations: The Federal rules restrict any use of the information to criminally investigate or prosecute any alcohol or drug abuse patient.[facility] the event this information is protected by the Federal Confidentiality of Alcohol and Drug Abuse Patient Records regulations: The Federal rules restrict any use of the information to criminally investigate or prosecute any alcohol or drug abuse patient.[facility] the event this information is protected by the Federal Confidentiality of Alcohol and Drug Abuse Patient Records regulations: The Federal rules restrict any use of the information to criminally investigate or prosecute any alcohol or drug abuse patient.[facility] the event this information is protected by the Federal Confidentiality of Alcohol and Drug Abuse Patient Records regulations: The Federal rules restrict any use of the information to criminally investigate or prosecute any alcohol or drug abuse patient.[facility] the event this information is protected by the Federal Confidentiality of Alcohol and Drug Abuse Patient Records regulations: The Federal rules restrict any use of the information to criminally investigate or prosecute any alcohol or drug abuse patient.[facility] the event this information is protected by the Federal Confidentiality of Alcohol and Drug Abuse Patient Records regulations: The Federal rules restrict any use of the information to criminally investigate or prosecute any alcohol or drug abuse patient.[facility] the event this information is protected by the Federal Confidentiality of Alcohol and Drug Abuse Patient Records regulations: The Federal rules restrict any use of the information to criminally investigate or prosecute any alcohol or drug abuse patient.[facility] Reason for Visit (unrecogniz ed section and content) Reason Onset Date Comments TCM [facility] D/C 04/04/22 04/06/2022 Reason Onset Date Comments Refill Request 04/27/2022 Reason Comments New Primary Care Pharmacy Appt. Reason Comments Appointment Reason Comments Orders Care Teams (unrecognized sec tion and content) Tar Worker Relationship Specialty Start Date End Date Luiz Savage MD [address] [facility] [place] [address] PCP - General Family Medicine 11/04/14 Tar Worker Relationship Specialty Start Date End Date Luiz Savage MD [address] [place] [place] [address] PCP - General Family Medicine 11/04/14 Tar Worker Relationship Specialty Start Date End Date Luiz Savage MD [address] [place] [place] [address] PCP - General Family Medicine 11/04/14 Tar Worker Relationship Specialty Start Date End Date Luiz Savage MD [address] [place] [place] [address] PCP - General Family Medicine 11/04/14 Tar Worker Relationship Specialty Start Date End Date Luiz Savage MD [address] [place] [place] [address] PCP - General Family Medicine 11/04/14 Tar Worker Relationship Specialty Start Date End Date Luiz Savage MD [address] [place] [place] [address] PCP - General Family Medicine 11/04/14 Tar Worker Relationship Specialty Start Date End Date Luiz Savage MD [address] [place] [address] PCP - General Family Medicine 11/04/14 FOR [...] BE BASED ON THE PRIMARY CLINICAL RECORDS. [facility] [employer] [facility]. provides no warranty or guarantee of the accuracy or completeness of information in this document.
[2023-07-07] MEDS: Insulin Lispro 100 UNIT/ML INSULN.PEN 15 UNIT SC (14:52)
[2023-07-07] MEDS: 0.9% Normal Saline (1000mL) 1,000 ML 1000 ML IV ×2 (14:52→15:09)
[2023-07-07 15:43] LABS: Cholesterol 268 mg/dL (200); High Density Lipoprotein 37 mg/dL; Thyroid Stim Hormone (TSH) 2.27 uIU/mL (0.358-3.74); Triglycerides 716 mg/dL
[2023-07-07 17:02] LABS: Bedside Glucose 392 mg/dL (74-106)
== END 2023-07-07 17:12 | disposition home or self-care (01) ==
PROVIDERS: Hospitalist; Emergency Provider Emergency Medicine; PCP Family Medicine; Visit Provider Emergency Medicine
DX: E11.10 Type 2 diabetes mellitus with ketoacidosis without coma (principal); E87.6 Hypokalemia; F17.210 Nicotine dependence, cigarettes, uncomplicated; F32.A Depression, unspecified; I10 Essential (primary) hypertension; E66.9 Obesity, unspecified; Z79.899 Other long term (current) drug therapy; Z79.84 Long term (current) use of oral hypoglycemic drugs
CPT/HCPCS: 80048; 80061; 82962; 84443; 85025; 87631; 96360; 96361; 99283; J7030; A4216